=== PATIENT | female | born 1960 | race Caucasian/White ===

== ENCOUNTER 2019-03-05 12:00 | Inpatient (IN) | payer BC ==
[2019-03-05] MEDS ORDERED: SODIUM CHLORIDE 0.9% 1,000 ML IV STA (12:54)
[2019-03-05 13:21] LABS: Anisocytosis Slight; Basophils % (A) 0 %; Eosinophils # (A) 0.1 k/uL (0-0.7); Eosinophils % (A) 1 %; HCT 36.1 % (34.0-46.0); HGB 11.3 gm/dL (11.4-16.0); Hypochromasia Slight; Lymphocytes # (A) 0.8 k/uL (1.0-4.8); Lymphocytes % (A) 13 %; MCH 27.8 pg (25.0-35.0); MCHC 31.3 g/dL (31.0-37.0); MCV 88.8 fL (80.0-100.0); Mean Platelet Volume 7.5; Monocytes # (A) 0.4 k/uL (0-1.0); Monocytes % (A) 6 %; Neutrophils # (A) 4.7 k/uL (1.3-7.7); Neutrophils % (A) 78 %; Platelet Count 360 k/uL (150-450); RBC 4.06 m/uL (3.80-5.40); RDW 16.6 % (11.5-15.5); WBC 6.1 k/uL (3.8-10.6)
[2019-03-05 13:35] LABS: Albumin 4.1 g/dL (3.5-5.0); Magnesium 2.1 mg/dL (1.6-2.3); Potassium 4.6 mmol/L (3.5-5.1); Total Bilirubin 2.5 mg/dL (0.2-1.3); Total Protein 7.7 g/dL (6.3-8.2)
[2019-03-05 13:39] LABS: Partial Thromboplastin Time 22.1 sec (22.0-30.0); Prothrombin Time 10.5 sec (9.0-12.0)
[2019-03-05] MEDS ORDERED: ORPHENADRINE 30 MG/ML 2 ML VIAL IVP STA (13:41)
[2019-03-05] MEDS ORDERED: methylPREDNISolone SOD SUCCI 125 MG/2 ML VIAL IV STA (13:41)
[2019-03-05] MEDS ORDERED: KETOROLAC 30 MG/ML 1 ML VIAL IVP STA (13:41)
--- NOTE | 2019-03-05 14:02 | ED ---
Back Pain HPI - General Chief Complaint: Back Pain/Injury Stated Complaint: sciatica pain, weakness Time Seen by Provider: 03/05/19 12:11 Source: patient, RN notes reviewed, old records reviewed Limitations: no limitations - History of Present Illness Initial Comments: Patient is a 50-year-old female with multiple complaints. She states that she's been having bilateral lower back pain, related to sciatica pain radiating down her leg. She reports severe over the past few weeks. Patient states that she also has decreased appetite, complains of some episodes of rectal pain and some bloody stools. She states that she feels generally weak and fatigued. Patient states that she's had no fevers. She states that she feels extremely nauseated again about food. Patient reports an unintentional weight loss. She denies any chest pain or shortness of breath. Patient states she does not go to the doctor often. She is never had a history of colonoscopy. - Related Data Home Medications Medication Instructions Recorded Confirmed No Known Home Medications 03/05/19 03/05/19 Allergies Allergy/AdvReac Type Severity Reaction Status Date / Time No Known Allergies Allergy Verified 03/05/19 13:17 Review of Systems ROS Statement: Those systems with pertinent positive or pertinent negative responses have been documented in the HPI. ROS Other: All systems not noted in ROS Statement are negative. Past Medical History Past Medical History: No Reported History History of Any Multi-Drug Resistant Organisms: None Reported Past Surgical History: No Surgical Hx Reported Past Psychological History: No Psychological Hx Reported Smoking Status: Never smoker Past Alcohol Use History: Rare Past Drug Use History: None Reported General Exam - General Exam Comments Initial Comments: 50-year-old female. Patient appears generally fatigued and weak. Limitations: no limitations Head exam: Present: atraumatic, normocephalic, normal inspection Eye exam: Present: normal appearance, PERRL, EOMI. Absent: scleral icterus, conjunctival injection, periorbital swelling ENT exam: Present: normal exam, mucous membranes moist Neck exam: Present: normal inspection. Absent: tenderness, meningismus, lymphadenopathy Respiratory exam: Present: normal lung sounds bilaterally. Absent: respiratory distress, wheezes, rales, rhonchi, stridor Cardiovascular Exam: Present: regular rate, normal rhythm, normal heart sounds. Absent: systolic murmur, diastolic murmur, rubs, gallop, clicks GI/Abdominal exam: Present: soft, normal bowel sounds. Absent: distended, tenderness, guarding, rebound, rigid Rectal exam: Present: normal inspection, normal rectal tone, tenderness (Patient has rectal tenderness. Positive fecal occult with bright red blood.) Extremities exam: Present: normal inspection, full ROM, normal capillary refill. Absent: tenderness, pedal edema, joint swelling, calf tenderness Back exam: Present: normal inspection Neurological exam: Present: alert, oriented X3, CN II-XII intact Course Vital Signs 03/05/19 12:06 Temperature 97.4 F L Pulse Rate 67 Respiratory 18 Rate Blood Pressure 176/111 O2 Sat by Pulse 96 Oximetry Medical Decision Making - Medical Decision Making Patient is a 50-year-old female with multiple complaints complaining of fatigue, generalized weight loss. She also complained of lower back pain radiating down her legs. With patient's multiple symptoms we did a workup. Patient was found have a significantly elevated transaminases, elevated calcium. With the concerns are some intermittent rectal pain we did do a rectal exam which was positive for tenderness and bright red blood. No significant hemorrhoid appreciated. Patient underwent CT evident pulse was social concern for a 8 cm mass seemed to be setting from the cervix but correlating with the rectum with rectal inflammation. There is also evidence of adenopathy throughout the entire abdomen and pelvis and multiple metastases over the liver. Patient was informed of these results. Concern for rectal cancer with metastases. I discussed the case with Dr. Clark who agrees to admission. I also discussed the case with Dr. patton who will be on consult. The same patiently admitted for IV fluids and pain management. - Lab Data Result diagrams: 03/05/19 13:11 03/05/19 13:11 Lab Results 03/05/19 03/05/19 03/05/19 Range/Units 13:11 13:11 13:11 WBC 6.1 (3.8-10.6) k/uL RBC 4.06 (3.80-5.40) m/uL Hgb 11.3 L (11.4-16.0) gm/dL Hct 36.1 (34.0-46.0) % MCV 88.8 (80.0-100.0) fL MCH 27.8 (25.0-35.0) pg MCHC 31.3 (31.0-37.0) g/dL RDW 16.6 H (11.5-15.5) % Plt Count 360 (150-450) k/uL Neutrophils % 78 % Lymphocytes % 13 % Monocytes % 6 % Eosinophils % 1 % Basophils % 0 % Neutrophils # 4.7 (1.3-7.7) k/uL Lymphocytes # 0.8 L (1.0-4.8) k/uL Monocytes # 0.4 (0-1.0) k/uL Eosinophils # 0.1 (0-0.7) k/uL Basophils # 0.0 (0-0.2) k/uL Hypochromasia Slight Anisocytosis Slight PT 10.5 (9.0-12.0) sec INR 1.0 (<1.2) APTT 22.1 (22.0-30.0) sec Sodium 137 (137-145) mmol/L Potassium 4.6 (3.5-5.1) mmol/L Chloride 95 L (98-107) mmol/L Carbon Dioxide 28 (22-30) mmol/L Anion Gap 14 mmol/L BUN 25 H (7-17) mg/dL Creatinine 1.02 (0.52-1.04) mg/dL Est GFR (CKD-EPI)AfAm 70 (>60 ml/min/1.73 sqM) Est GFR (CKD-EPI)NonAf 61 (>60 ml/min/1.73 sqM) Glucose 101 H (74-99) mg/dL Calcium 12.0 H (8.4-10.2) mg/dL Magnesium 2.1 (1.6-2.3) mg/dL Total Bilirubin 2.5 H (0.2-1.3) mg/dL AST 430 H (14-36) U/L ALT 144 H (9-52) U/L Alkaline Phosphatase 697 H (38-126) U/L Troponin I (0.000-0.034) ng/mL Total Protein 7.7 (6.3-8.2) g/dL Albumin 4.1 (3.5-5.0) g/dL Amylase 47 (30-110) U/L Lipase 88 (23-300) U/L TSH 2.100 (0.465-4.680) mIU/L Urine Color Urine Appearance (Clear) Urine pH (5.0-8.0) Ur Specific [place] (1.001-1.035) Urine Protein (Negative) Urine Glucose (UA) (Negative) Urine Ketones (Negative) Urine Blood (Negative) Urine Nitrite (Negative) Urine Bilirubin (Negative) Urine Urobilinogen (<2.0) mg/dL Ur Leukocyte Esterase (Negative) Urine RBC (0-5) /hpf Urine WBC (0-5) /hpf Ur Squamous Epith Cells (0-4) /hpf Urine Mucus (None) /hpf Stool Occult Blood (Negative) 03/05/19 03/05/19 03/05/19 Range/Units 13:11 14:30 15:50 WBC (3.8-10.6) k/uL RBC (3.80-5.40) m/uL Hgb (11.4-16.0) gm/dL Hct (34.0-46.0) % MCV (80.0-100.0) fL MCH (25.0-35.0) pg MCHC (31.0-37.0) g/dL RDW (11.5-15.5) % Plt Count (150-450) k/uL Neutrophils % % Lymphocytes % % Monocytes % % Eosinophils % % Basophils % % Neutrophils # (1.3-7.7) k/uL Lymphocytes # (1.0-4.8) k/uL Monocytes # (0-1.0) k/uL Eosinophils # (0-0.7) k/uL Basophils # (0-0.2) k/uL Hypochromasia Anisocytosis PT (9.0-12.0) sec INR (<1.2) APTT (22.0-30.0) sec Sodium (137-145) mmol/L Potassium (3.5-5.1) mmol/L Chloride (98-107) mmol/L Carbon Dioxide (22-30) mmol/L Anion Gap mmol/L BUN (7-17) mg/dL Creatinine (0.52-1.04) mg/dL Est GFR (CKD-EPI)AfAm (>60 ml/min/1.73 sqM) Est GFR (CKD-EPI)NonAf (>60 ml/min/1.73 sqM) Glucose (74-99) mg/dL Calcium (8.4-10.2) mg/dL Magnesium (1.6-2.3) mg/dL Total Bilirubin (0.2-1.3) mg/dL AST (14-36) U/L ALT (9-52) U/L Alkaline Phosphatase (38-126) U/L Troponin I <0.012 (0.000-0.034) ng/mL Total Protein (6.3-8.2) g/dL Albumin (3.5-5.0) g/dL Amylase (30-110) U/L Lipase (23-300) U/L TSH (0.465-4.680) mIU/L Urine Color Yellow Urine Appearance Cloudy H (Clear) Urine pH 5.5 (5.0-8.0) Ur Specific [place] 1.028 (1.001-1.035) Urine Protein Trace H (Negative) Urine Glucose (UA) Negative (Negative) Urine Ketones Negative (Negative) Urine Blood Trace H (Negative) Urine Nitrite Negative (Negative) Urine Bilirubin 1+ H (Negative) Urine Urobilinogen 3.0 (<2.0) mg/dL Ur Leukocyte Esterase Trace H (Negative) Urine RBC 1 (0-5) /hpf Urine WBC 8 H (0-5) /hpf Ur Squamous Epith Cells 3 (0-4) /hpf Urine Mucus Occasional H (None) /hpf Stool Occult Blood Positive H (Negative) 03/05/19 14:39 EKG performed at 1421 shows normal sinus rhythm normal EKG. Blood sugar rate of 83 bpm. Intervals 154 ms. Frustration 94 ms. QT QTc is 362/433 ms. No evidence of ST elevation. - Radiology Data Radiology results: report reviewed Large mass measuring up to 8.7 cm in the low pelvis appears to originate from the cervix although abuts to the rectum and could represent an exophytic rectal mass is her circumferential rectal mucosal thickening with history of bloody stool. Innumerable hepatic metastases with the largest was confluently lesion measuring 8.7 cm. Abnormal adenopathy within the abdomen and pelvis presumed to be metastatic. Multiple volume abdominal ascites. Hydropic size of the gallbla dder. Chest x-rays negative for any acute process. Multilevel degenerative disease disease and facet arthropathy. Foraminal encroachment suspected. Follow-up MRI. Disposition Clinical Impression: Rectal mass, Metastases to the liver, Transaminitis Disposition: ADMITTED IP TO THIS HOSP Condition: Stable Is patient prescribed a controlled substance at d/c from ED?: No Referrals: None,Stated [Primary Care Provider] - 1-2 days Time of Disposition: 16:51
--- NOTE | 2019-03-05 14:16 | XR ---
EXAMINATION TYPE: XR chest 2V DATE OF EXAM: 03/05/2019 COMPARISON: NONE TECHNIQUE: PA and lateral views submitted. HISTORY: Chest pain FINDINGS: The lungs are clear and there is no pneumothorax, pleural effusion, or focal pneumonia. Hypertrophi c and degenerative change of the spine. IMPRESSION: 1. No acute process.
--- NOTE | 2019-03-05 14:17 | XR ---
EXAM TYPE: LUMBAR SPINE X RAY SERIES COMPARISON: NONE HISTORY: Pain TECHNIQUE: 3 views are submitted. FINDINGS: Alignment is anatomic. The pedicles are intact. The transverse processes are intact. There is mult ilevel degenerative disc disease and facet arthropathy. Diffuse osteopenia noted. IMPRESSION: 1. Multilevel degenerative disc disease and facet arthropathy. Multilevel foraminal encroachment susp ected. Follow-up MRI recommended
[2019-03-05] MEDS ORDERED: MORPHINE SULFATE 4 MG/ML SYRINGE IVP STA (15:48)
--- NOTE | 2019-03-05 15:51 | CT ---
EXAMINATION TYPE: CT abdomen pelvis w con DATE OF EXAM: 03/05/2019 HISTORY: Lower back pain, bloody stool and nausea CT DLP: 1430.9mGycm Automated Exposure Control for Dose Reduction was Utilized. CONTRAST: CT scan of the abdomen and pelvis is performed with IV Contrast, patient injected with 100 mL of Isov ue 300. COMPARISON: None. FINDINGS: There are innumerable hepatic masses compatible with multifocal hepatic metastasis. The lar gest most confluent mass seen centrally within the liver measures up to 8.7 x 5.7 cm. There is also p erihepatic fluid and hydropic size of the gallbladder measuring up to 10.7 cm. An abnormal mass in the low pelvis appears cervical and origin and is bilobed measuring at least 8.7 x 5.9 cm. This impresses upon the rectum and less likely originates from the rectum. There are also m ultiple abnormal lymph nodes in the pelvis measuring up to 2.0 x 2.9 cm marked on image 78 in the mes orectal fascia. Free fluid is seen dependently within the pelvis. The spleen, adrenal glands, pancreas, and kidneys are of unremarkable enhancement and morphology. No hydronephrosis is seen of either kidney. There is slight asymmetry in size of the kidneys, right grea ter than left with malrotation of the right kidney. Diastases recti is noted. There is no dilated large or small bowel. Circumferential rectal wall thick ening may be reactive. Fluid is seen surrounding the splenic flexure. Fluid is also seen near the cec um although the appendix appears within normal limits in size and is air-filled. Mild atherosclerosis is seen in the abdominal aorta and its branches. Abnormal adenopathy is seen near the earle hepatis and within the gastric hepatic ligament with lymph node on image 34 measuring up to 2.3 cm in short axis and abnormal peripancreatic lymph nodes measur ing up to 1.1 cm in short axis. No acute osseous pathology is seen. Degenerative changes of the spine are noted. IMPRESSION: 1. Large bilobed mass measuring up to 8.7 cm in the low pelvis appears to originate from the cervix a lthough abuts the rectum and could represent an exophytic rectal mass as there is circumferential rec zahra mucosal thickening patient's history of bloody stool. Direct visualization of the pelvis is recom mended. 2. Innumerable hepatic metastases with the largest most confluent lesion measuring up to 8.7 cm. 3. Abnormal adenopathy within the abdomen and pelvis is presumed metastatic. 4. Small volume abdominal ascites. 5. Hydropic size of the gallbladder.
[2019-03-05 16:04] LABS: Appearance,Urine Cloudy (Clear); Bilirubin,Urine 1+ (Negative); Blood,Urine Trace (Negative); Color,Urine Yellow; Glucose,Urine (UA) Negative (Negative); Ketones,Urine Negative (Negative); Leukocyte Esterase,Urine Trace (Negative); Mucus,Urine Occasional /hpf; Nitrite,Urine Negative (Negative); PH, Urine 5.5 (5.0-8.0); Protein,Urine Trace (Negative); RBC,Urine 1 /hpf (0-5); Specific Gravity,Urine 1.028 (1.001-1.035); Squamous Epithelial Cell,Urine 3 /hpf (0-4); WBC,Urine 8 /hpf (0-5)
[2019-03-05] MEDS ORDERED: MORPHINE SULFATE 4 MG/ML SYRINGE IV PRN (16:51)
[2019-03-05] MEDS ORDERED: NALOXONE 0.4 MG/ML 1 ML VIAL IV PRN (16:51)
[2019-03-05] MEDS ORDERED: LABETALOL 5 MG/ML VIAL MDV IVP STA (18:10)
--- NOTE | 2019-03-05 18:12 | P.HPIM ---
History of Present Illness H&P Date: 03/05/19 Patient is a 58-year-old female with no known PMH, who hasn't seen a physician for many years presented to the ED with multiple complaints. The patient reports that over the past several years, she has had intermittent lower back pain, which she attributed to DJD and attempted to manage conservatively. She states that her pain radiates to both her buttocks, as it has been previously for several years. She notes that 2 weeks ago however her pain somewhat worsened and she also developed worsening lethargy, weight loss, and anorexia. She made an appointment with a PCP but in light of her worsening lethargy, she decided to come to the ED. She also endorsed noticing occasional bright red blood in her stools which she attributes to constipation and straining. She otherwise denied fever, chills, nausea, vomiting, chest pain, or SOB. She also denied LE weakness. The patient underwent an extensive evaluation w/ CT abd/pelvis w/ contrast showing large bilobed mass measuring up to 8.7 cm in the low pelvis. Innumerable hepatic mets w/ largest being 8.7 cm with abnormal adenopathy within the abdomen and pelvis, presumed metastatic. EKG revealed normal sinus rhythm at 86 bpm. CXR was unremarkable. Laboratory evaluation revealed a troponin of less than 0.012, FOBT positive, total bili elevated at 2.5, AST 430, ALT 144, alk phos 697, WBC 6.1, hemoglobin 11.3, platelets 360, BUN 25, and creatinine 1.02. The patient is being admitted to the medicine service for further evaluation of suspected malignancy. Review of Systems Pertinent positives and negatives as discussed in HPI, a complete review of systems was performed and all other systems are negative. Past Medical History Past Medical History: No Reported History History of Any Multi-Drug Resistant Organisms: None Reported Past Surgical History: No Surgical Hx Reported Past Psychological History: No Psychological Hx Reported Smoking Status: Never smoker Past Alcohol Use History: Rare Past Drug Use History: None Reported Medications and Allergies Home Medications Medication Instructions Recorded Confirmed Type No Known Home Medications 03/05/19 03/05/19 History Allergies Allergy/AdvReac Type Severity Reaction Status Date / Time No Known Allergies Allergy Verified 03/05/19 13:17 Physical Exam Vitals: Vital Signs Temp Pulse Resp BP Pulse Ox 03/05/19 12:06 97.4 F L 67 18 176/111 96 Intake and Output 03/05/19 03/05/19 03/05/19 06:59 14:59 22:59 Other: Weight 101.605 kg General: non toxic, no distress, appears at stated age, obese Derm: no unusual rashes/lesions no unusual ecchymoses, warm, dry Head: atraumatic, normocephalic, symmetric Eyes: EOMI, no lid lag, anicteric sclera, pupils equal round reactive to light ENT: Nose and ears atraumatic, no thrush, no pharyngeal erythema Neck: No thyromegaly, no cervical lymphadenopathy, trachea midline, supple Mouth: no lip lesion, mucus membranes moist Cardiovascular: S1S2 reg, no murmur, positive posterior tibial pulse bilateral, no edema, capillary refill less than 2 seconds Lungs: CTA bilateral, no rhonchi, no rales , no accessory muscle use Abdominal: soft, nontender to palpation, no guarding, no appreciable organomegaly, normal bowel sounds Ext: no gross muscle atrophy, muscle strength 5 out of 5 in all 4 extremities grossly, no contractures, lumbar spinal and paraspinal tenderness Neuro: CN II-XI grossly intact, light touch intact all 4 extremities, finger to nose within normal limits, babinski downards saurabh Psych: Alert, oriented, appropriate affect Results CBC & Chem 7: 03/05/19 13:11 03/05/19 13:11 Labs: Abnormal Lab Results - Last 24 Hours (Table) 03/05/19 03/05/19 03/05/19 Range/Units 13:11 13:11 14:30 Hgb 11.3 L (11.4-16.0) gm/dL RDW 16.6 H (11.5-15.5) % Lymphocytes # 0.8 L (1.0-4.8) k/uL Chloride 95 L (98-107) mmol/L BUN 25 H (7-17) mg/dL Glucose 101 H (74-99) mg/dL Calcium 12.0 H (8.4-10.2) mg/dL Total Bilirubin 2.5 H (0.2-1.3) mg/dL AST 430 H (14-36) U/L ALT 144 H (9-52) U/L Alkaline Phosphatase 697 H (38-126) U/L Urine Appearance (Clear) Urine Protein (Negative) Urine Blood (Negative) Urine Bilirubin (Negative) Ur Leukocyte Esterase (Negative) Urine WBC (0-5) /hpf Urine Mucus (None) /hpf Stool Occult Blood Positive H (Negative) 03/05/19 Range/Units 15:50 Hgb (11.4-16.0) gm/dL RDW (11.5-15.5) % Lymphocytes # (1.0-4.8) k/uL Chloride (98-107) mmol/L BUN (7-17) mg/dL Glucose (74-99) mg/dL Calcium (8.4-10.2) mg/dL Total Bilirubin (0.2-1.3) mg/dL AST (14-36) U/L ALT (9-52) U/L Alkaline Phosphatase (38-126) U/L Urine Appearance Cloudy H (Clear) Urine Protein Trace H (Negative) Urine Blood Trace H (Negative) Urine Bilirubin 1+ H (Negative) Ur Leukocyte Esterase Trace H (Negative) Urine WBC 8 H (0-5) /hpf Urine Mucus Occasional H (None) /hpf Stool Occult Blood (Negative) Assessment and Plan Plan: Pelvic mass, concerning for rectal malignancy w/ mets to liver -Surgery and Oncology consulted -Check CEA and CA 19-9 Abnormal LFTs -Likely secondary to tumor burden -Monitor for now Lower back pain w/ radiation to buttocks -Obtain lumbar spine MRI -Received 125 mg Solumedrol in ED -Neurovascular checks -Fall precautions -Neurology consult Elevated BP -Possibly secondary to pain -Monitor for now -Begin antihypertensives as warranted Normocytic anemia -Likely secondary to GI bleeding in setting of malignancy -Monitor for now DVT prophylaxis -IPCDs The patient is admitted with an anticipated greater than 2 midnight stay for evaluation of rectal malignancy. CODE STATUS:Full Code Discussed with: Patient Anticipated discharge date: 3-[address]: Home A total of 45 minutes was spent on the care of this complex patient more than 50% of the time was spent in counseling and care coordination.
[2019-03-05] MEDS: SODIUM CHLORIDE 0.9% 1,000 ML IV SCH (18:25)
[2019-03-05] MEDS ORDERED: cloNIDine HCL 0.2 MG TAB PO STA (19:59)
[2019-03-06] MEDS: HYDROcodone/APAP 5-325MG 1 EACH TAB PO PRN ×3 (00:19→22:34)
[2019-03-06] MEDS: SODIUM CHLORIDE 0.9% 1,000 ML IV SCH ×3 (04:00→22:34)
[2019-03-06 07:42] LABS: HCT 32.2 % (34.0-46.0); HGB 9.9 gm/dL (11.4-16.0); Hypochromasia Marked; MCH 28.3 pg (25.0-35.0); MCHC 30.8 g/dL (31.0-37.0); Mean Platelet Volume 7.6; Platelet Count 337 k/uL (150-450)
[2019-03-06 07:44] LABS: Albumin 3.7 g/dL (3.5-5.0); Calcium 11.4 mg/dL (8.4-10.2); Potassium 4.9 mmol/L (3.5-5.1); Total Bilirubin 2.3 mg/dL (0.2-1.3)
[2019-03-06] MEDS: PANTOPRAZOLE 40 MG/10 ML VIAL IV SCH (08:37)
--- NOTE | 2019-03-06 08:45 | P.GSCN ---
History of Present Illness Consult date: 03/06/19 Reason for Consult: Pelvic mass with hepatic metastases History of present illness: This a 58-year-old female who was admitted to the hospital with complaints of abdominal pain and bloating. Patient's workup found evidence of metastatic pelvic mass with hepatic metastases. The mass appears to be originating from the cervix. Patient states that she's had a four-month history of abdominal and back pain. She states she has been well and has never seen a physician for this. Past Medical History Past Medical History: No Reported History History of Any Multi-Drug Resistant Organisms: None Reported Past Surgical History: No Surgical Hx Reported Past Psychological History: Depression Smoking Status: Never smoker Past Alcohol Use History: Rare Past Drug Use History: None Reported - Past Family History Mother Family Medical History: Hypertension Additional Family Medical History / Comment(s): triple bypass years ago Father Family Medical History: CVA/TIA Medications and Allergies Home Medications Medication Instructions Recorded Confirmed Type Naproxen Sodium [Aleve] 1 tab-cap PO HS 03/05/19 03/05/19 History Allergies Allergy/AdvReac Type Severity Reaction Status Date / Time No Known Allergies Allergy Verified 03/05/19 22:16 Surgical - Exam Vital Signs Temp Pulse Resp BP Pulse Ox 97.4 F L 67 18 176/111 96 03/05/19 12:06 03/05/19 12:06 03/05/19 12:06 03/05/19 12:06 03/05/19 12:06 - General well developed, no distress - Eyes icteric - ENT normal pinna - Neck no masses - Respiratory normal expansion - Cardiovascular Rhythm: regular - Abdomen Mild diffuse tenderness. There is no rebound or guarding Abdomen: soft Results - Labs 03/06/19 07:03 03/06/19 07:03 Abnormal Lab Results - Last 24 Hours (Table) 03/05/19 03/05/19 03/05/19 Range/Units 13:11 13:11 14:30 RBC (3.80-5.40) m/uL Hgb 11.3 L (11.4-16.0) gm/dL Hct (34.0-46.0) % MCHC (31.0-37.0) g/dL RDW 16.6 H (11.5-15.5) % Lymphocytes # 0.8 L (1.0-4.8) k/uL Chloride 95 L (98-107) mmol/L BUN 25 H (7-17) mg/dL Glucose 101 H (74-99) mg/dL Calcium 12.0 H (8.4-10.2) mg/dL Total Bilirubin 2.5 H (0.2-1.3) mg/dL AST 430 H (14-36) U/L ALT 144 H (9-52) U/L Alkaline Phosphatase 697 H (38-126) U/L Urine Appearance (Clear) Urine Protein (Negative) Urine Blood (Negative) Urine Bilirubin (Negative) Ur Leukocyte Esterase (Negative) Urine WBC (0-5) /hpf Urine Mucus (None) /hpf Stool Occult Blood Positive H (Negative) 03/05/19 03/06/19 03/06/19 Range/Units 15:50 07:03 07:03 RBC 3.50 L (3.80-5.40) m/uL Hgb 9.9 L (11.4-16.0) gm/dL Hct 32.2 L (34.0-46.0) % MCHC 30.8 L (31.0-37.0) g/dL RDW 16.0 H (11.5-15.5) % Lymphocytes # (1.0-4.8) k/uL Chloride (98-107) mmol/L BUN 28 H (7-17) mg/dL Glucose (74-99) mg/dL Calcium 11.4 H (8.4-10.2) mg/dL Total Bilirubin 2.3 H (0.2-1.3) mg/dL AST 370 H (14-36) U/L ALT 132 H (9-52) U/L Alkaline Phosphatase 585 H (38-126) U/L Urine Appearance Cloudy H (Clear) Urine Protein Trace H (Negative) Urine Blood Trace H (Negative) Urine Bilirubin 1+ H (Negative) Ur Leukocyte Esterase Trace H (Negative) Urine WBC 8 H (0-5) /hpf Urine Mucus Occasional H (None) /hpf Stool Occult Blood (Negative) Diabetes panel 03/05/19 03/06/19 Range/Units 13:11 07:03 Sodium 137 138 (137-145) mmol/L Potassium 4.6 4.9 (3.5-5.1) mmol/L Chloride 95 L 98 (98-107) mmol/L Carbon Dioxide 28 29 (22-30) mmol/L BUN 25 H 28 H (7-17) mg/dL Creatinine 1.02 0.99 (0.52-1.04) mg/dL Glucose 101 H 98 (74-99) mg/dL Calcium 12.0 H 11.4 H (8.4-10.2) mg/dL AST 430 H 370 H (14-36) U/L ALT 144 H 132 H (9-52) U/L Alkaline Phosphatase 697 H 585 H (38-126) U/L Total Protein 7.7 7.0 (6.3-8.2) g/dL Albumin 4.1 3.7 (3.5-5.0) g/dL Thyroid panel 03/05/19 Range/Units 13:11 TSH 2.100 (0.465-4.680) mIU/L Calcium panel 03/05/19 03/06/19 Range/Units 13:11 07:03 Calcium 12.0 H 11.4 H (8.4-10.2) mg/dL Albumin 4.1 3.7 (3.5-5.0) g/dL Pituitary panel 03/05/19 03/06/19 Range/Units 13:11 07:03 Sodium 137 138 (137-145) mmol/L Potassium 4.6 4.9 (3.5-5.1) mmol/L Chloride 95 L 98 (98-107) mmol/L Carbon Dioxide 28 29 (22-30) mmol/L BUN 25 H 28 H (7-17) mg/dL Creatinine 1.02 0.99 (0.52-1.04) mg/dL Glucose 101 H 98 (74-99) mg/dL Calcium 12.0 H 11.4 H (8.4-10.2) mg/dL TSH 2.100 (0.465-4.680) mIU/L Adrenal panel 03/05/19 03/06/19 Range/Units 13:11 07:03 Sodium 137 138 (137-145) mmol/L Potassium 4.6 4.9 (3.5-5.1) mmol/L Chloride 95 L 98 (98-107) mmol/L Carbon Dioxide 28 29 (22-30) mmol/L BUN 25 H 28 H (7-17) mg/dL Creatinine 1.02 0.99 (0.52-1.04) mg/dL Glucose 101 H 98 (74-99) mg/dL Calcium 12.0 H 11.4 H (8.4-10.2) mg/dL Total Bilirubin 2.5 H 2.3 H (0.2-1.3) mg/dL AST 430 H 370 H (14-36) U/L ALT 144 H 132 H (9-52) U/L Alkaline Phosphatase 697 H 585 H (38-126) U/L Total Protein 7.7 7.0 (6.3-8.2) g/dL Albumin 4.1 3.7 (3.5-5.0) g/dL - Imaging CT scan - abdomen: report reviewed (Large 9 cm pelvic mass appears to originate from cervix., Multiple hepatic metastases, hydropic gallbladder) Assessment and Plan Assessment: Pelvic mass, 9 cm appears to originate from cervix. Could represent an exophytic rectal mass. The patient will need colonoscopy when stable. She should have a [facility] consultation.
--- NOTE | 2019-03-06 11:37 | P.PN ---
Subjective Progress Note Date: 03/06/19 Patient is a 58-year-old female with no known PMH, who hasn't seen a physician for many years presented to the ED with multiple complaints. The patient reports that over the past several years, she has had intermittent lower back pain, which she attributed to DJD and attempted to manage conservatively. She states that her pain radiates to both her buttocks, as it has been previously for several years. She notes that 2 weeks ago however her pain somewhat worsened and she also developed worsening lethargy, weight loss, and anorexia. She made an appointment with a PCP but in light of her worsening lethargy, she decided to come to the ED. The patient underwent an extensive evaluation w/ CT abd/pelvis w/ contrast showing large bilobed mass measuring up to 8.7 cm in the low pelvis. Innumerable hepatic mets w/ largest being 8.7 cm with abnormal adenopathy within the abdomen and pelvis, presumed metastatic. The patient was admitted for further management of suspected malignancy. General surgery was consulted and recommended an CHEMICAL STRENGTH TESTER consult in light of possible cervical origin of the mass. Patient was seen and examined at the bedside. She notes minimal to almost no lower back pain and otherwise denied any additional complaints. She denied abdominal pain, nausea, vomiting, diarrhea, fever, or chills. She further denied any lower extremity weakness, numbness, tingling, or urinary incontinence or retention. Objective - Vital Signs Vital signs: Vital Signs Temp 97.6 F 03/06/19 04:46 Pulse 81 03/06/19 04:46 Resp 16 03/06/19 04:46 BP 166/94 03/06/19 04:46 Pulse Ox 97 03/06/19 04:46 Intake & Output 03/05/19 03/06/19 03/06/19 18:59 06:59 18:59 Intake Total 1280 Balance 1280 Weight 101.605 kg 101.605 kg Intake: Intake, IV Titration 200 Amount Sodium Chloride 0.9% 1, 200 000 ml @ 100 mls/hr IV . Q10H [facility] Rx#:[id number] Oral 1080 Other: Voiding Method Toilet # Voids 3 - Exam General: Non-toxic, in no acute distress, appears stated age HEENT: NC/AT, anicteric sclerae, moist conjunctiva, no lid-lag, PERRLA Cardiovascular: S1/S2 wnl, no murmurs, rubs, or gallops Lungs: Clear to auscultation, normal respiratory effort, no accessory muscle use Abdominal: Soft, non-tender, non-distended, no guarding, rebound, or rigidity Skin: Warm, dry Extremities: No edema or contractures Psychiatric: Alert and oriented to person, place and time, appropriate affect Neuro: CN II-XII grossly intact, Strength 5/5 in all 4 extremities, Speech intact, Sensation to light touch grossly intact throughout - Labs CBC & Chem 7: 03/06/19 07:03 03/06/19 07:03 Labs: Abnormal Lab Results - Last 24 Hours (Table) 03/05/19 03/05/19 03/05/19 Range/Units 13:11 13:11 14:30 RBC (3.80-5.40) m/uL Hgb 11.3 L (11.4-16.0) gm/dL Hct (34.0-46.0) % MCHC (31.0-37.0) g/dL RDW 16.6 H (11.5-15.5) % Lymphocytes # 0.8 L (1.0-4.8) k/uL Chloride 95 L (98-107) mmol/L BUN 25 H (7-17) mg/dL Glucose 101 H (74-99) mg/dL Calcium 12.0 H (8.4-10.2) mg/dL Total Bilirubin 2.5 H (0.2-1.3) mg/dL AST 430 H (14-36) U/L ALT 144 H (9-52) U/L Alkaline Phosphatase 697 H (38-126) U/L Urine Appearance (Clear) Urine Protein (Negative) Urine Blood (Negative) Urine Bilirubin (Negative) Ur Leukocyte Esterase (Negative) Urine WBC (0-5) /hpf Urine Mucus (None) /hpf Stool Occult Blood Positive H (Negative) 03/05/19 03/06/19 03/06/19 Range/Units 15:50 07:03 07:03 RBC 3.50 L (3.80-5.40) m/uL Hgb 9.9 L (11.4-16.0) gm/dL Hct 32.2 L (34.0-46.0) % MCHC 30.8 L (31.0-37.0) g/dL RDW 16.0 H (11.5-15.5) % Lymphocytes # (1.0-4.8) k/uL Chloride (98-107) mmol/L BUN 28 H (7-17) mg/dL Glucose (74-99) mg/dL Calcium 11.4 H (8.4-10.2) mg/dL Total Bilirubin 2.3 H (0.2-1.3) mg/dL AST 370 H (14-36) U/L ALT 132 H (9-52) U/L Alkaline Phosphatase 585 H (38-126) U/L Urine Appearance Cloudy H (Clear) Urine Protein Trace H (Negative) Urine Blood Trace H (Negative) Urine Bilirubin 1+ H (Negative) Ur Leukocyte Esterase Trace H (Negative) Urine WBC 8 H (0-5) /hpf Urine Mucus Occasional H (None) /hpf Stool Occult Blood (Negative) Assessment and Plan Plan: Pelvic mass, concerning for cervical versus rectal malignancy w/ mets to liver -General surgery recommendations appreciated. CHEMICAL STRENGTH TESTER consulted -Check CEA and CA 19-9 Abnormal LFTs -Likely secondary to tumor burden -Monitor for now Lower back pain w/ radiation to buttocks -MRI lumbar spine is pending -Received 125 mg Solumedrol in ED -Neurovascular checks -Fall precautions -Neurology consult Elevated BP -Possibly secondary to pain -Monitor for now -Begin antihypertensives as warranted Normocytic anemia -Likely secondary to GI bleeding in setting of malignancy -Monitor for now DVT prophylaxis -IPCDs Discussed with: Patient, Sister Anticipated discharge date: 2-[address]: Home A total of 35 minutes was spent on the care of this complex patient more than 50% of the time was spent in counseling and care coordination.
[2019-03-06] MEDS ORDERED: AMPICILLIN-SULBACTAM 3 GM in SODIUM CHLORIDE 0.9% 100 ML IVPB SCH (12:15)
[2019-03-06] MEDS ORDERED: RX INFO: IV CONTRAST WAS GIVEN 1 EACH MISC MISCELLANE PRN (12:25)
--- NOTE | 2019-03-06 12:25 | P.CONS ---
History of Present Illness - Reason for Consult Consult date: 03/06/19 Pelvic mass, liver mass - History of Present Illness The patient is a 58-year-old white female, and overall good health. She has a long-standing history of low back pain with radiation into the buttock area bilaterally, over many years. However the patient has noted a change in her health status, since about late 01/20. She stated that since then her appetite had diminished, as eating would make her nauseous, especially certain kinds of food. She had been losing weight gradually since 08/22 deliberately, but noted accelerated weight loss over the past month. She also noted constipation, and requirement of increased straining for defecation, over the past 2-3 weeks, which she attributed to not eating as well. She also had intermittent episodes of passing small amounts of blood in the stool, which he also attributed to straining. She has continued to work, but noted significant increase in fatigue over the past 1-2 weeks Over the weeks prior to admission, the patient noted a significant increase in her back pain, and also change in character. In addition to radiation down the legs, she also noted increased pain in the central lower back, and radiation in a bandlike fashion across the lower back. She therefore came into the emergency room, and had workup done with CT scans of the abdomen and pelvis. This revealed a large bilobed mass in the central pelvis. This seemed to be arising from the cervix area, causing significant compression on the rectum. Mass alternating from the isthmus/cervix with external compression of the rectum was felt to be more likely, rather than a rectal mass growing exophytically. In addition the patient was noted to have multiple liver lesions, with the dominant one appearing to be due to confluent masses, measuring a total of 8.7 cm in maximal dimension, in the central aspect of the liver Other findings included enlarged portal and gastrohepatic nodes with the largest measuring 2.3 cm, as well as an enlarged pelvic nodes with the largest measuring 2.9 cm. There also appeared to be free fluid in the pelvis. The patient was therefore admitted further management and consult placed. She denied any prior history of malignancy. She has never had a colonoscopy. Her last Pap smear was many years ago. She has not had any vaginal bleeding or spotting Review of Systems Constitutional: Reports chronic pain, Reports fatigue, Reports poor appetite, Reports weakness, Reports weight loss Eyes: denies blurred vision, denies pain Ears: deny: decreased hearing, ear discharge, earache, tinnitus Ears, nose, mouth and throat: Denies headache, Denies sore throat Cardiovascular: Denies chest pain, Denies shortness of breath Respiratory: Denies cough Gastrointestinal: Reports change in bowel habits, Reports constipation, Reports hematochezia Genitourinary: Denies dysuria, Denies hematuria Menstruation: Reports postmenopausal Musculoskeletal: Reports as per HPI, Reports low back pain Integumentary: Denies pruritus, Denies rash Neurological: Denies numbness, Denies weakness Psychiatric: Denies anxiety, Denies depression Endocrine: Reports fatigue, Reports weight change Hematologic/Lymphatic: Reports as per HPI Past Medical History Past Medical History: No Reported History History of Any Multi-Drug Resistant Organisms: None Reported Past Surgical History: No Surgical Hx Reported Past Psychological History: Depression Smoking Status: Never smoker Past Alcohol Use History: Rare Past Drug Use History: None Reported - Past Family History Mother Family Medical History: Hypertension Additional Family Medical History / Comment(s): triple bypass years ago Father Family Medical History: CVA/TIA Medications and Allergies Home Medications Medication Instructions Recorded Confirmed Type Naproxen Sodium [Aleve] 1 tab-cap PO HS 03/05/19 03/05/19 History Allergies Allergy/AdvReac Type Severity Reaction Status Date / Time No Known Allergies Allergy Verified 03/05/19 22:16 Physical Exam Vitals: Vital Signs Temp Pulse Pulse Resp BP BP Pulse Ox 03/06/19 12:00 98.2 F 75 16 165/86 97 03/06/19 08:30 16 03/06/19 04:46 97.6 F 81 16 166/94 97 03/05/19 21:48 97.6 F 89 18 160/96 96 03/05/19 20:15 83 18 145/92 96 03/05/19 19:18 98 F 85 18 160/106 96 03/05/19 17:51 98.1 F 86 18 179/107 95 Intake and Output 03/05/19 03/06/19 03/06/19 22:59 06:59 14:59 Intake Total 290 990 Balance 290 990 Intake: Intake, IV Titration 200 Amount Sodium Chloride 0.9% 1, 200 000 ml @ 100 mls/hr IV . Q10H [facility] Rx#:[id number] Oral 290 790 Other: Voiding Method Toilet Toilet # Voids 1 3 Weight 101.605 kg - Constitutional General appearance: no acute distress - EENT Eyes: EOMI, PERRLA ENT: hearing grossly normal, normal oropharynx - Neck Neck: no lymphadenopathy Thyroid: bilateral: normal size - Respiratory Respiratory: bilateral: CTA - Cardiovascular Rhythm: regularly irregular (Patient is having a pause after every 2-3 beats.) Heart sounds: normal: S1, S2 - Gastrointestinal General gastrointestinal: hepatomegaly (3-4 fingerbreadths below costal margin) - Integumentary Integumentary: normal - Neurologic Neurologic: CNII-XII intact - Musculoskeletal Musculoskeletal: generalized weakness, strength equal bilaterally - Psychiatric Psychiatric: A&O x's 3, appropriate affect Results CBC & Chem 7: 03/06/19 07:03 03/06/19 07:03 Labs: Abnormal Lab Results - Last 24 Hours (Table) 03/05/19 03/05/19 03/05/19 Range/Units 13:11 13:11 14:30 RBC (3.80-5.40) m/uL Hgb 11.3 L (11.4-16.0) gm/dL Hct (34.0-46.0) % MCHC (31.0-37.0) g/dL RDW 16.6 H (11.5-15.5) % Lymphocytes # 0.8 L (1.0-4.8) k/uL Chloride 95 L (98-107) mmol/L BUN 25 H (7-17) mg/dL Glucose 101 H (74-99) mg/dL Calcium 12.0 H (8.4-10.2) mg/dL Total Bilirubin 2.5 H (0.2-1.3) mg/dL AST 430 H (14-36) U/L ALT 144 H (9-52) U/L Alkaline Phosphatase 697 H (38-126) U/L Urine Appearance (Clear) Urine Protein (Negative) Urine Blood (Negative) Urine Bilirubin (Negative) Ur Leukocyte Esterase (Negative) Urine WBC (0-5) /hpf Urine Mucus (None) /hpf Stool Occult Blood Positive H (Negative) 03/05/19 03/06/19 03/06/19 Range/Units 15:50 07:03 07:03 RBC 3.50 L (3.80-5.40) m/uL Hgb 9.9 L (11.4-16.0) gm/dL Hct 32.2 L (34.0-46.0) % MCHC 30.8 L (31.0-37.0) g/dL RDW 16.0 H (11.5-15.5) % Lymphocytes # (1.0-4.8) k/uL Chloride (98-107) mmol/L BUN 28 H (7-17) mg/dL Glucose (74-99) mg/dL Calcium 11.4 H (8.4-10.2) mg/dL Total Bilirubin 2.3 H (0.2-1.3) mg/dL AST 370 H (14-36) U/L ALT 132 H (9-52) U/L Alkaline Phosphatase 585 H (38-126) U/L Urine Appearance Cloudy H (Clear) Urine Protein Trace H (Negative) Urine Blood Trace H (Negative) Urine Bilirubin 1+ H (Negative) Ur Leukocyte Esterase Trace H (Negative) Urine WBC 8 H (0-5) /hpf Urine Mucus Occasional H (None) /hpf Stool Occult Blood (Negative) Chest x-ray: report reviewed CT scan - abdomen: report reviewed CT scan - pelvis: report reviewed Assessment and Plan (1) Pelvic mass in female Narrative/Plan: The patient is presenting with multiple signs and symptoms as detailed in the HPI. She is noted to have a large central pelvic mass, along with what appears to be metastatic disease in the liver. The clinical picture, including imaging studies, and implications were discussed in detail with her and her family. She was advised that this time the primary differential diagnosis is a malignancy arising in the pelvis, with metastasis to the liver. In regards to the primary site, origin from the uterine isthmus or cervix, versus the rectum appears most likely. Based on the computed tomography scan appearance, the former is favored. The patient and her family were advised that the next step would be obtaining a tissue diagnosis. Possible approaches to that could include endoscopic examination of the rectum, as well as pelvic exam by gynecology. Another approach, which I would actually somewhat favour, would be to proceed with a liver biopsy. Post biopsy would be able to confirm malignancy, and staining pattern would generally be able to distinguish between the above-mentioned primary sites. Based on that then direct examination of the primary site can be performed if needed. At this time the patient does not appear to be having any definite bowel obstruction symptoms, or uncontrolled bleeding Prognosis and management options were discussed in general at this time. She was advised that, assuming that metastatic malignancy from one of the above- mentioned sites is confirmed, the mainstay of treatment would be systemic therapy. As metastatic disease from the above sites is not usually considered curable, the objective of treatment would be prolongation of life and palliation of symptoms. Local treatment such as aggressive surgery or radiation would be reserved for palliation of symptoms if needed Current Visit: Yes Status: Acute Code(s): R19.00 - INTRA-ABD AND PELVIC SWELLING, MASS AND LUMP, UNSP SITE SNOMED Code(s): 39588186 (2) Metastases to the liver Narrative/Plan: As above. This is likely responsible for her symptoms of nausea and decreased a ppetite . As noted above, I would recommend proceeding with liver biopsy as initial step. Consult will be placed to IR. Monitor liver enzymes for any evidence of rapidly progressing liver decompensation Current Visit: Yes Status: Acute Code(s): C78.7 - SECONDARY MALIG NEOPLASM OF LIVER AND INTRAHEPATIC BILE DUCT SNOMED Code(s): 02722081 (3) Anemia Narrative/Plan: Differentials include anemia of blood loss, as well as hypoproliferative anemia due to malignancy related inflammation. Iron studies will be ordered. Continue to monitor hemoglobin. Current Visit: Yes Status: Acute Code(s): D64.9 - ANEMIA, UNSPECIFIED SNOMED Code(s): 464048569
--- NOTE | 2019-03-06 14:08 | MR ---
MR lumbar spine wo/w con Lower back pain, malignancy, w/ pain radiating Gadavist Multiplanar, multiecho imaging of the lumbar spine was obtained without contrast on a 3 Kristy magnet. REFERENCE:None. FINDINGS: Paraspinal soft tissues are normal. Vertebral body height is maintained. There is a degenerative grade 1 spondylolisthesis of L4 and L5. Alignment is otherwise maintained. Cord signal is maintained. The conus ends normally at the level of the mid body of L1 At T12-L1, the intervertebral foramina appear well maintained. There is no significant compressive di scopathy the facets are unremarkable. At L1-2, no definite abnormality is seen. At L2-3, there is mild disc space loss and disc desiccation. Intervertebral foramina are well maintai nnamdi. There is a mild, diffuse disc displacement. There is mild hypertrophic change in the facets. At L3-4, is mild disc space loss and disc desiccation. There is a diffuse disc displacement. There is mild, bilateral intervertebral foraminal narrowing. There is hypertrophic changes within the facets. There is mild trefoiling of the thecal sac. At L4-5, intervertebral foramina appear reasonably well-maintained. There is a broad-based disc displ acement. This hypertrophic changes in the facets. There is moderate central canal compromise. At L5-S1, the intervertebral foramina are reasonably well-maintained. There is no significant marilu sive discopathy. There is moderate facet arthropathy. IMPRESSION:
--- NOTE | 2019-03-06 14:33 | CT ---
EXAMINATION TYPE: CT chest w con DATE OF EXAM: 03/06/2019 COMPARISON: None. HISTORY: abnormal abd/pel ct, mets CT DLP: 782 mGycm Automated exposure control for dose reduction was used. CONTRAST: CT scan of the chest is performed with IV Contrast, patient injected with 80 mL of Isovue 300. FINDINGS: The lungs are clear. There is no significant axillary, internal mammary, mediastinal or hil ar adenopathy. There is no pleural or pericardial fluid. The heart is not enlarged. There is mild jenaro cification of the coronary arteries. There are innumerable masses within the all segments of the liver. The spleen is unremarkable. Both adrenal glands are normal. The gallbladder is distended. There is hypertrophic spondylosis within the spine IMPRESSION: 1. NO INTRAPARENCHYMAL LUNG METASTASES. 2. INNUMERABLE LIVER METASTASES.
[2019-03-07] MEDS ORDERED: cloNIDine HCL 0.1 MG TAB PO STA (05:57)
[2019-03-07 07:22] LABS: HCT 32.9 % (34.0-46.0); Hypochromasia Marked; MCHC 30.5 g/dL (31.0-37.0); MCV 88.6 fL (80.0-100.0); Mean Platelet Volume 7.3; Platelet Count 334 k/uL (150-450); RBC 3.71 m/uL (3.80-5.40); RDW 15.3 % (11.5-15.5); Reticulocyte % 3.3 % (0.5-2.0); WBC 6.4 k/uL (3.8-10.6)
[2019-03-07] MEDS: HYDROcodone/APAP 5-325MG 1 EACH TAB PO PRN ×3 (08:57→23:13)
[2019-03-07] MEDS: PANTOPRAZOLE 40 MG/10 ML VIAL IV SCH (08:58)
[2019-03-07] MEDS: SODIUM CHLORIDE 0.9% 1,000 ML IV SCH (08:58)
--- NOTE | 2019-03-07 09:53 | P.PN ---
Progress Note - Text Progress Note Date: 03/07/19 The patient states she feels better. She received fluid hydration yesterday. On exam her vital signs appear stable. Abdomen soft, distended. Pelvic mass with hepatic metastases. Patient will undergo CT-guided liver biopsy. She'll will be placed on full liquid diet.
--- NOTE | 2019-03-07 11:11 | P.PN ---
Subjective Progress Note Date: 03/07/19 Patient is a 58-year-old female with no known PMH, who hasn't seen a physician for many years presented to the ED with multiple complaints. The patient reports that over the past several years, she has had intermittent lower back pain, which she attributed to DJD and attempted to manage conservatively. She states that her pain radiates to both her buttocks, as it has been previously for several years. She notes that 2 weeks ago however her pain somewhat worsened and she also developed worsening lethargy, weight loss, and anorexia. She made an appointment with a PCP but in light of her worsening lethargy, she decided to come to the ED. The patient underwent an extensive evaluation w/ CT abd/pelvis w/ contrast showing large bilobed mass measuring up to 8.7 cm in the low pelvis. Innumerable hepatic mets w/ largest being 8.7 cm with abnormal adenopathy within the abdomen and pelvis, presumed metastatic. The patient was admitted for further management of suspected malignancy. General surgery was consulted and recommended an MASSAGE COORDINATOR consult in light of possible cervical origin of the mass. Dr. Barber from oncology evaluate the patient and recommended that she would likely benefit from a biopsy of the metastatic site from the liver. MASSAGE COORDINATOR consult was thereby canceled and the patient is to be scheduled for an IR guided biopsy likely for 03/08/2019. Patient was seen and examined at the bedside. The patient notes that she is feeling well and denies any active complaints. She notes no further lower back pain. She denied chest pain, shortness of breath, nausea, vomiting, fever or chills. She continues to pass urine and bowel movements. Objective - Vital Signs Vital signs: Vital Signs Temp 97.8 F 03/07/19 05:38 Pulse 91 03/07/19 05:38 Resp 16 03/07/19 08:30 BP 155/77 03/07/19 09:28 Pulse Ox 96 03/07/19 05:38 Intake & Output 03/06/19 03/07/19 03/07/19 18:59 06:59 18:59 Intake Total 240 1390 Balance 240 1390 Weight 101.605 kg Intake: Intake, IV Titration 800 Amount Sodium Chloride 0.9% 1, 800 000 ml @ 100 mls/hr IV . [facility] Rx#:[id number] Oral 240 590 Other: Voiding Method Toilet Toilet Toilet # Voids 3 1 - Exam General: Non-toxic, in no acute distress, appears stated age HEENT: NC/AT, anicteric sclerae, moist conjunctiva, no lid-lag, PERRLA Cardiovascular: S1/S2 wnl, no murmurs, rubs, or gallops Lungs: Clear to auscultation, normal respiratory effort, no accessory muscle use Abdominal: Soft, non-tender, non-distended, no guarding, rebound, or rigidity Skin: Warm, dry Extremities: No edema or contractures Psychiatric: Alert and oriented to person, place and time, appropriate affect Neuro: CN II-XII grossly intact, Strength 5/5 in all 4 extremities, Speech intact, Sensation to light touch grossly intact throughout - Labs CBC & Chem 7: 03/07/19 06:38 03/06/19 07:03 Labs: Abnormal Lab Results - Last 24 Hours (Table) 03/06/19 03/07/19 Range/Units 07:03 06:38 RBC 3.71 L (3.80-5.40) m/uL Hgb 10.0 L (11.4-16.0) gm/dL Hct 32.9 L (34.0-46.0) % MCHC 30.5 L (31.0-37.0) g/dL Retic Count 3.3 H (0.5-2.0) % Carcinoembryonic Ag 8.4 H (0.0-4.9) ng/mL Assessment and Plan Plan: Pelvic mass, rectal vs cervical in origin -Oncology and general surgery recommendations appreciated -IR consulted for possible liver biopsy Abnormal LFTs, improved -Likely secondary to tumor burden -Monitor for now Lower back pain w/ radiation to buttocks, improved -MRI spine reviewed Elevated BP, likely undiagnosed hypertension -Initiate HCTZ and Norvasc Normocytic anemia -Likely secondary to GI bleeding in setting of malignancy -Monitor for now DVT prophylaxis -IPCDs Discussed with: Patient, Sister Anticipated discharge date: 2-[address]: Home A total of 35 minutes was spent on the care of this complex patient more than 50% of the time was spent in counseling and care coordination.
[2019-03-07] MEDS: HYDROCHLOROTHIAZIDE 50 MG TAB PO SCH (12:24)
[2019-03-07] MEDS: amLODIPine 10 MG TAB PO SCH (12:24)
--- NOTE | 2019-03-07 13:24 | P.CRDCN ---
History of Present Illness Consult date: 03/07/19 Reason for Consult (text): Irregular heartbeat, pauses History of present illness: This is a 58-year-old female with no significant past medical history. 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 Patient presented to the [facility] due to low back pain which have been gradually worsening over the last 2 weeks, loss of appetite and weight loss and generalized malaise. The patient underwent a CAT scan of the abdomen and pelvis with contrast that revealed large bilobed mass measuring up to 8.7 cm in the low pelvis, and hepatic metastases with largest being 8.7 cm with abnormal adenopathy within the abdomen and pelvis presumed metastatic. She subsequently underwent CAT scan of the chest that showed no intraperitoneal lung metastasis. Innumerable liver metastasis. MRI of the lumbar spine reveals degenerative changes. Patient is being followed by oncology and was seen today by [facility]. Concern for primary source is either cervical cancer or rectal cancer with metastatic disease to the liver with a scheduled liver biopsy on Friday. Patient denies any new complaints. She has had no chest pain or shortness of breath, no lower extremity edema. EKG reveals sinus mechanism with occasional PVCs. Patient is not currently on campus monitor. Laboratory studies: WBC 6.4, hemoglobin 10, platelet count 3 and 34. Retake count 3.3. Electrolytes within normal limits, BUN 20 and creatinine 0.99. Liver enzymes are elevated with total bilirubin 2.3, AST 370, ALT 132, a plain phosphatase 585. CEA 8.4. TSH 2.1. Stool for occult blood positive. Urinalysis revealed trace protein trace blood. Review Of Systems: Constitutional: No fever, no chills, no night sweats. Reports weight change. Reports weakness, fatigue. Lungs: No shortness of breath, cough, no sputum production. No wheezing. Cardiovascular: No chest pain, no lower extremity edema. No palpitations. No paroxysmal nocturnal dyspnea. No orthopnea. No lightheadedness or dizziness. No syncopal episodes. Abdominal: No abdominal pain. No nausea, vomiting. No diarrhea. No constipation. No bloody or tarry stools. Reports loss of appetite. Genitourinary: No dysuria, increased frequency, urgency. No urinary retention. Musculoskeletal: No myalgias. No muscle weakness, no gait dysfunction, no frequent falls. Reports back pain. No neck pain. Integumentary: No wounds, no lesions. No rash or pruritus. No unusual bruising. No change in hair or nails. Neurologic: No aphasia. No facial droop. No change in mentation. No head injury. No headache. No paralysis. No paresthesia. Psychiatric: No depression. No anxiety. No mood swings. Endocrine: No abnormal blood sugars. No weight change. No excessive sweating or thirst. No cold intolerance. No weight change. Gen: This is a 58-year-old female. She is resting bed and appears to be comfortable. She is complaining of right-sided low back discomfort. HEENT: Head is atraumatic, normocephalic. Pupils equal, round. Sclerae is anicteric. NECK: Supple. No JVD. No lymphadenopathy. No thyromegaly. LUNGS: Clear to auscultation. No wheezes or rhonchi. No intercostal retractions. HEART: Regular rate and rhythm. No murmur. ABDOMEN: Soft. Bowel sounds are present. No masses. No tenderness. EXTREMITIES: No pedal edema. No calf tenderness. NEUROLOGICAL: Patient is awake, alert and oriented x3. Cranial nerves 2 through 12 are grossly intact. Assessment: PVCs on EKG Hypertension, new diagnosis Pelvic mass, metastatic disease to the liver Plan: Obtain 2-D echocardiogram with Doppler study to assess cardiac structure and function. Continue Norvasc 10 mg daily, hydrochlorothiazide 50 g daily. Continue current management by primary and consultants regarding metastatic disease. Further recommendations to follow based upon clinical course. Thank you kindly for this consultation. Nurse practitioner note has been reviewed, I agree with documented findings and plan of care. Patient was seen and examined.. Past Medical History Past Medical History: No Reported History History of Any Multi-Drug Resistant Organisms: None Reported Past Surgical History: No Surgical Hx Reported Past Psychological History: Depression Smoking Status: Never smoker Past Alcohol Use History: Rare Past Drug Use History: None Reported - Past Family History Mother Family Medical History: Hypertension Additional Family Medical History / Comment(s): triple bypass years ago Father Family Medical History: CVA/TIA Medications and Allergies Home Medications Medication Instructions Recorded Confirmed Type Naproxen Sodium [Aleve] 1 tab-cap PO HS 03/05/19 03/05/19 History Allergies Allergy/AdvReac Type Severity Reaction Status Date / Time No Known Allergies Allergy Verified 03/05/19 22:16 Physical Exam Vitals: Vital Signs Temp Pulse Resp BP Pulse Ox 03/07/19 09:28 155/77 03/07/19 08:30 16 03/07/19 06:01 180/106 03/07/19 05:38 97.8 F 91 16 170/104 96 03/06/19 21:00 97.5 F L 81 16 166/83 98 03/06/19 15:07 16 Intake and Output 03/06/19 03/07/19 03/07/19 22:59 06:59 14:59 Intake Total 590 800 240 Balance 590 800 240 Intake: Intake, IV Titration 800 Amount Sodium Chloride 0.9% 1, 800 000 ml @ 100 mls/hr IV . Q10H [facility] Rx#:[id number] Oral 590 240 Other: Voiding Method Toilet Toilet Toilet # Voids 1 1 Results 03/07/19 06:38 03/06/19 07:03 CBC 03/07/19 Range/Units 06:38 WBC 6.4 (3.8-10.6) k/uL RBC 3.71 L (3.80-5.40) m/uL Hgb 10.0 L (11.4-16.0) gm/dL Hct 32.9 L (34.0-46.0) % Plt Count 334 (150-450) k/uL Current Medications Generic Name Dose Route Start Last Admin Trade Name Freq PRN Reason Stop Dose Admin Hydrocodone Bitart/Acetaminophen 1 each 03/05/19 16:51 03/07/19 08:57 [place] 5-325 PO 1 each Q4HR PRN Administration Moderate Pain Amlodipine Besylate 10 mg 03/07/19 11:15 03/07/19 12:24 Norvasc PO 10 mg DAILY R[facility]ARDO Administration Hydrochlorothiazide 50 mg 03/07/19 11:15 03/07/19 12:24 Hydrodiuril PO 50 mg DAILY RICARDO Administration Miscellaneous Information 1 each 03/06/19 12:25 Rx Info: Iv Contrast Was Given MISCELLANE 03/08/19 12:25 DAILY PRN Per Protocol Naloxone HCl 0.2 mg 03/05/19 16:51 Narcan IV Q2M PRN Opioid Reversal Ondansetron HCl 4 mg 03/05/19 16:51 Zofran IVP Q8HR PRN Nausea And Vomiting Pantoprazole Sodium 40 mg 03/06/19 09:00 03/07/19 08:58 Protonix IV 40 mg DAILY RICARDO Administration Intake and Output 03/06/19 03/07/19 03/07/19 22:59 06:59 14:59 Intake Total 590 800 240 Balance 590 800 240 Intake: Intake, IV Titration 800 Amount Sodium Chloride 0.9% 1, 800 000 ml @ 100 mls/hr IV . Q10H [facility] Rx#:[id number] Oral 590 240 Other: Voiding Method Toilet Toilet Toilet # Voids 1 1 03/07/19 06:38 03/06/19 07:03
[2019-03-07] MEDS: MORPHINE SULFATE 4 MG/ML SYRINGE IVP PRN (16:33)
[2019-03-08] MEDS: amLODIPine 10 MG TAB PO SCH (05:06)
[2019-03-08] MEDS: PANTOPRAZOLE 40 MG/10 ML VIAL IV SCH (07:23)
[2019-03-08] MEDS: HYDROcodone/APAP 5-325MG 1 EACH TAB PO PRN ×2 (07:24→22:04)
[2019-03-08] MEDS: HYDROCHLOROTHIAZIDE 50 MG TAB PO SCH (07:25)
[2019-03-08 07:36] LABS: HCT 32.7 % (34.0-46.0); HGB 10.2 gm/dL (11.4-16.0); Hypochromasia Moderate; MCHC 31.2 g/dL (31.0-37.0); MCV 89.9 fL (80.0-100.0); Platelet Count 363 k/uL (150-450); RBC 3.63 m/uL (3.80-5.40); RDW 15.8 % (11.5-15.5); WBC 6.1 k/uL (3.8-10.6)
[2019-03-08 07:46] LABS: Albumin 3.5 g/dL (3.5-5.0); Calcium 10.8 mg/dL (8.4-10.2); Potassium 4.2 mmol/L (3.5-5.1); Total Bilirubin 2.7 mg/dL (0.2-1.3); Total Protein 6.6 g/dL (6.3-8.2)
[2019-03-08] MEDS ORDERED: hydrALAZINE HCL 20 MG/ML 1 ML VIAL IVP STA (09:05)
[2019-03-08 10:58] LABS: Iron Saturation 4.82 (12.00-45.00)
--- NOTE | 2019-03-08 11:26 | US ---
EXAMINATION TYPE: US abdomen limited DATE OF EXAM: 03/08/2019 COMPARISON: NONE CLINICAL HISTORY: see IR consult for ordering information. Mets seen on CT, liver bx Heterogeneous liver with ill defined lesions seen. Procedure being moved to CT per Dr Garcia. IMPRESSION: Liver is diffusely heterogeneous with ill-defined hepatic lesions suggestive of malignan cy.
[2019-03-08] MEDS ORDERED: HYDROmorphone 0.5 MG/0.5 ML SYRINGE IVP STA (11:32)
--- NOTE | 2019-03-08 13:57 | CT ---
EXAMINATION TYPE: CT biopsy liver DATE OF EXAM: 03/08/2019 COMPARISON: 03/05/2019 HISTORY: Liver mass CT DLP: [id number] The procedure was explained to the patient. The risks, complications, benefits, and alternatives wer e discussed and any questions were answered. Informed consent was obtained. Patient was placed supi ne on the CT table and prepped and draped in the usual sterile fashion. All elements of maximal barrier and sterile technique utilized. Utilizing CT guidance, an 18 gauge core biopsy needle access into the right lobe of the liver was ac hieved and two18 gauge core samples were obtained. The patient was stable throughout the procedure a nd remained stable upon discharge. IMPRESSION: 1. Successful 18 gauge core biopsy of the liver.
--- NOTE | 2019-03-08 14:32 | P.PN ---
Subjective Progress Note Date: 03/08/19 Principal diagnosis: New pelvic and hepatic lesions Status Post Liver biopsy and echo She is tired and weak but overall improved since admission. Objective - Vital Signs Vital signs: Vital Signs Temp 97.6 F 03/08/19 05:00 Pulse 97 03/08/19 11:56 Resp 16 03/08/19 11:56 BP 121/76 03/08/19 11:56 Pulse Ox 96 03/08/19 11:56 Intake & Output 03/07/19 03/08/19 03/08/19 18:59 06:59 18:59 Intake Total 240 600 300 Balance 240 600 300 Intake: Intake, IV Titration 300 Amount Sodium Chloride 0.9% 1, 300 000 ml @ 100 mls/hr IV . Q10H [facility] Rx#:[id number] Oral 240 300 300 Other: Voiding Method Toilet Toilet Toilet # Voids 1 - Exam General: Alert and Oriented x3, No Acute Distress Head: Normocytic, Atraumatic Neck: Supple Mouth: No Lesions, No Thrush Eyes: Non-sclerotic No Palpable cervical, supraclavicular, axillary adenopathy Heart: Regular Rate, Regular Rhythm Lungs: Clear to Ausculations, No Wheeze, No Rhonchi, Diminishe bilateral lower lobes, No increased respiratory effort noted Abdomen: Soft, Non-Distended, Non-Tended, BSx4 Extremities: No Edema, Equal Strength Neurological: No Focal Defects: No sensory or motor deficits noted Psych: Calm and cooperative - Labs CBC & Chem 7: 03/08/19 06:50 03/08/19 06:50 Labs: Abnormal Lab Results - Last 24 Hours (Table) 03/06/19 03/08/19 03/08/19 Range/Units 07:03 06:50 06:50 RBC 3.63 L (3.80-5.40) m/uL Hgb 10.2 L (11.4-16.0) gm/dL Hct 32.7 L (34.0-46.0) % RDW 15.8 H (11.5-15.5) % Sodium 136 L (137-145) mmol/L Chloride 97 L (98-107) mmol/L BUN 20 H (7-17) mg/dL Calcium 10.8 H (8.4-10.2) mg/dL Iron 17 L (50-170) ug/dL Iron Saturation 4.82 L (12.00-45.00) Total Bilirubin 2.7 H (0.2-1.3) mg/dL AST 848 H (14-36) U/L ALT 246 H (9-52) U/L Alkaline Phosphatase 565 H (38-126) U/L Assessment and Plan Plan: Chest x-ray: report reviewed CT scan - abdomen: report reviewed CT scan - pelvis: report reviewed Assessment and Plan Pelvic mass in female - Noted large central pelvic mass, along with what appears to be metastatic disease in the liver. - Awaiting path from liver biopsy and determine if further examination of the rectum, as well as pelvic exam by gynecology. A Hepatic lesions concern for malignancy metastatic to liver - status Post Biopsy - Monitor liver enzymes for any evidence of rapidly progressing liver decompensation Anemia: - Component of blood loss anemia - GI and inflammation from probable malignancy - Reviewed iron studies Await Pathology for further recs
--- NOTE | 2019-03-08 16:04 | P.PN ---
Subjective Progress Note Date: 03/08/19 Patient is a 58-year-old female with no known PMH, who hasn't seen a physician for many years presented to the ED with multiple complaints. The patient reports that over the past several years, she has had intermittent lower back pain, which she attributed to DJD and attempted to manage conservatively. She states that her pain radiates to both her buttocks, as it has been previously for several years. She notes that 2 weeks ago however her pain somewhat worsened and she also developed worsening lethargy, weight loss, and anorexia. She made an appointment with a PCP but in light of her worsening lethargy, she decided to come to the ED. The patient underwent an extensive evaluation w/ CT abd/pelvis w/ contrast showing large bilobed mass measuring up to 8.7 cm in the low pelvis. Innumerable hepatic mets w/ largest being 8.7 cm with abnormal adenopathy within the abdomen and pelvis, presumed metastatic. The patient was admitted for further management of suspected malignancy. General surgery was consulted and recommended an PHYSICAL SCIENCE TEACHER consult in light of possible cervical origin of the mass. Dr. Barber from oncology evaluate the patient and recommended that she would likely benefit from a biopsy of the metastatic site from the liver. PHYSICAL SCIENCE TEACHER consult was thereby canceled and the patient underwent the IR guided liver biopsy on 03/08/2019. Patient was seen and examined at the bedside prior to her biopsy at 0800. The patient c/o ocassional R flank sharp pain, which resolves spontaneously. She denied abdominal pain, nausea, vomiting, chest pain, or SOB. Objective - Vital Signs Vital signs: Vital Signs Temp 97.6 F 03/08/19 05:00 Pulse 97 03/08/19 11:56 Resp 16 03/08/19 11:56 BP 121/76 03/08/19 11:56 Pulse Ox 96 03/08/19 11:56 Intake & Output 03/07/19 03/08/19 03/08/19 18:59 06:59 18:59 Intake Total 154 477 9529 Balance 942 068 5147 Intake: Intake, IV Titration 300 Amount Sodium Chloride 0.9% 1, 300 000 ml @ 100 mls/hr IV . Q10H [facility] Rx#:[id number] Oral 856 466 5872 Other: Voiding Method Toilet Toilet Toilet # Voids 1 3 - Exam General: Non-toxic, in no acute distress, appears stated age HEENT: NC/AT, anicteric sclerae, moist conjunctiva, no lid-lag, PERRLA Cardiovascular: S1/S2 wnl, no murmurs, rubs, or gallops Lungs: Clear to auscultation, normal respiratory effort, no accessory muscle use Abdominal: Soft, non-tender, non-distended, no guarding, rebound, or rigidity Skin: Warm, dry Extremities: No edema or contractures Psychiatric: Alert and oriented to person, place and time, appropriate affect Neuro: CN II-XII grossly intact, Strength 5/5 in all 4 extremities, Speech intact, Sensation to light touch grossly intact throughout - Labs CBC & Chem 7: 03/08/19 06:50 03/08/19 06:50 Labs: Abnormal Lab Results - Last 24 Hours (Table) 03/06/19 03/08/19 03/08/19 Range/Units 07:03 06:50 06:50 RBC 3.63 L (3.80-5.40) m/uL Hgb 10.2 L (11.4-16.0) gm/dL Hct 32.7 L (34.0-46.0) % RDW 15.8 H (11.5-15.5) % Sodium 136 L (137-145) mmol/L Chloride 97 L (98-107) mmol/L BUN 20 H (7-17) mg/dL Calcium 10.8 H (8.4-10.2) mg/dL Iron 17 L (50-170) ug/dL Iron Saturation 4.82 L (12.00-45.00) Total Bilirubin 2.7 H (0.2-1.3) mg/dL AST 848 H (14-36) U/L ALT 246 H (9-52) U/L Alkaline Phosphatase 565 H (38-126) U/L Assessment and Plan Plan: Pelvic mass, rectal vs cervical in origin, status post IR guided liver biopsy on 03/08/2019 -Oncology and general surgery recommendations appreciated Abnormal LFTs, worsening -Likely secondary to tumor burden -Monitor for now Lower back pain w/ radiation to buttocks, improved -MRI spine reviewed Elevated BP, likely undiagnosed hypertension -Continue with HCTZ and Norvasc Normocytic anemia -Likely secondary to GI bleeding in setting of malignancy -Monitor for now DVT prophylaxis -IPCDs Discussed with: Patient, Sister Anticipated discharge date: 1-[address]: Home A total of 35 minutes was spent on the care of this complex patient more than 50% of the time was spent in counseling and care coordination.
--- NOTE | 2019-03-08 16:27 | P.PN ---
Subjective Progress Note Date: 03/08/19 CHIEF COMPLAINT: Pelvic mass HISTORY OF PRESENT ILLNESS: Patient seen and examined this afternoon at the bedside with Dr. Caballero. Patient underwent liver biopsy today. She currently denies abdominal pain. Denies nausea or vomiting. W BC 6.1. Hemoglobin 10.2. Bilirubin 2.7. AST 848. ALT 246. PHYSICAL EXAM: VITAL SIGNS: Reviewed. GENERAL: Well-developed in no acute distress. HEENT: No sclera icterus. Extraocular movements grossly intact. Moist buccal mucosa. Head is atraumatic, normocephalic. ABDOMEN: Soft. Nondistended. Nontender. Positive bowel sounds. NEUROLOGIC: Alert and oriented. Cranial nerves II through XII grossly intact. ASSESSMENT: 1. Pelvic mass with hepatic lesions, concerning for malignancy 2. Transaminitis PLAN: Diet as tolerated. Await results of liver biopsy. Patient will likely require Mediport insertion. Case discussed with Kacey Ulrich oncology LIBRARY HISTORIAN. Patient will tentatively be scheduled for Mediport insertion on Friday. Nurse practitioner note has been reviewed by physician. Signing provider agrees with the documented findings, assessment, and plan of care. Objective - Vital Signs Vital signs: Vital Signs Temp 97.6 F 03/08/19 05:00 Pulse 97 03/08/19 11:56 Resp 16 03/08/19 11:56 BP 121/76 03/08/19 11:56 Pulse Ox 96 03/08/19 11:56 Intake & Output 03/07/19 03/08/19 03/08/19 18:59 06:59 18:59 Intake Total 035 069 9808 Balance 007 602 5408 Intake: Intake, IV Titration 300 Amount Sodium Chloride 0.9% 1, 300 000 ml @ 100 mls/hr IV . Q10H [facility] Rx#:[id number] Oral 776 383 9201 Other: Voiding Method Toilet Toilet Toilet # Voids 1 3 - Labs CBC & Chem 7: 03/08/19 06:50 03/08/19 06:50 Labs: Abnormal Lab Results - Last 24 Hours (Table) 03/06/19 03/08/19 03/08/19 Range/Units 07:03 06:50 06:50 RBC 3.63 L (3.80-5.40) m/uL Hgb 10.2 L (11.4-16.0) gm/dL Hct 32.7 L (34.0-46.0) % RDW 15.8 H (11.5-15.5) % Sodium 136 L (137-145) mmol/L Chloride 97 L (98-107) mmol/L BUN 20 H (7-17) mg/dL Calcium 10.8 H (8.4-10.2) mg/dL Iron 17 L (50-170) ug/dL Iron Saturation 4.82 L (12.00-45.00) Total Bilirubin 2.7 H (0.2-1.3) mg/dL AST 848 H (14-36) U/L ALT 246 H (9-52) U/L Alkaline Phosphatase 565 H (38-126) U/L
[2019-03-08] MEDS: MORPHINE SULFATE 4 MG/ML SYRINGE IVP PRN (18:00)
[2019-03-08] MEDS: ONDANSETRON 4 MG/2 ML VIAL IVP PRN (19:44)
[2019-03-08] MEDS: hydrALAZINE HCL 25 MG TAB PO SCH (22:05)
[2019-03-09] MEDS: HYDROcodone/APAP 5-325MG 1 EACH TAB PO PRN ×3 (05:55→20:44)
[2019-03-09 08:29] LABS: Anisocytosis Slight; HCT 31.2 % (34.0-46.0); Hypochromasia Moderate; MCH 28.5 pg (25.0-35.0); MCHC 32.1 g/dL (31.0-37.0); MCV 88.9 fL (80.0-100.0); Mean Platelet Volume 6.9; Platelet Count 366 k/uL (150-450); RBC 3.51 m/uL (3.80-5.40); RDW 16.1 % (11.5-15.5); WBC 6.9 k/uL (3.8-10.6)
[2019-03-09] MEDS: hydrALAZINE HCL 25 MG TAB PO SCH ×2 (09:35→20:44)
[2019-03-09] MEDS: PANTOPRAZOLE 40 MG TABLET PO SCH (09:35)
[2019-03-09] MEDS: amLODIPine 10 MG TAB PO SCH (09:35)
[2019-03-09] MEDS: HYDROCHLOROTHIAZIDE 50 MG TAB PO SCH (09:35)
[2019-03-09] MEDS ORDERED: LIDOCAINE 1% 20 ML VIAL (10MG/ML) FOR IV START INTRADERMA PRN (10:28)
[2019-03-09] MEDS ORDERED: MORPHINE SULFATE 2 MG/ML SYRINGE IV PRN (10:28)
[2019-03-09] MEDS ORDERED: DEXAMETHASONE SOD PHOSPHATE 10 MG/ML 1 ML VIAL IV ONE (10:28)
--- NOTE | 2019-03-09 13:52 | P.PN ---
Subjective Progress Note Date: 03/09/19 CHIEF COMPLAINT: Pelvic mass HISTORY OF PRESENT ILLNESS: Patient seen and examined at the bedside. Patient is s/p liver biopsy today. She currently denies abdominal pain. Denies nausea or vomiting. WBC 6.9. Hemoglobin 10.0. PHYSICAL EXAM: VITAL SIGNS: Reviewed. GENERAL: Well-developed in no acute distress. HEENT: No sclera icterus. Extraocular movements grossly intact. Moist buccal mucosa. Head is atraumatic, normocephalic. ABDOMEN: Soft. Nondistended. Nontender. Positive bowel sounds. NEUROLOGIC: Alert and oriented. Cranial nerves II through XII grossly intact. ASSESSMENT: 1. Pelvic mass with hepatic lesions, concerning for malignancy 2. Transaminitis PLAN: Diet as tolerated Await results of liver biopsy Patient scheduled for Mediport insertion tomorrow with Dr. Caballero. NPO after midnight. Nurse practitioner note has been reviewed by physician. Signing provider agrees with the documented findings, assessment, and plan of care. Objective - Vital Signs Vital signs: Vital Signs Temp 98.5 F 03/09/19 12:11 Pulse 97 03/09/19 12:11 Resp 18 03/09/19 12:11 BP 127/68 03/09/19 12:11 Pulse Ox 95 03/09/19 12:11 Intake & Output 03/08/19 03/09/19 03/09/19 18:59 06:59 18:59 Intake Total 1100 200 400 Balance 1100 200 400 Weight 101.605 kg Intake: Oral 1100 200 400 Other: Voiding Method Toilet Toilet Toilet # Voids 3 1 - Labs CBC & Chem 7: 03/09/19 07:50 03/08/19 06:50 Labs: Abnormal Lab Results - Last 24 Hours (Table) 03/09/19 Range/Units 07:50 RBC 3.51 L (3.80-5.40) m/uL Hgb 10.0 L (11.4-16.0) gm/dL Hct 31.2 L (34.0-46.0) % RDW 16.1 H (11.5-15.5) %
--- NOTE | 2019-03-09 14:16 | P.PN ---
Subjective Progress Note Date: 03/09/19 Principal diagnosis: New pelvic and hepatic lesions Status Post Liver biopsy and echo Awaiting Path, planning on Mediport on Friday Objective - Vital Signs Vital signs: Vital Signs Temp 98.5 F 03/09/19 12:11 Pulse 97 03/09/19 12:11 Resp 18 03/09/19 12:11 BP 127/68 03/09/19 12:11 Pulse Ox 95 03/09/19 12:11 Intake & Output 03/08/19 03/09/19 03/09/19 18:59 06:59 18:59 Intake Total 1100 200 400 Balance 1100 200 400 Weight 101.605 kg Intake: Oral 1100 200 400 Other: Voiding Method Toilet Toilet Toilet # Voids 3 1 - Exam General: Alert and Oriented x3, No Acute Distress Head: Normocytic, Atraumatic Neck: Supple Mouth: No Lesions, No Thrush Eyes: Non-sclerotic No Palpable cervical, supraclavicular, axillary adenopathy Heart: Regular Rate, Regular Rhythm Lungs: Clear to Ausculations, No Wheeze, No Rhonchi, Diminishe bilateral lower lobes, No increased respiratory effort noted Abdomen: Soft, Non-Distended, Non-Tended, BSx4 Extremities: No Edema, Equal Strength Neurological: No Focal Defects: No sensory or motor deficits noted Psych: Calm and cooperative - Labs CBC & Chem 7: 03/09/19 07:50 03/10/19 08:36 Labs: Abnormal Lab Results - Last 24 Hours (Table) 03/09/19 Range/Units 07:50 RBC 3.51 L (3.80-5.40) m/uL Hgb 10.0 L (11.4-16.0) gm/dL Hct 31.2 L (34.0-46.0) % RDW 16.1 H (11.5-15.5) % Assessment and Plan Plan: Chest x-ray: report reviewed CT scan - abdomen: report reviewed CT scan - pelvis: report reviewed Assessment and Plan Pelvic mass in female - Noted large central pelvic mass, along with what appears to be metastatic disease in the liver. - Awaiting path from liver biopsy and determine if further examination of the rectum, as well as pelvic exam by gynecology. A Hepatic lesions concern for malignancy metastatic to liver - status Post Biopsy - Monitor liver enzymes for any evidence of rapidly progressing liver decompensation Anemia: - Component of blood loss anemia - GI and inflammation from probable malignancy - Reviewed iron studies Await Pathology for further recs Mediport Friday. Follow-up in office 1-[address] Barber
[2019-03-09] MEDS: LACTATED RINGERS 1,000 ML IV SCH (14:35)
--- NOTE | 2019-03-09 16:48 | P.PN ---
Subjective Progress Note Date: 03/09/19 Principal diagnosis: Right flank pain Patient was seen and examined. No acute events overnight. Patient reports right flank pain somewhat controlled with current morphine. Patient denies any chest pain, shortness of breath or palpitations. No nausea or vomiting. No fever or chills. Objective - Vital Signs Vital signs: Vital Signs Temp 98.5 F 03/09/19 12:11 Pulse 97 03/09/19 12:11 Resp 18 03/09/19 16:00 BP 127/68 03/09/19 12:11 Pulse Ox 95 03/09/19 12:11 Intake & Output 03/08/19 03/09/19 03/09/19 18:59 06:59 18:59 Intake Total 1100 200 970 Balance 1100 200 970 Weight 101.605 kg Intake: Intake, IV Titration 120 Amount Lactated Ringers 1,000 ml 120 @ 20 mls/hr IV .Q24H [facility] Rx#:[id number] Oral 1100 200 850 Other: Voiding Method Toilet Toilet Toilet # Voids 3 1 2 - Exam General: [non toxic], [no distress], [appears at stated age] Derm: [warm], [dry] Head: [atraumatic], [normocephalic], [symmetric] Eyes: [EOMI], [no lid lag], [anicteric sclera] Mouth: [no lip lesion], [mucus membranes moist] Cardiovascular: [S1S2 reg], [no murmur], [positive posterior tibial pulse bilateral], Lungs: [CTA bilateral], [no rhonchi, no rales] , [no accessory muscle use] Abdominal: [soft], [distended, nontender to palpation], [no guarding], [no appreciable organomegaly] Ext: [no gross muscle atrophy], [no edema], [no contractures], [no CVA tenderness] Neuro: [no focal neuro deficits] Psych: [Alert], [oriented], [appropriate affect] - Labs CBC & Chem 7: 03/09/19 07:50 03/08/19 06:50 Labs: Abnormal Lab Results - Last 24 Hours (Table) 03/09/19 Range/Units 07:50 RBC 3.51 L (3.80-5.40) m/uL Hgb 10.0 L (11.4-16.0) gm/dL Hct 31.2 L (34.0-46.0) % RDW 16.1 H (11.5-15.5) % Assessment and Plan Assessment: Pelvic mass, rectal versus cervical in origin, status post IR guided liver biopsy on 03/08/2019 Transaminitis Elevated BP Normocytic anemia Plans: Plans for MediPort tomorrow. Discussed with JIMENEZ Ulrich, patient should be able to be discharged after procedure. Follow-up pathology results. Follow oncology recommendations. Likely due to tumor burden. Plans: CMP tomorrow morning. BP 127/68. Plans: Continue amlodipine, hydralazine, hydrochlorothiazide. Monitor vitals, adjust medications as necessary. Hemoglobin 10.0, normocytic, stable. Iron studies show iron deficiency. Plans: CBC tomorrow morning.
[2019-03-09] MEDS: MORPHINE SULFATE 4 MG/ML SYRINGE IVP PRN (17:03)
[2019-03-09] MEDS: ONDANSETRON 4 MG/2 ML VIAL IVP PRN (17:04)
[2019-03-10] MEDS: MORPHINE SULFATE 4 MG/ML SYRINGE IVP PRN (03:28)
--- NOTE | 2019-03-10 09:17 | ECHOF ---
Referral Reason:PVC MEASUREMENTS -------- HEIGHT: 175.3 cm WEIGHT: 101.6 kg BP: IVSd: 2.0 cm (0.6 - 1.1) LVIDd: 3.7 cm (3.9 - 5.3) LVPWd: 1.3 cm (0.6 - 1.1) IVSs: 1.6 cm LVIDs: 2.4 cm LVPWs: 1.7 cm LAESV Index (A-L): 37.67 ml/m IVSd: 3.4 cm (0.6 - 1.1) Ao Diam: 3.4 cm (2.0 - 3.7) AV Cusp: 1.9 cm (1.5 - 2.6) LA Diam: 2.6 cm (2.7 - 3.8) MV EXCURSION: 15.271 mm (> 18.000) MV EF SLOPE: 63 mm/s (70 - 150) EPSS: 0.4 cm MV E Dagoberto: 0.92 m/s MV DecT: 279 ms MV A Dagoberto: 1.21 m/s MV E/A Ratio: 0.76 AV maxP.71 mmHg AV meanP.95 mmHg RAP: 5.00 mmHg RVSP: 37.35 mmHg FINDINGS -------- Resting tachycardia (HR>100bpm). This was a technically good study. The cavity size is decreased. There is severe concentric left ventricular hypertrophy. Overall le ft ventricular systolic function is normal with, an EF between 60 - 65 %. LVOT Obstruction with a m ax gradient of 51 mmHg The right ventricle is normal in size. LA is moderately dilated 34-39 ml/m2 The right atrial size is normal. The aortic valve is trileaflet and appears structurally normal. Peak/mean gradient across the Aorti c Valve is 22.71mmHg / 14.95mmHg. The mitral valve leaflets are mildly thickened. There is trace mitral regurgitation. Mild tricuspid regurgitation present. There is mild pulmonary hypertension. The right ventricular systolic pressure, as measured by Doppler, is 37.35mmHg. There is no pulmonic regurgitation present. The aortic root size is normal. Normal inferior vena cava with normal inspiratory collapse consistent with estimated right atrial pre ssure of 5 mmHg. There is no pericardial effusion. CONCLUSIONS -------- 1. Resting tachycardia (HR>100bpm). 2. This was a technically good study. 3. The cavity size is decreased. 4. There is severe concentric left ventricular hypertrophy. 5. Overall left ventricular systolic function is normal with, an EF between 60 - 65 %. 6. LVOT Obstruction with a max gradient of 51 mmHg 7. The right ventricle is normal in size. 8. LA is moderately dilated 34-39 ml/m2 9. The right atrial size is normal. 10. The aortic valve is trileaflet and appears structurally normal. 11. Peak/mean gradient across the Aortic Valve is 22.71mmHg / 14.95mmHg. 12. The mitral valve leaflets are mildly thickened. 13. There is trace mitral regurgitation. 14. Mild tricuspid regurgitation present. 15. There is mild pulmonary hypertension. 16. The right ventricular systolic pressure, as measured by Doppler, is 37.35mmHg. 17. There is no pulmonic regurgitation present. 18. The aortic root size is normal. 19. Normal inferior vena cava with normal inspiratory collapse consistent with estimated right atrial pressure of 5 mmHg. 20. There is no pericardial effusion. APPLIED BEHAVIOR SCIENCE SPECIALIST: Deb Eason RDCS
[2019-03-10 09:31] LABS: Albumin 3.6 g/dL (3.5-5.0); Calcium 11.1 mg/dL (8.4-10.2); Potassium 4.6 mmol/L (3.5-5.1); Total Bilirubin 2.7 mg/dL (0.2-1.3); Total Protein 6.9 g/dL (6.3-8.2)
[2019-03-10] MEDS: HYDROCHLOROTHIAZIDE 50 MG TAB PO SCH (10:39)
[2019-03-10] MEDS: PANTOPRAZOLE 40 MG TABLET PO SCH (10:39)
[2019-03-10] MEDS: amLODIPine 10 MG TAB PO SCH (10:39)
[2019-03-10] MEDS: hydrALAZINE HCL 25 MG TAB PO SCH ×2 (10:39→20:20)
--- NOTE | 2019-03-10 12:00 | P.DS ---
Providers Date of admission: 03/05/19 16:52 Expected date of discharge: 03/10/19 Attending physician: Luda Nugent MD Consults: 03/05/19 16:51 Consult Physician Stat Consulting Provider: John Caballero Consult Reason/Comments: rectal mass, mets Do you want consulting provider notified?: Yes Consult Physician Stat Consulting Provider: James Barber Consult Reason/Comments: Rectal mass, mets Do you want consulting provider notified?: Yes 03/05/19 18:13 Consult Physician Stat Consulting Provider: Kasi Blanco Consult Reason/Comments: Lower back pain, rad to buttocks Do you want consulting provider notified?: Yes 03/06/19 12:56 Consult Physician Routine Consulting Provider: Quoc Tarango Consult Reason/Comments: Irregular heartbeat, with pauses. Do you want consulting provider notified?: Yes Primary care physician: Stated None Hospital Course: Patient is a 58-year-old female with no known PMH, who hasn't seen a physician for many years presented to the ED with multiple complaints. The patient reports that over the past several years, she has had intermittent lower back pain, which she attributed to DJD and attempted to manage conservatively. She states that her pain radiates to both her buttocks, as it has been previously for several years. She notes that 2 weeks ago however her pain somewhat worsened and she also developed worsening lethargy, weight loss, and anorexia. She made an appointment with a PCP but in light of her worsening lethargy, she decided to come to the ED. The patient underwent an extensive evaluation w/ CT abd/pelvis w/ contrast showing large bilobed mass measuring up to 8.7 cm in the low pelvis. Innumerable hepatic mets w/ largest being 8.7 cm with abnormal adenopathy within the abdomen and pelvis, presumed metastatic. The patient was admitted for further management of suspected malignancy. General surgery was consulted and recommended an HSE SPECIALIST consult in light of possible cervical origin of the mass. Dr. Barber from oncology evaluate the patient and recommended that she would likely benefit from a biopsy of the metastatic site from the liver. HSE SPECIALIST consult was thereby canceled and the patient underwent the IR guided liver biopsy on 03/08/2019. General surgery was consulted and patient was scheduled for MediPort insertion on 03/10/2019. Patient seen and examined. No acute events overnight. Patient and family extremely frustrated regarding OR time and not having pathology results or discussing with oncology. She denies any chest pain, shortness of breath or palpitations. No nausea or vomiting. No fever or chills. States that she is extremely thirsty. General: [non toxic], [no distress], [appears at stated age] Derm: [warm], [dry] Head: [atraumatic], [normocephalic], [symmetric] Cardiovascular: [S1S2 reg], [no murmur], [positive DP pulse bilateral] Lungs: [CTA bilateral], [no rhonchi, no rales] , [no accessory muscle use] Abdominal: [soft], [distended, nontender to palpation], [no guarding], [no appreciable organomegaly] Ext: [no gross muscle atrophy], [no edema], [no contractures], [no CVA tenderness] Psych: [Alert], [oriented], [appropriate affect] Pelvic mass, rectal versus cervical in origin, status post IR guided liver biopsy on 03/08/2019 Diastolic CHF, chronic Transaminitis Elevated BP Normocytic anemia Plans: Plans for MediPort today. Discussed with JIMENEZ Ulrich, patient should be able to be discharged after procedure, to follow Dr. Barber in the outpatient setting. Follow-up pathology results. Echocardiogram shows severe concentric LVH. Plans: Need to control BP better. Follow cardiology in the outpatient setting. Likely due to tumor burden. Plans: CMP 3 days from discharge. BP 120/69. Plans: Continue amlodipine, hydralazine, hydrochlorothiazide. Monitor vitals, adjust medications as necessary. Hemoglobin 10.0, normocytic, stable. Iron studies show iron deficiency. Plans: CBC 3 days from discharge. Patient scheduled for Mediport insertion today. Discussed with JIMENEZ Willard, should be able to be discharged later this evening. Will need adequate follow-up with oncology in the outpatient setting. Pertinent Studies: Chest x-ray, lumbar spine x-ray, CT abdomen and pelvis, chest CT, MRI L spine, abdominal ultrasound, liver biopsy CT, echocardiogram Procedures: Liver mass biopsy Patient Condition at Discharge: Stable Plan - Discharge Summary Discharge Rx Participant: Yes New Discharge Prescriptions: New hydrALAZINE HCL [Apresoline] 25 mg PO BID #60 tab Hydrochlorothiazide [Hydrodiuril] 50 mg PO DAILY #30 tab HYDROcodone/APAP 10-325MG [Butler 10-325] 1 tab PO Q4HR PRN 3 Days #18 tab PRN Reason: Severe Pain amLODIPine [Norvasc] 10 mg PO DAILY #30 tab Discontinued Naproxen Sodium [Aleve] 1 tab-cap PO HS Discharge Medication List HYDROcodone/APAP 10-325MG [Butler 10-325] 1 tab PO Q4HR PRN 3 Days #18 tab 03/10/19 [Rx] Hydrochlorothiazide [Hydrodiuril] 50 mg PO DAILY #30 tab 03/10/19 [Rx] amLODIPine [Norvasc] 10 mg PO DAILY #30 tab 03/10/19 [Rx] hydrALAZINE HCL [Apresoline] 25 mg PO BID #60 tab 03/10/19 [Rx] Follow up Appointment(s)/Referral(s): None,Stated [Primary Care Provider] - 1-2 days John Caballero MD [STAFF PHYSICIAN] - 1 Week James Barber MD [STAFF PHYSICIAN] - 1 Week Slava Maher MD [STAFF PHYSICIAN] - 1 Week Ambulatory/Diagnostic Orders: Comprehensive Metabolic Panel [LAB.AMB] Time Frame: 3 Days, Location: None Selected Activity/Diet/Wound Care/Special Instructions: Diet: Heart healthy Follow-up PCP within 1-2 days of discharge. Follow-up with oncology within 1 week of discharge. Follow-up the pathology results with oncology. Follow-up with cardiology within 1 week of discharge. Follow-up with general surgery within 1 week of discharge. Please take all medications as advised. Discharge Disposition: HOME SELF-CARE
[2019-03-10] MEDS ORDERED: LACTATED RINGERS 1,000 ML IV ONE (12:18)
[2019-03-10] MEDS ORDERED: ONDANSETRON 4 MG/2 ML VIAL IVP ONE (12:26)
[2019-03-10] MEDS ORDERED: DEXAMETHASONE SOD PHOS (MDV) 100 MG/10 ML VIAL IVP ONE (12:27)
[2019-03-10] MEDS ORDERED: MIDAZOLAM 2 MG/2 ML VIAL ONE (13:36)
[2019-03-10] MEDS ORDERED: PROPOFOL 10 MG/ML 20 ML VIAL IV ONE (13:36)
[2019-03-10] MEDS ORDERED: KETAMINE 10 MG/ML 20 ML VIAL ONE (13:36)
[2019-03-10] MEDS ORDERED: fentaNYL (PF) 50 MCG/ML 2 ML AMP ONE (13:36)
[2019-03-10] MEDS ORDERED: SODIUM CHLORIDE 0.9% 50 ML with ceFAZolin 2,000 MG IV ONE ×2 (13:41)
[2019-03-10] MEDS ORDERED: LIDOCAINE 0.5%-EPI 1:200,000 50 ML VIAL SQ ONE (13:55)
[2019-03-10] MEDS ORDERED: HEPARIN SODIUM,PORCINE 100 UNIT/ML 5 ML VIAL IV ONE (13:55)
[2019-03-10] MEDS ORDERED: IOPAMIDOL-300 50ML BTL IV ONE (13:55)
--- NOTE | 2019-03-10 14:48 | XR ---
EXAMINATION TYPE: XR chest 1V portable DATE OF EXAM: 03/10/2019 COMPARISON: 03/05/2019 HISTORY: Right-sided Mediport insertion TECHNIQUE: Single frontal view of the chest is obtained. FINDINGS: Slight right hemidiaphragm elevation is seen as seen on the prior. No new focal consolidat ion, pleural effusion or pneumothorax. Mediport has been inserted terminating in the proximal superio r vena cava. IMPRESSION: New right-sided Mediport terminating in the proximal superior vena cava.
--- NOTE | 2019-03-10 15:30 | P.OP ---
Date of Procedure: 03/10/19 Preoperative Diagnosis: Metastatic adenocarcinoma Postoperative Diagnosis: Metastatic adenocarcinoma Procedure(s) Performed: Right subclavian Port-A-Cath insertion Anesthesia: MAC Surgeon: John Caballero Estimated Blood Loss (ml): 5 Pathology: none sent Condition: stable Disposition: PACU Description of Procedure: MPROCEDURE: The patient was placed on the operating table in the supine position. She received MAC anesthetic. The [right] chest was prepped and draped in the usual sterile fashion. The skin underneath the right clavicle was anesthetized with 1% Xylocaine and using Seldinger technique, the right subclavian vein was cannulized. The wire was placed through the needle and positioned under fluoroscopy. Next, the needle was removed and the port site was anesthetized with 1% Xylocaine. Skin was incised with #15 blade and port pocket was made using blunt and sharp dissection. Following this the catheter was attached to the sport and the port was flushed. The port was positioned into the pocket site and was secured with 3-0 Vicryl suture. The catheter was then brought out through the wire site and then the dilator sheath was placed over the wire and the dilator and the wire were removed. The catheter was placed through the sheath and the sheath was removed. The port was flushed with hep-lock solution. Skin was closed with interrupted 3-0 Vicryl sutures. Steri-Strips were applied. The patient tolerated the procedure well. The patient was sent to recovery room for chest x-ray after the procedure.
--- NOTE | 2019-03-10 17:33 | P.PN ---
Subjective Progress Note Date: 03/10/19 Principal diagnosis: New pelvic and hepatic lesions Poorly differentiated Neuroendocrine will discuss with patient and family tomorrow with Dr. Barber. Objective - Vital Signs Vital signs: Vital Signs Temp 97.2 F L 03/10/19 14:16 Pulse 95 03/10/19 14:45 Resp 18 03/10/19 14:45 BP 141/69 03/10/19 14:45 Pulse Ox 96 03/10/19 14:45 Intake & Output 03/09/19 03/10/19 03/10/19 18:59 06:59 18:59 Intake Total 1420 250 950 Output Total 2 Balance 1420 250 948 Weight 101.605 kg Intake: IV 350 Intake, IV Titration 120 Amount Lactated Ringers 1,000 ml 120 @ 20 mls/hr IV .Q24H RICARDO Rx#:[id number] Oral 1300 250 600 Output: Estimated Blood Loss 2 Other: Voiding Method Toilet Toilet Toilet # Voids 2 1 - Exam General: Alert and Oriented x3, No Acute Distress Head: Normocytic, Atraumatic Neck: Supple Mouth: No Lesions, No Thrush Eyes: Non-sclerotic No Palpable cervical, supraclavicular, axillary adenopathy Heart: Regular Rate, Regular Rhythm Lungs: Clear to Ausculations, No Wheeze, No Rhonchi, Diminishe bilateral lower lobes, No increased respiratory effort noted Abdomen: Soft, Non-Distended, Non-Tended, BSx4 Extremities: No Edema, Equal Strength Neurological: No Focal Defects: No sensory or motor deficits noted Psych: Calm and cooperative - Labs CBC & Chem 7: 03/09/19 07:50 03/10/19 08:36 Labs: Abnormal Lab Results - Last 24 Hours (Table) 03/08/19 03/10/19 Range/Units 06:50 08:36 Sodium 135 L (137-145) mmol/L Chloride 94 L (98-107) mmol/L Carbon Dioxide 31 H (22-30) mmol/L BUN 25 H (7-17) mg/dL Calcium 11.1 H (8.4-10.2) mg/dL Total Bilirubin 2.7 H (0.2-1.3) mg/dL AST 1084 H (14-36) U/L ALT 347 H (9-52) U/L Alkaline Phosphatase 623 H (38-126) U/L CA 125 Antigen 57.5 H (0.0-30.1) U/mL Assessment and Plan Plan: Chest x-ray: report reviewed CT scan - abdomen: report reviewed CT scan - pelvis: report reviewed Assessment and Plan Pelvic mass in female - Noted large central pelvic mass, along with what appears to be metastatic disease in the liver. - Neuroendocrine Carcinoma poorly differentiated - Will discuss in am with patient path resulted later in afternoon Hepatic lesions concern for malignancy metastatic to liver - status Post Biopsy - Monitor liver enzymes for any evidence of rapidly progressing liver decompensation Anemia: - Component of blood loss anemia - GI and inflammation from probable malignancy - Reviewed iron studies Debility and inability to walk: - Discussed with primary team will have PT/OT evaluate, for safety at discharge, MRI Spine and Brain as outpatient and plan for homecare with PT/OT Await Pathology for further recs Mediport Friday. Will need MRI of Brain and Thoracic and Lumbar Spine Discussed with primary team Follow-up in office 1-[address] Barber
[2019-03-10] MEDS: HYDROcodone/APAP 5-325MG 1 EACH TAB PO PRN ×2 (18:07→20:56)
[2019-03-10] MEDS: LACTATED RINGERS 1,000 ML IV SCH (20:21)
[2019-03-11] MEDS: HYDROcodone/APAP 5-325MG 1 EACH TAB PO PRN ×3 (01:37→19:21)
--- NOTE | 2019-03-11 06:39 | FL ---
EXAMINATION TYPE: FL guided central line placemt DATE OF EXAM: 03/10/2019 CLINICAL HISTORY: Port-A-Cath insertion. TECHNIQUE: Fluoroscopy. COMPARISON: None. FINDINGS: Fluoroscopic guidance was provided during Port-A-Cath insertion procedure performed by Dr. Caballero. A total of 3 seconds of fluoroscopic time was utilized during the procedure and single sp ot fluoroscopic intraoperative image is acquired. Single image acquired shows tip placement at level of SVC. IMPRESSION: As Above.
[2019-03-11] MEDS ORDERED: RX INFO: IV CONTRAST WAS GIVEN 1 EACH MISC MISCELLANE PRN (08:59)
--- NOTE | 2019-03-11 10:11 | CT ---
EXAMINATION TYPE: CT brain w con DATE OF EXAM: 03/11/2019 COMPARISON: None HISTORY: rule out brain mets CT DLP: 1109 mGycm Automated exposure control for dose reduction was used. CONTRAST: CT scan of the head is performed with IV Contrast, patient injected with 100 mL of Isovue 300. FINDINGS: There is a heterogeneous enhancing mass along the right parasellar region. Measures 2 x 2 centimeters . MRI recommended. Ventricular system midline. No obvious acute intracranial hemorrhage or mass effect. Low-attenuation the white matter nonspecific but most typical remote microvascular ischemia. Calvarium is intact. Hyp odensity within the left basal ganglia suggestive of remote lacunar infarct. Additional area of low a ttenuation in the left basal ganglia and 16 suggestive of an area of indeterminate ischemia. IMPRESSION: 1. There is a 2 x 2 centimeter enhancing mass in the right parasellar region with osseous involvement . MRI recommended to assess for malignancy. 2. There is a ill-defined less than 1 cm hypodense area within the left basal ganglia. May represent an area of age-indeterminate ischemia. Correlate clinically.
[2019-03-11] MEDS: hydrALAZINE HCL 25 MG TAB PO SCH ×2 (10:13→22:03)
[2019-03-11] MEDS: amLODIPine 10 MG TAB PO SCH (10:15)
[2019-03-11] MEDS: HYDROCHLOROTHIAZIDE 50 MG TAB PO SCH (10:16)
[2019-03-11] MEDS: ONDANSETRON 4 MG/2 ML VIAL IVP PRN (10:17)
--- NOTE | 2019-03-11 11:56 | P.PN ---
Subjective Progress Note Date: 03/11/19 Principal diagnosis: New pelvic and hepatic lesions [place] sisters at bedside. Patient pathology revealed poorly differntiated neuroendocrine cancer, CT brain was ordered this am and revealed two lesions in brain. I have consulted radaition oncology, and dexamethasone was intiated. Objective - Vital Signs Vital signs: Vital Signs Temp 97.6 F 03/11/19 05:00 Pulse 95 03/11/19 05:00 Resp 18 03/11/19 05:00 BP 159/75 03/11/19 05:00 Pulse Ox 93 L 03/11/19 05:00 Intake & Output 03/10/19 03/11/19 03/11/19 18:59 06:59 18:59 Intake Total 950 1200 Output Total 2 Balance 948 1200 Intake: IV 350 Oral 600 1200 Output: Estimated Blood Loss 2 Other: Voiding Method Toilet Toilet # Voids 2 - Exam General: Alert and Oriented x3, No Acute Distress Head: Normocytic, Atraumatic Neck: Supple Mouth: No Lesions, No Thrush Eyes: Non-sclerotic No Palpable cervical, supraclavicular, axillary adenopathy Heart: Regular Rate, Regular Rhythm Lungs: Clear to Ausculations, No Wheeze, No Rhonchi, Diminishe bilateral lower lobes, No increased respiratory effort noted Abdomen: Soft, Non-Distended, Non-Tended, BSx4 Extremities: No Edema, Equal Strength Neurological: No Focal Defects: No sensory or motor deficits noted Psych: Calm and cooperative - Labs CBC & Chem 7: 03/09/19 07:50 03/10/19 08:36 Assessment and Plan Plan: Chest x-ray: report reviewed CT scan - abdomen: report reviewed CT scan - pelvis: report reviewed Assessment and Plan Pelvic mass in female - Noted large central pelvic mass, along with what appears to be metastatic disease in the liver. 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: - Radiation oncology evaluation - Immediate start of a carboplatin DESKTOP PUBLISHING ASSOCIATE 16 chemotherapy regimen and we'll likely add a biphosphonate or bone strengthener if metastatic disease to the bone is confirmed on nuclear bone scan - Decadron and PPI at this time - MRI of the brain when able Hepatic lesions concern for malignancy metastatic to liver - status Post Biopsy - Monitor liver enzymes for any evidence of rapidly progressing liver decompensation Anemia: - Component of blood loss anemia - GI and inflammation from probable malignancy - Reviewed iron studies Debility and inability to walk: - Discussed with primary team will have PT/OT evaluate, for safety at discharge, MRI Spine and Brain as outpatient and plan for homecare with PT/OT Plan : - Long discussion with patient and sisters today. We reviewed pathology and overall prognosis of her metastatic cancer diagnosis radiation oncology will evaluate Cher. She will likely require whole brain radiation due to the fast growth of the type of cancer. As well as immediate chemotherapy when November. Since we have been unable to utilize MRI she may benefit from initiation of chem otherapy and in her weakened state and inability to care for herself at home at this point I will discuss with Dr. Barber the possibility of admission and inpatient rehab for the ability to receive radiation therapy during rehabilitation if this is considered after a first cycle of carboplatin DESKTOP PUBLISHING ASSOCIATE 16 en this will give us approximately 2 or 3 weeks to increase her stamina and strength. Patient and family also expressed the difficulty with transportation. Case management is following and will also have social work follow Patient and sisters understand her overall disease is considered not curative. Our goals of treatment will be palliative only for improved quality of life and possible increased quantity of life. Greater than 30 minutes spent [id number] with the patient and family emotional support was given and greater than 50% of this time was counseling and coordinating care. All of their questions were answered to the best of my ability and understanding her stated. On the CAT scan there was also question of metastatic disease to the bone so a bone scan has also been ordered. I have discussed this in full with case management primary care team radiation oncology, Dr Winn and todays nurse Physician Attestation: I have performed the full physical examination and reviewed the full history of this patient, as well as pertinent findings. I have created the compled impression and recommendations. I agree with the above dictation by JOMAR Diggs. This dictation has been written as a scribe.
[2019-03-11] MEDS: LACTATED RINGERS 1,000 ML IV SCH (12:06)
[2019-03-11] MEDS: DEXAMETHASONE SOD PHOSPHATE 4 MG/ML 1 ML VIAL IV SCH ×3 (12:41→23:56)
[2019-03-11] MEDS: PANTOPRAZOLE 40 MG TABLET PO SCH ×2 (12:42→12:43)
--- NOTE | 2019-03-11 13:09 | P.PN ---
Subjective Progress Note Date: 03/11/19 Principal diagnosis: Metastatic cancer Patient was seen and examined. No acute events overnight. Patient reports generalized itchiness is not relieved with motion. Patient also complains of constipation, last bowel movement 2 days ago. She denies any chest pain, shortness of breath or palpitations. No changes in urination. Tolerating diet well. CT brain shows metastatic lesions to the brain. Objective - Vital Signs Vital signs: Vital Signs Temp 97.6 F 03/11/19 05:00 Pulse 95 03/11/19 05:00 Resp 18 03/11/19 05:00 BP 159/75 03/11/19 05:00 Pulse Ox 93 L 03/11/19 05:00 Intake & Output 03/10/19 03/11/19 03/11/19 18:59 06:59 18:59 Intake Total 950 1200 Output Total 2 Balance 948 1200 Intake: IV 350 Oral 600 1200 Output: Estimated Blood Loss 2 Other: Voiding Method Toilet Toilet # Voids 2 - Exam General: [non toxic], [no distress], [appears at stated age] Derm: [warm], [dry] Head: [atraumatic], [normocephalic], [symmetric] Cardiovascular: [S1S2 reg], [no murmur], [positive DP pulse bilateral] Lungs: [CTA bilateral], [no rhonchi, no rales] , [no accessory muscle use] Abdominal: [soft], [distended, nontender to palpation], [no guarding], [no appreciable organomegaly] Ext: [no gross muscle atrophy], [no edema], [no contractures], [no CVA tenderness] Psych: [Alert], [oriented], [appropriate affect] - Labs CBC & Chem 7: 03/09/19 07:50 03/10/19 08:36 Assessment and Plan Assessment: Pelvic mass, rectal versus cervical in origin, status post IR guided liver b iopsy on 03/08/2019 Diastolic CHF, chronic Transaminitis Elevated BP Normocytic anemia Plans: Plans for radiation oncology to evaluate patient due to metastatic disease to the brain. Follow bone scan. Will follow oncology recommendations regarding chemotherapy and radiation. Echocardiogram shows severe concentric LVH. Plans: Need to control BP better. Follow cardiology in the outpatient setting. Likely due to tumor burden. Plans: CMP 3 days from discharge. BP 159/75. Plans: Continue amlodipine, hydralazine, hydrochlorothiazide. Monitor vitals, adjust medications as necessary. Hemoglobin 10.0, normocytic, stable. Iron studies show iron deficiency. Plans: CBC 3 days from discharge. Found to have metastatic lesions to the brain. Radiation oncology consulted. Bone scan pending. Patient reports will have difficulty with transportation for chemotherapy and radiation. Last dialysis social worker evaluate. Likely DC in 1-2 days.
--- NOTE | 2019-03-11 15:16 | P.PN ---
Subjective Progress Note Date: 03/11/19 CHIEF COMPLAINT: Pelvic mass HISTORY OF PRESENT ILLNESS: Patient seen and examined at the bedside. Patient is status post right subclavian Port-A-Cath insertion. She reports minimal pain to port site. Pathology positive for poorly differentiated neuroendocrine carcinoma. CT of the brain was completed this morning revealing 2 lesions. PHYSICAL EXAM: VITAL SIGNS: Reviewed. GENERAL: Well-developed in no acute distress. HEENT: No sclera icterus. Extraocular movements grossly intact. Moist buccal mucosa. Head is atraumatic, normocephalic. CHEST: Port insertion site clean dry intact without drainage or erythema. ABDOMEN: Soft. Nondistended. Nontender. Positive bowel sounds. NEUROLOGIC: Alert and oriented. Cranial nerves II through XII grossly intact. ASSESSMENT: 1. Pelvic mass with hepatic lesions, pathology positive for poorly differentiated neuroendocrine carcinoma 2. Transaminitis 3. S/P port insertion PLAN: Diet as tolerated Further treatment of carcinoma per oncology and radiation department We will sign off. Please re-consult if needed. Nurse practitioner note has been reviewed by physician. Signing provider agrees with the documented findings, assessment, and plan of care. Objective - Vital Signs Vital signs: Vital Signs Temp 97.6 F 03/11/19 05:00 Pulse 95 03/11/19 05:00 Resp 18 03/11/19 09:10 BP 159/75 03/11/19 05:00 Pulse Ox 93 L 03/11/19 05:00 Intake & Output 03/10/19 03/11/19 03/11/19 18:59 06:59 18:59 Intake Total 950 1200 480 Output Total 2 Balance 948 1200 480 Intake: IV 350 Oral 600 1200 480 Output: Estimated Blood Loss 2 Other: Voiding Method Toilet Toilet Toilet # Voids 2 6 - Labs CBC & Chem 7: 03/09/19 07:50 03/10/19 08:36
--- NOTE | 2019-03-11 15:36 | NM ---
EXAMINATION TYPE: NM bone scan whole body DATE OF EXAM: 03/11/2019 COMPARISON: Chest CT from 5 days ago. HISTORY: Newly diagnosed malignancy. Delayed whole-body scanning was performed following the injection of 25 mCi Tc 99m MDP. Images acqui red 4.5 hours post injection. Whole body spot images as well as additional projections of the abdomen and pelvis are obtained FINDINGS: There is single layer of radiotracer uptake involving anterolateral left lower rib likely correspondi ng to old fracture on CT comparison. No scintigraphic evidence of multiple axial lesions to suggest m etastatic disease to the bone. Incidental note is made of mild diffuse uptake through the enlarged li emily correlating with recently improved biopsy malignancy. IMPRESSION: As above.
[2019-03-11] MEDS: MORPHINE SULFATE 4 MG/ML SYRINGE IVP PRN (22:05)
[2019-03-12] MEDS: DEXAMETHASONE SOD PHOSPHATE 4 MG/ML 1 ML VIAL IV SCH ×2 (07:24→15:32)
[2019-03-12] MEDS: HYDROcodone/APAP 5-325MG 1 EACH TAB PO PRN ×3 (08:41→21:19)
[2019-03-12] MEDS: hydrALAZINE HCL 25 MG TAB PO SCH ×2 (08:41→21:17)
[2019-03-12] MEDS: PANTOPRAZOLE 40 MG TABLET PO SCH ×2 (08:41→18:09)
[2019-03-12] MEDS: HYDROCHLOROTHIAZIDE 50 MG TAB PO SCH (08:42)
[2019-03-12 10:00] LABS: Anisocytosis Slight; Basophils % (A) 0 %; Eosinophils % (A) 0 %; HGB 10.3 gm/dL (11.4-16.0); Hypochromasia Marked; Lymphocytes # (A) 0.6 k/uL (1.0-4.8); Lymphocytes % (A) 6 %; MCH 27.7 pg (25.0-35.0); MCHC 30.3 g/dL (31.0-37.0); MCV 91.3 fL (80.0-100.0); Mean Platelet Volume 7.4; Monocytes # (A) 0.4 k/uL (0-1.0); Monocytes % (A) 4 %; Neutrophils # (A) 8.4 k/uL (1.3-7.7); Neutrophils % (A) 88 %; Platelet Count 465 k/uL (150-450); RBC 3.73 m/uL (3.80-5.40); RDW 16.7 % (11.5-15.5); WBC 9.5 k/uL (3.8-10.6)
[2019-03-12 10:06] LABS: Albumin 3.7 g/dL (3.5-5.0); Calcium 11.7 mg/dL (8.4-10.2); Potassium 4.4 mmol/L (3.5-5.1); Total Bilirubin 2.7 mg/dL (0.2-1.3); Total Protein 7.1 g/dL (6.3-8.2)
--- NOTE | 2019-03-12 11:46 | P.HPIM ---
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 The patient's oncologic history began just over the last month. She reports that she had been feeling increasingly weak and having low appetite. Over the past 2 weeks, the patient developed pain in her lower back. She would have to shifter positions, as she could not sit for prolonged period of time. Ultimately, the patient presented to the ER on March 05, 2019. She also had n oticed difficulty with rectal bleeding leading up to this visit. In the emergency room, the patient had a CT scan of the abdomen performed is performed on March 05. This revealed innumerable hepatic metastasis, with the largest measuring up to 8.7 cm. There is also a large pelvic mass appreciated in the midline, measuring 8.6 cm, likely cervical in origin but with mass effect posteriorly on the rectum. There was some abnormal pelvic adenopathy measuring up to 3 cm. She did undergo a CT scan of the chest on March 06 which revealed no evidence of metastatic disease in the lung. Contrast enhanced MRI of the lumbar spine was unremarkable. On March [address]-guided biopsy of the liver which revealed poorly differentiated neuroendocrine carcinoma. A CT scan of the brain on March 11 revealed a 2 cm right parasellar mass with osseous involvement, there is also a 1 cm hypodense area in the basal ganglia which may represented remote ischemia. Bone scan performed earlier today revealed no evidence of bony metastatic disease. At this time, the patient denies difficulties with headaches, visual changes, and pain or pressure behind the eyes. She reports that her lower back pain has improved, but she still has pain in the lumbar spine which radiates down the the bilateral lower extremities. This seems to radiate more down the right than the left. The patient reports she still feels generally weak, but she is able to ambulate to the bathroom. She notes only mild nausea at this time, and has had continued aversion to eating. Review of Systems Constitutional: Denies chills, Denies fever Eyes: denies blurred vision, denies bulging eye, denies decreased vision, denies diplopia Ears: deny: decreased hearing Ears, nose, mouth and throat: Denies headache Cardiovascular: Denies chest pain, Denies edema Respiratory: Denies cough, Denies dyspnea Gastrointestinal: Reports change in bowel habits, Reports hematochezia, Denies abdominal pain Genitourinary: Denies abnormal vaginal bleeding, Denies flank pain Menstruation: Reports postmenopausal Musculoskeletal: Denies frequent falls Integumentary: Denies rash, Denies sores Neurological: Reports numbness, Denies confusion, Denies convulsions, Denies double vision, Denies gait dysfunction, Denies headaches, Denies lack of coordination, Denies loss of vision, Denies memory loss, Denies motor distur bance, Denies paralysis, Denies paresthesias Psychiatric: Denies confusion, Denies disorientation Past Medical History Past Medical History: No Reported History History of Any Multi-Drug Resistant Organisms: None Reported Past Surgical History: No Surgical Hx Reported Past Psychological History: Depression Smoking Status: Never smoker Past Alcohol Use History: Rare Past Drug Use History: None Reported - Past Family History Mother Family Medical History: Hypertension Additional Family Medical History / Comment(s): triple bypass years ago Father Family Medical History: CVA/TIA Medications and Allergies Home Medications Medication Instructions Recorded Confirmed Type HYDROcodone/APAP 10-325MG [Hubbard 1 tab PO Q4HR PRN 3 Days #18 tab 03/10/19 Rx 10-325] Hydrochlorothiazide [Hydrodiuril] 50 mg PO DAILY #30 tab 03/10/19 Rx amLODIPine [Norvasc] 10 mg PO DAILY #30 tab 03/10/19 Rx hydrALAZINE HCL [Apresoline] 25 mg PO BID #60 tab 03/10/19 Rx Allergies Allergy/AdvReac Type Severity Reaction Status Date / Time No Known Allergies Allergy Verified 03/05/19 22:16 Physical Exam Vitals: Vital Signs Temp Pulse Resp BP Pulse Ox 03/12/19 08:44 18 03/12/19 05:00 97.6 F 57 L 18 125/75 93 L 03/11/19 19:32 98.2 F 104 H 18 143/72 95 03/11/19 16:00 18 Intake and Output 03/11/19 03/12/19 03/12/19 22:59 06:59 14:59 Intake Total 250 500 Balance 250 500 Intake: Oral 250 500 Other: Voiding Method Toilet Toilet Toilet # Voids 2 1 - Constitutional General appearance: no acute distress, obese - EENT Eyes: no abnormal pupil, EOMI, PERRLA (Gross examination visual urena intact) ENT: no hard of hearing, no NA/AT - Neck Neck: no lymphadenopathy - Respiratory Respiratory: bilateral: CTA - Cardiovascular Rhythm: regular Heart sounds: normal: S1, S2 - Gastrointestinal General gastrointestinal: no distended, soft - Integumentary Integumentary: no calor, no cyanotic - Neurologic Neurologic: CNII-XII intact - Musculoskeletal Musculoskeletal: gait normal, strength equal bilaterally - Psychiatric Psychiatric: A&O x's 3, appropriate affect Results CBC & Chem 7: 03/12/19 09:30 03/12/19 09:30 Labs: Abnormal Lab Results - Last 24 Hours (Table) 03/12/19 03/12/19 03/12/19 Range/Units 09:30 09:30 09:30 RBC 3.73 L (3.80-5.40) m/uL Hgb 10.3 L (11.4-16.0) gm/dL MCHC 30.3 L (31.0-37.0) g/dL RDW 16.7 H (11.5-15.5) % Plt Count 465 H (150-450) k/uL Neutrophils # 8.4 H (1.3-7.7) k/uL Lymphocytes # 0.6 L (1.0-4.8) k/uL Sodium 136 L (137-145) mmol/L Chloride 94 L (98-107) mmol/L Carbon Dioxide 32 H (22-30) mmol/L BUN 32 H (7-17) mg/dL Glucose 120 H (74-99) mg/dL Calcium 11.7 H (8.4-10.2) mg/dL Total Bilirubin 2.7 H (0.2-1.3) mg/dL AST 598 H (14-36) U/L ALT 229 H (9-52) U/L Alkaline Phosphatase 715 H (38-126) U/L Ammonia 38 H (<30) umol/L CT scan - abdomen: report reviewed, image reviewed CT scan - chest: report reviewed, image reviewed CT Scan - head: report reviewed, image reviewed CT scan - pelvis: report reviewed, image reviewed Thrombosis Risk Factor Assmnt - Choose All That Apply Each Factor Represents 1 point: Age 41-60 years Other Risk Factors: Yes Each Risk Factor Represents 2 Points: Malignancy Other congenital or acquired thrombophilia - If yes, enter type in comment: No Thrombosis Risk Factor Assessment Total Risk Factor Score: 3 Thrombosis Risk Factor Assessment Level: Moderate Risk Assessment and Plan Plan: The patient is a 50-year-old female with a history of 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 1. Parasellar mass: CT of the brain was reviewed with radiology. There is one lesion noted, that does not appear within the brain parenchyma proper. This appears in the sellar region, and may have some associated bony destruction. MRI recommended for further workup, and to rule out other smaller metastatic deposits. 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 Prior to initiating that would likely be a course of whole brain radiotherapy for poorly differentiated neuroendocrine cell carcinoma, I would prefer this finding be further evaluated with MRI. 2. Low back pain: MRI of the lumbar spine also reviewed with radiology, and no significant findings for bony disease or disease within the spinal canal. Furthermore, bone scan shows no clear evidence of bony metastatic lesions. My suspicion is that her pain is possibly originating from the expansile mass in the cervix/low rectum area. 3. Metastatic poorly diff neuroendocrine carcinoma: Patient has already discussed with medical oncology that initial chemotherapy is standard of care. She understands that this represents an incurable disease, but that is treatable. My inclination is that the patient be started on chemotherapy first, as she appears to not have significant GRAIN OPERATOR disease which is asymptomatic at this time. This would also likely help to improve her lower back pain if indeed this is originating from the primary cancer. If the patient is found on MRI to have further involvement of the GRAIN OPERATOR, whole brain radiation following the completion of systemic therapy or integrated between cycles would be reasonable. Time with Patient: Greater than 30
[2019-03-12] MEDS ORDERED: LACTULOSE 20 GM/30 ML CUP PO ONE (12:05)
--- NOTE | 2019-03-12 12:27 | MR ---
EXAMINATION TYPE: MR brain wo/w con DATE OF EXAM: 03/12/2019 COMPARISON: CT brain with contrast from yesterday. HISTORY: Newly diagnosed cancer. TECHNIQUE: Multiplanar, multisequence images of the brain and brainstem is performed without and with IV contras t, utilizing 10 mL intravenous Gadavist . FINDINGS: Diffusion weighted images demonstrate no evidence of a recent infarct or other diffusion ab normality. There is no suspicious extra-axial fluid collection. The ventricular system and cisterna l spaces are normal in size and appearance. The brain volume is age appropriate. Scattered foci of T 2 hyperintensity seen throughout the superficial, deep, periventricular white matter are present. Susan roximately 30-40 small scattered lesions are seen. Areas of old lacunar infarction versus prominent V irchow Jaime spaces left posterior basal ganglia and lateral thalamus on axial image [address] Midline structures demonstrate normal morphology. The craniocervical junction appears within normal limits. Correlating with CT adjacent to right distal internal carotid artery siphon there is heterog eneous enhancing 1.8 x 1.6 cm slightly T2 hyperintense and T1 hypointense lesion corresponding to CT hyperdense lesion on postcontrast images images demonstrate no additional enhancing intraparenchymal masses. CT shows bowing of the sinus wall without definitive bony destruction. There is normal adjace nt vascular flow void identified. The dural venous sinuses appear patent. The visualized sinuses are clear and the globes are intact. IMPRESSION: As above. Suspicious area right parasellar region redemonstrated. I do not suspect this r elates to newly diagnosed hepatic metastatic malignancy. Lesion is extra-axial in location suggesting could reflect a meningioma. Vascular etiology not excluded though felt less likely given good visual ization of adjacent flow void on MRI.
--- NOTE | 2019-03-12 13:27 | P.PN ---
Subjective Progress Note Date: 03/12/19 Principal diagnosis: New pelvic and hepatic lesions MRI of the brain completed and difficult to confirm the suspicious lesion in brain is a malignant lesion. At this time will discuss with radiation oncology, likely will begin first round of chemotherapy corinna and evaluate patient for rehab at discharge. Objective - Vital Signs Vital signs: Vital Signs Temp 97.6 F 03/12/19 05:00 Pulse 57 L 03/12/19 05:00 Resp 18 03/12/19 08:44 BP 125/75 03/12/19 05:00 Pulse Ox 93 L 03/12/19 05:00 Intake & Output 03/11/19 03/12/19 03/12/19 18:59 06:59 18:59 Intake Total 480 250 500 Balance 480 250 500 Intake: Oral 480 250 500 Other: Voiding Method Toilet Toilet Toilet # Voids 6 1 - Exam General: Alert and Oriented x3, No Acute Distress Head: Normocytic, Atraumatic Neck: Supple Mouth: No Lesions, No Thrush Eyes: Non-sclerotic No Palpable cervical, supraclavicular, axillary adenopathy Heart: Regular Rate, Regular Rhythm Lungs: Clear to Ausculations, No Wheeze, No Rhonchi, Diminishe bilateral lower lobes, No increased respiratory effort noted Abdomen: Soft, Non-Distended, Non-Tended, BSx4 Extremities: No Edema, Equal Strength Neurological: No Focal Defects: No sensory or motor deficits noted Psych: Calm and cooperative - Labs CBC & Chem 7: 03/12/19 09:30 03/12/19 09:30 Labs: Abnormal Lab Results - Last 24 Hours (Table) 03/12/19 03/12/19 03/12/19 Range/Units 09:30 09:30 09:30 RBC 3.73 L (3.80-5.40) m/uL Hgb 10.3 L (11.4-16.0) gm/dL MCHC 30.3 L (31.0-37.0) g/dL RDW 16.7 H (11.5-15.5) % Plt Count 465 H (150-450) k/uL Neutrophils # 8.4 H (1.3-7.7) k/uL Lymphocytes # 0.6 L (1.0-4.8) k/uL Sodium 136 L (137-145) mmol/L Chloride 94 L (98-107) mmol/L Carbon Dioxide 32 H (22-30) mmol/L BUN 32 H (7-17) mg/dL Glucose 120 H (74-99) mg/dL Calcium 11.7 H (8.4-10.2) mg/dL Total Bilirubin 2.7 H (0.2-1.3) mg/dL AST 598 H (14-36) U/L ALT 229 H (9-52) U/L Alkaline Phosphatase 715 H (38-126) U/L Ammonia 38 H (<30) umol/L Assessment and Plan Plan: Chest x-ray: report reviewed CT scan - abdomen: report reviewed CT scan - pelvis: report reviewed Assessment and Plan Pelvic mass in female - Noted large central pelvic mass, along with what appears to be metastatic disease in the liver. - Neuroendocrine Carcinoma poorly differentiated New Diagnosis neural endocrine carcinoma poorly differentiated metastatic to the liver (?bone brain): - Radiation oncology evaluation - Immediate start of a carboplatin PREFABRICATOR 16 chemotherapy regimen and we'll likely add a biphosphonate or bone strengthener if metastatic disease to the bone is confirmed on nuclear bone scan - Decadron and PPI at this time - MRI of the brain was able to be completed today and still unclear if metastatic disease - Bone Scan did not reveal evidence of metastatic disease. Hepatic lesions concern for malignancy metastatic to liver - status Post Biopsy - Monitor liver enzymes for any evidence of rapidly progressing liver decompensation Anemia: - Component of blood loss anemia - GI and inflammation from probable malignancy - Reviewed iron studies Debility and inability to walk: - Discussed with primary team will have PT/OT evaluate, for safety at discharge, MRI Spine and Brain as outpatient and plan for homecare with PT/OT - Long discussion with patient and sisters today. We reviewed pathology and overall prognosis of her metastatic cancer diagnosis radiation oncology will evaluate Cher. She will likely require whole brain radiation due to the fast growth of the type of cancer. As well as immediate chemotherapy when November. Since we have been unable to utilize MRI she may benefit from initiation of chemotherapy and in her weakened state and inability to care for herself at home at this point I will discuss with Dr. Barber the possibility of admission and inpatient rehab for the ability to receive radiation therapy during rehabilitation if this is considered after a first cycle of carboplatin PREFABRICATOR 16 then this will give us approximately 2 or 3 weeks to increase her stamina and strength. Patient and family also expressed the difficulty with transportation. Case management is following and will also have social work follow Patient and sisters understand her overall disease is considered not curative. Our goals of treatment will be palliative only for improved quality of life and possible increased quantity of life. Greater than 30 minutes spent [id number] with the patient and family emotional support was given and greater than 50% of this time was counseling and coordinating care. All of their questions were answered to the best of my ability and understanding her stated. On the CAT scan there was also question of metastatic disease to the bone so a bone scan has also been ordered. I have discussed this in full with case management primary care team radiation oncology, Dr Winn and todays nurse PLan; - MRI of the brain completed and question of malignant lesion versus meningioma. - Patient is still weak and stamina decreased, concern for safety at home - Appreciate PT/OT recs regarding Discharge with PT/OT cversus rehab - If rehabilitation is needed may considered giving cycle one of chemotherapy inpatient with the underlying aggressiveness of cancer. - discussed in detail with primary team and radiaition onc. Symptoms felt to be secondary to metastatic cancer, and aggresive cancer. Rec inpatient Carboplatin PREFABRICATOR 16 and then considder re-evaluate IPR 1-2 weeks
--- NOTE | 2019-03-12 14:37 | P.PN ---
Subjective Progress Note Date: 03/12/19 Principal diagnosis: Metastatic cancer Patient was seen and examined. No acute events overnight. Patient complains of chronic lower back pain, 7 out of 10 in severity. She also complains of pain radiating down bilateral lower extremities with numbness to the plantar aspect of her foot. She denies any bladder or bowel incontinence. No saddle anesthesia. Patient denies any chest pain, shortness of breath or palpitations. Objective - Vital Signs Vital signs: Vital Signs Temp 97.6 F 03/12/19 05:00 Pulse 57 L 03/12/19 05:00 Resp 18 03/12/19 08:44 BP 125/75 03/12/19 05:00 Pulse Ox 93 L 03/12/19 05:00 Intake & Output 03/11/19 03/12/19 03/12/19 18:59 06:59 18:59 Intake Total 480 250 500 Balance 480 250 500 Intake: Oral 480 250 500 Other: Voiding Method Toilet Toilet Toilet # Voids 6 1 - Exam General: [non toxic], [no distress], [appears at stated age] Derm: [warm], [dry] Head: [atraumatic], [normocephalic], [symmetric] Cardiovascular: [S1S2 reg], [no murmur], [positive DP pulse bilateral] Lungs: [CTA bilateral], [no rhonchi, no rales] , [no accessory muscle use] Abdominal: [soft], [distended, nontender to palpation], [no guarding], [no appreciable organomegaly] Ext: [no gross muscle atrophy], [no edema], [no contractures], [no CVA tenderness] Psych: [Alert], [oriented], [appropriate affect] - Labs CBC & Chem 7: 03/12/19 09:30 03/12/19 09:30 Labs: Abnormal Lab Results - Last 24 Hours (Table) 03/12/19 03/12/19 03/12/19 Range/Units 09:30 09:30 09:30 RBC 3.73 L (3.80-5.40) m/uL Hgb 10.3 L (11.4-16.0) gm/dL MCHC 30.3 L (31.0-37.0) g/dL RDW 16.7 H (11.5-15.5) % Plt Count 465 H (150-450) k/uL Neutrophils # 8.4 H (1.3-7.7) k/uL Lymphocytes # 0.6 L (1.0-4.8) k/uL Sodium 136 L (137-145) mmol/L Chloride 94 L (98-107) mmol/L Carbon Dioxide 32 H (22-30) mmol/L BUN 32 H (7-17) mg/dL Glucose 120 H (74-99) mg/dL Calcium 11.7 H (8.4-10.2) mg/dL Total Bilirubin 2.7 H (0.2-1.3) mg/dL AST 598 H (14-36) U/L ALT 229 H (9-52) U/L Alkaline Phosphatase 715 H (38-126) U/L Ammonia 38 H (<30) umol/L Assessment and Plan Assessment: Pelvic mass, rectal versus cervical in origin, status post IR guided liver biopsy on 03/08/2019 Metabolic encephalopathy Diastolic CHF, chronic Transaminitis Elevated BP Normocytic anemia As seen on CT abdomen and pelvis. Discussed with JIMENEZ Ulrich, MRI brain is not concerning for metastatic disease along with bone scan. Elevated CA 125. Plans: Plans for 3 days of inpatient chemotherapy. Plans for PMR to evaluate for inpatient rehab. Discontinue dexamethasone as there are no metastatic lesions to the brain. Add stool softener. Follow oncology recommendations. Ammonia level 38. Plans: Repeat ammonia in the morning. Lactulose 20 g now. Elevated CA 125 Echocardiogram shows severe concentric LVH. Plans: Need to control BP better. Follow cardiology in the outpatient setting. Likely due to tumor burden. Plans: CMP 3 days from discharge. BP 125/75. Plans: Continue amlodipine, hydralazine, hydrochlorothiazide. Monitor vitals, adjust medications as necessary. Hemoglobin 10.3, normocytic, stable. Iron studies show iron deficiency. Plans: CBC 3 days from discharge. Discussed with JIMENEZ Ulrich. Plan is for patient to receive 3 days of inpatient chemotherapy due to the aggressive nature of this cancer and be evaluated by PMR for possible inpatient rehab.
--- NOTE | 2019-03-12 15:18 | P.CONS ---
History of Present Illness - Chief Complaint Medical debility - History of Present Illness I had the opportunity see patient for inpatient rehab consultation with regard to medical debility. She was admitted to [facility] March 05 with low back or bilateral buttock pain. Workup consistent with pelvic mass for which is seen by Drs. Caballero and Elisabeth. Seen by PT reports supervision to minimal assistance for bed mobility and minimal to moderate assistance for gait 300 feet, hand-held and multiple loss of balance. OT prescribed. Chest CT demonstrates multiple liver metastases. Lumbar MRI demonstrates DDD L2-4 with L3 herniation. L3 with central and bilateral encroachment. Liver biopsy done. Chest x-ray consistent with mediastinal mass. Head CT and brain MRI demonstrates right parasellar mass. Bone scan consistent with old rib fractures only. Previous functional history as elicited patient: 58-year-old right-handed white female single lives in one floor home with mom. Patient works full-time and was previously independent with cooking, laundry, driving, standing shower and gait without device. Denies tobacco or alcohol. Family history mother with cardiac disease, hypertension and stroke or mini stroke. Review of Systems Review of systems: ENT: Denies sneezes or discharge. Eyes: Denies discharge or photophobia. Cardiac: Denies chest pain or palpitation. Pulmonary: Denies cough or shortness of breath. Breast: Denies discharge or lumps. Gastrointestinal: Abdominal fullness or mild nausea. Genitourinary: Denies discharge or frequency. Musculoskeletal: Discomfort and low back and bilateral buttocks. Neurologic: Generalized weakness. Endocrine: Denies shakes or sweats. Oncology: Denies cancers. Dermatologic: Denies rash, itching, pruritus. ALLERGY/immunology: Denies sneezes, rashes. Past Medical History Past Medical History: No Reported History History of Any Multi-Drug Resistant Organisms: None Reported Past Surgical History: No Surgical Hx Reported Past Psychological History: Depression Smoking Status: Never smoker Past Alcohol Use History: Rare Past Drug Use History: None Reported - Past Family History Mother Family Medical History: Hypertension Additional Family Medical History / Comment(s): triple bypass years ago Father Family Medical History: CVA/TIA Medications and Allergies Home Medications Medication Instructions Recorded Confirmed Type HYDROcodone/APAP 10-325MG [[place] 1 tab PO Q4HR PRN 3 Days #18 tab 03/10/19 Rx 10-325] Hydrochlorothiazide [Hydrodiuril] 50 mg PO DAILY #30 tab 03/10/19 Rx amLODIPine [Norvasc] 10 mg PO DAILY #30 tab 03/10/19 Rx hydrALAZINE HCL [Apresoline] 25 mg PO BID #60 tab 03/10/19 Rx Allergies Allergy/AdvReac Type Severity Reaction Status Date / Time No Known Allergies Allergy Verified 03/05/19 22:16 Physical Exam Vitals: Vital Signs Temp Pulse Resp BP Pulse Ox 03/12/19 08:44 18 03/12/19 05:00 97.6 F 57 L 18 125/75 93 L 03/11/19 19:32 98.2 F 104 H 18 143/72 95 03/11/19 16:00 18 Intake and Output 03/12/19 03/12/19 03/12/19 06:59 14:59 22:59 Intake Total 500 Balance 500 Intake: Oral 500 Other: Voiding Method Toilet Toilet # Voids 1 Skin: Good color, texture, turgor. General: Overweight build and comfortable and fatigued appearance. Head: Normocephalic, atraumatic. Eyes: Symmetric. Pupils equal round. Ears: Symmetric. Hearing within normal limits. Mouth: Clear. Neck: Supple. Carotid without bruit. Cardiac: Regular rate and rhythm. Lungs: Clear anteriorly and posteriorly. Abdomen: Soft active nontender. Extremities: Normal tone. Neurological: Mental status: Alert, cooperative, pleasant. Fatigued affect. Cranial nerves: Symmetric facial tone and trapezius. Motor: Normal strength and isolation all 4 limbs. Endurance limited though. Sensation: Intact throughout. DTRs: Symmetric and equal throughout. Mobility: I interrupted a very late lunch and patient declined another walking session. Results CBC & Chem 7: 03/12/19 09:30 03/12/19 09:30 Labs: Abnormal Lab Results - Last 24 Hours (Table) 03/12/19 03/12/19 03/12/19 Range/Units 09:30 09:30 09:30 RBC 3.73 L (3.80-5.40) m/uL Hgb 10.3 L (11.4-16.0) gm/dL MCHC 30.3 L (31.0-37.0) g/dL RDW 16.7 H (11.5-15.5) % Plt Count 465 H (150-450) k/uL Neutrophils # 8.4 H (1.3-7.7) k/uL Lymphocytes # 0.6 L (1.0-4.8) k/uL Sodium 136 L (137-145) mmol/L Chloride 94 L (98-107) mmol/L Carbon Dioxide 32 H (22-30) mmol/L BUN 32 H (7-17) mg/dL Glucose 120 H (74-99) mg/dL Calcium 11.7 H (8.4-10.2) mg/dL Total Bilirubin 2.7 H (0.2-1.3) mg/dL AST 598 H (14-36) U/L ALT 229 H (9-52) U/L Alkaline Phosphatase 715 H (38-126) U/L Ammonia 38 H (<30) umol/L Assessment and Plan (1) Metastases to the liver Current Visit: Yes Status: Acute Code(s): C78.7 - SECONDARY MALIG NEOPLASM OF LIVER AND INTRAHEPATIC BILE DUCT SNOMED Code(s): 79570897 (2) Pelvic mass in female Current Visit: Yes Status: Acute Code(s): R19.00 - INTRA-ABD AND PELVIC SWELLING, MASS AND LUMP, UNSP SITE SNOMED Code(s): 36241416 Plan: Impression: 1. Medical debility. 2. Pelvic mass with liver metastases. Comments and plan: At this time PT ongoing and OT prescribed. Have discussed possible inpatient rehab. Will however require an OT evaluation to consider. Safety concerns noted including multiple loss of balance with standing. She also noted patient did not follow with physicians closely.
[2019-03-12] MEDS: SENNOSIDES-DOCUSATE SODIUM 1 EACH TAB PO SCH (15:20)
[2019-03-12] MEDS: amLODIPine 10 MG TAB PO SCH (15:20)
[2019-03-12] MEDS: LACTATED RINGERS 1,000 ML IV SCH (15:21)
[2019-03-12 16:20] LABS: Prothrombin Time 10.9 sec (9.0-12.0)
[2019-03-12 16:25] LABS: Partial Thromboplastin Time 21.9 sec (22.0-30.0)
--- NOTE | 2019-03-12 16:40 | P.PN ---
Subjective Progress Note Date: 03/12/19 Principal diagnosis: metastatic poorly dif neuroendocrine carcinoma Pt feeling a bit better today. She recently had norco and reports her pain is in reasonable control. Working on discharge plan - possible IPR, possible chemotherapy prior. Objective - Vital Signs Vital signs: Vital Signs Temp 97.6 F 03/12/19 05:00 Pulse 57 L 03/12/19 05:00 Resp 18 03/12/19 08:44 BP 125/75 03/12/19 05:00 Pulse Ox 93 L 03/12/19 05:00 Intake & Output 03/11/19 03/12/19 03/12/19 18:59 06:59 18:59 Intake Total 480 250 500 Balance 480 250 500 Intake: Oral 480 250 500 Other: Voiding Method Toilet Toilet Toilet # Voids 6 1 2 - Constitutional General appearance: Present: no acute distress - EENT Eyes: Present: EOMI, PERRLA ENT: Present: hearing grossly normal - Respiratory Respiratory: bilateral: CTA - Gastrointestinal General gastrointestinal: Present: soft. Absent: distended - Integumentary Integumentary: Absent: calor, cellulitis - Neurologic Neurologic: Present: CNII-XII intact - Musculoskeletal Musculoskeletal: Present: strength equal bilaterally - Psychiatric Psychiatric: Present: A&O x's 3, appropriate affect, intact judgment & insight - Labs CBC & Chem 7: 03/12/19 09:30 03/12/19 09:30 Labs: Abnormal Lab Results - Last 24 Hours (Table) 03/12/19 03/12/19 03/12/19 Range/Units 09:30 09:30 09:30 RBC 3.73 L (3.80-5.40) m/uL Hgb 10.3 L (11.4-16.0) gm/dL MCHC 30.3 L (31.0-37.0) g/dL RDW 16.7 H (11.5-15.5) % Plt Count 465 H (150-450) k/uL Neutrophils # 8.4 H (1.3-7.7) k/uL Lymphocytes # 0.6 L (1.0-4.8) k/uL APTT (22.0-30.0) sec Sodium 136 L (137-145) mmol/L Chloride 94 L (98-107) mmol/L Carbon Dioxide 32 H (22-30) mmol/L BUN 32 H (7-17) mg/dL Glucose 120 H (74-99) mg/dL Calcium 11.7 H (8.4-10.2) mg/dL Total Bilirubin 2.7 H (0.2-1.3) mg/dL AST 598 H (14-36) U/L ALT 229 H (9-52) U/L Alkaline Phosphatase 715 H (38-126) U/L Ammonia 38 H (<30) umol/L 03/12/19 Range/Units 15:36 RBC (3.80-5.40) m/uL Hgb (11.4-16.0) gm/dL MCHC (31.0-37.0) g/dL RDW (11.5-15.5) % Plt Count (150-450) k/uL Neutrophils # (1.3-7.7) k/uL Lymphocytes # (1.0-4.8) k/uL APTT 21.9 L (22.0-30.0) sec Sodium (137-145) mmol/L Chloride (98-107) mmol/L Carbon Dioxide (22-30) mmol/L BUN (7-17) mg/dL Glucose (74-99) mg/dL Calcium (8.4-10.2) mg/dL Total Bilirubin (0.2-1.3) mg/dL AST (14-36) U/L ALT (9-52) U/L Alkaline Phosphatase (38-126) U/L Ammonia (<30) umol/L Assessment and Plan Plan: 1. Brain lesion: MRI shows sellar mass more likely consistent with meningioma - no other areas of intracranial disease. Discussed with patient that would hold off on any radiotherapy at this time. Discussed if she were to develop signs/symptoms of progression of sellar mass to notify us (visual field deficit, vision changes, headache ect). 2. Lower back pain: Bone-scan negative, lower back pain likely 2/2 the bulky primary pelvic disease (cervix vs rectum). Palliative radiotherapy an option for down the line, especially if rectal bleeding continues to be an issue. However, this disease is likely chemo-sensitive and will see how she responds to initial chemotherapy. 3. Metastatic poorly dif neuroendocrine ca: Will start chemotherapy in the near future; significant burden of liver disease. Time with Patient: Less than 30
[2019-03-13 07:58] LABS: Anisocytosis Slight; Basophils % (A) 0 %; Eosinophils # (A) 0.1 k/uL (0-0.7); Eosinophils % (A) 1 %; HCT 32.4 % (34.0-46.0); HGB 9.9 gm/dL (11.4-16.0); Hypochromasia Moderate; Lymphocytes # (A) 1.2 k/uL (1.0-4.8); Lymphocytes % (A) 13 %; MCH 27.3 pg (25.0-35.0); MCHC 30.5 g/dL (31.0-37.0); MCV 89.5 fL (80.0-100.0); Mean Platelet Volume 7.1; Monocytes # (A) 0.7 k/uL (0-1.0); Monocytes % (A) 7 %; Neutrophils # (A) 7.5 k/uL (1.3-7.7); Neutrophils % (A) 78 %; Platelet Count 396 k/uL (150-450); RBC 3.61 m/uL (3.80-5.40); RDW 16.4 % (11.5-15.5); WBC 9.6 k/uL (3.8-10.6)
[2019-03-13 08:10] LABS: Albumin 3.6 g/dL (3.5-5.0); Calcium 11.6 mg/dL (8.4-10.2); Total Bilirubin 3.1 mg/dL (0.2-1.3); Total Protein 7.1 g/dL (6.3-8.2)
[2019-03-13 08:15] LABS: Potassium 4.5 mmol/L (3.5-5.1)
--- NOTE | 2019-03-13 10:04 | P.PN ---
Subjective Progress Note Date: 03/13/19 Principal diagnosis: metastatic cancer, debility Patient was seen and examined. No acute events overnight.patient reports a very tiny bowel movement, continues to feel constipated. Patient reports some pelvic pressure but denies any abdominal pain. She denies any chest pain, shortness breath or palpitations. No nausea or vomiting. No fever or chills. Objective - Vital Signs Vital signs: Vital Signs Temp 97.7 F 03/13/19 04:24 Pulse 95 03/13/19 04:24 Resp 18 03/13/19 04:24 BP 116/79 03/13/19 04:24 Pulse Ox 95 03/13/19 04:24 Intake & Output 03/12/19 03/13/19 03/13/19 18:59 06:59 18:59 Intake Total 500 360 Balance 500 360 Weight 103.1 kg Intake: Oral 500 360 Other: Voiding Method Toilet Toilet # Voids 2 - Exam General: [non toxic], [no distress], [appears at stated age] Derm: [warm], [dry] Head: [atraumatic], [normocephalic], [symmetric] Cardiovascular: [S1S2 reg], [no murmur], [positive DP pulse bilateral] Lungs: [CTA bilateral], [no rhonchi, no rales] , [no accessory muscle use] Abdominal: [soft], [slightly distended, mild tenderness in bilateral lower quadrants without rebound], [no guarding], [no appreciable organomegaly] Ext: [no gross muscle atrophy], [no edema], [no contractures], [no CVA tenderness] Psych: [Alert], [oriented], [appropriate affect] - Labs CBC & Chem 7: 03/13/19 07:36 03/13/19 07:36 Labs: Abnormal Lab Results - Last 24 Hours (Table) 03/12/19 03/12/19 03/12/19 Range/Units 09:30 09:30 09:30 RBC 3.73 L (3.80-5.40) m/uL Hgb 10.3 L (11.4-16.0) gm/dL Hct (34.0-46.0) % MCHC 30.3 L (31.0-37.0) g/dL RDW 16.7 H (11.5-15.5) % Plt Count 465 H (150-450) k/uL Neutrophils # 8.4 H (1.3-7.7) k/uL Lymphocytes # 0.6 L (1.0-4.8) k/uL APTT (22.0-30.0) sec Sodium 136 L (137-145) mmol/L Chloride 94 L (98-107) mmol/L Carbon Dioxide 32 H (22-30) mmol/L BUN 32 H (7-17) mg/dL Glucose 120 H (74-99) mg/dL Calcium 11.7 H (8.4-10.2) mg/dL Total Bilirubin 2.7 H (0.2-1.3) mg/dL AST 598 H (14-36) U/L ALT 229 H (9-52) U/L Alkaline Phosphatase 715 H (38-126) U/L Ammonia 38 H (<30) umol/L Lactate Dehydrogenase (313-618) U/L 03/12/19 03/12/19 03/13/19 Range/Units 15:36 15:36 07:36 RBC 3.61 L (3.80-5.40) m/uL Hgb 9.9 L (11.4-16.0) gm/dL Hct 32.4 L (34.0-46.0) % MCHC 30.5 L (31.0-37.0) g/dL RDW 16.4 H (11.5-15.5) % Plt Count (150-450) k/uL Neutrophils # (1.3-7.7) k/uL Lymphocytes # (1.0-4.8) k/uL APTT 21.9 L (22.0-30.0) sec Sodium (137-145) mmol/L Chloride (98-107) mmol/L Carbon Dioxide (22-30) mmol/L BUN (7-17) mg/dL Glucose (74-99) mg/dL Calcium (8.4-10.2) mg/dL Total Bilirubin (0.2-1.3) mg/dL AST (14-36) U/L ALT (9-52) U/L Alkaline Phosphatase (38-126) U/L Ammonia (<30) umol/L Lactate Dehydrogenase 55854 H (313-618) U/L 03/13/19 Range/Units 07:36 RBC (3.80-5.40) m/uL Hgb (11.4-16.0) gm/dL Hct (34.0-46.0) % MCHC (31.0-37.0) g/dL RDW (11.5-15.5) % Plt Count (150-450) k/uL Neutrophils # (1.3-7.7) k/uL Lymphocytes # (1.0-4.8) k/uL APTT (22.0-30.0) sec Sodium 136 L (137-145) mmol/L Chloride 94 L (98-107) mmol/L Carbon Dioxide 32 H (22-30) mmol/L BUN 39 H (7-17) mg/dL Glucose (74-99) mg/dL Calcium 11.6 H (8.4-10.2) mg/dL Total Bilirubin 3.1 H (0.2-1.3) mg/dL AST 609 H (14-36) U/L ALT 213 H (9-52) U/L Alkaline Phosphatase 701 H (38-126) U/L Ammonia (<30) umol/L Lactate Dehydrogenase (313-618) U/L Assessment and Plan Assessment: Pelvic mass, rectal versus cervical in origin, status post IR guided liver biopsy on 03/08/2019 Metabolic encephalopathy Debility Diastolic CHF, chronic Transaminitis Elevated BP Normocytic anemia As seen on CT abdomen and pelvis. Discussed with [employer] Serg, MRI brain is not concerning for metastatic disease along with bone scan. Elevated CA 125. Plans: Plans for 3 days of inpatient chemotherapy. Radiation oncology recommends against radiation treatments at this time, will follow in the outpatient setting. Restart dexamethasone for chemotherapy. Plans for Carboplatin, Etoposide starting at 12PM. Add telemetry. Add stool softener. Follow oncology recommendations. Ammonia level 38-within normal limits. Also on steroids. Patient states she is confused due to all of the workup that is happening around her. CT brain showed possible mass, MRI brain shows no acute findings and possible meningioma. Plans: Will continue to monitor for changes in mentation. Physical therapy recommends possible AYLIN. PMR recommends OT evaluation. Plans: Social service is aware, possible DC to inpatient rehab. Follow-up PMR recommendations. Follow OT consultation. Echocardiogram shows severe concentric LVH. Plans: Need to control BP better. Follow cardiology in the outpatient setting. Likely due to tumor burden. Plans: CMP 3 days from discharge. BP 116/79. Plans: Continue amlodipine. Decrease dose of HCTZ and DC Hydralazine for now. Monitor vitals, adjust medications as necessary. Hemoglobin 9.9, normocytic, stable. Iron studies show iron deficiency. Plans: CBC 3 days from discharge. Discussed with JIMENEZ Ulrich. Plan is for patient to receive 3 days of inpatient chemotherapy due to the aggressive nature of this cancer and be evaluated by PMR for possible inpatient rehab.
[2019-03-13] MEDS: POLYETHYLENE GLYCOL 3350 17 GM POWD.PACK PO SCH (10:08)
[2019-03-13] MEDS: HYDROcodone/APAP 5-325MG 1 EACH TAB PO PRN ×2 (10:09→19:25)
[2019-03-13] MEDS: PANTOPRAZOLE 40 MG TABLET PO SCH ×2 (10:09→17:38)
[2019-03-13] MEDS: SENNOSIDES-DOCUSATE SODIUM 1 EACH TAB PO SCH (10:09)
[2019-03-13] MEDS: amLODIPine 10 MG TAB PO SCH (10:10)
[2019-03-13] MEDS ORDERED: CARBOplatin 450 MG in SODIUM CHLORIDE 0.9% 250 ML IV ONE (12:00)
[2019-03-13] MEDS: DEXAMETHASONE SOD PHOSPHATE 10 MG/ML 1 ML VIAL IV SCH (12:17)
[2019-03-13] MEDS: FAMOTIDINE 20 MG/2 ML VIAL IV SCH (12:17)
[2019-03-13] MEDS: LACTATED RINGERS 1,000 ML IV SCH (12:18)
[2019-03-13] MEDS: ONDANSETRON 16 MG in SODIUM CHLORIDE 0.9% 50 ML IVPB SCH (12:18)
[2019-03-13] MEDS: HYDROCHLOROTHIAZIDE 12.5 MG CAP PO SCH (12:18)
[2019-03-13] MEDS: ETOPOSIDE 200 MG in SODIUM CHLORIDE 0.9% 500 ML 500 ML IV SCH (13:13)
[2019-03-13] MEDS: SODIUM CHLORIDE 0.9% 1,000 ML IV SCH ×2 (13:14→22:27)
[2019-03-13] MEDS: hydrALAZINE HCL 25 MG TAB PO SCH (13:16)
[2019-03-13] MEDS: HYDROCHLOROTHIAZIDE 50 MG TAB PO SCH (13:16)
--- NOTE | 2019-03-13 15:56 | P.PN ---
Subjective Progress Note Date: 03/13/19 Principal diagnosis: New pelvic and hepatic lesions Chemotherapy initiated inpatient, tolerated first well nausea, no vomiting, passing gas but no BM in 3 days Objective - Vital Signs Vital signs: Vital Signs Temp 97.6 F 03/13/19 13:00 Pulse 77 03/13/19 13:00 Resp 16 03/13/19 15:45 BP 125/68 03/13/19 13:00 Pulse Ox 98 03/13/19 13:00 Intake & Output 03/12/19 03/13/19 03/13/19 18:59 06:59 18:59 Intake Total 037 246 7742 Balance 300 834 2937 Weight 103.1 kg Intake: Intake, IV Titration 1437 Amount CARBOplatin 450 mg In 295 Sodium Chloride 0.9% 250 ml @ 295 mls/hr IV ONCE ONE Rx#:[id number] Etoposide 200 mg In 510 Sodium Chloride 0.9% 500 ml 500 ml @ 510 mls/hr IV Q24H [facility] Rx#:[id number] Ondansetron 16 mg In 232 Sodium Chloride 0.9% 50 ml @ 232 mls/hr IVPB Q24H [facility] Rx#:[id number] Sodium Chloride 0.9% 1, 400 000 ml @ 100 mls/hr IV . Q10H [facility] Rx#:[id number] Oral 500 360 570 Other: Voiding Method Toilet Toilet Toilet # Voids 2 3 - Exam General: Alert and Oriented x3, No Acute Distress Head: Normocytic, Atraumatic Neck: Supple Mouth: No Lesions, No Thrush Eyes: Non-sclerotic No Palpable cervical, supraclavicular, axillary adenopathy Heart: Regular Rate, Regular Rhythm Lungs: Clear to Ausculations, No Wheeze, No Rhonchi, Diminishe bilateral lower lobes, No increased respiratory effort noted Abdomen: Soft, Non-Distended, Non-Tended, BSx4 Extremities: No Edema, Equal Strength Neurological: No Focal Defects: No sensory or motor deficits noted Psych: Calm and cooperative - Labs CBC & Chem 7: 03/13/19 07:36 03/13/19 07:36 Labs: Abnormal Lab Results - Last 24 Hours (Table) 03/12/19 03/12/19 03/13/19 Range/Units 15:36 15:36 07:36 RBC 3.61 L (3.80-5.40) m/uL Hgb 9.9 L (11.4-16.0) gm/dL Hct 32.4 L (34.0-46.0) % MCHC 30.5 L (31.0-37.0) g/dL RDW 16.4 H (11.5-15.5) % APTT 21.9 L (22.0-30.0) sec Sodium (137-145) mmol/L Chloride (98-107) mmol/L Carbon Dioxide (22-30) mmol/L BUN (7-17) mg/dL Calcium (8.4-10.2) mg/dL Total Bilirubin (0.2-1.3) mg/dL AST (14-36) U/L ALT (9-52) U/L Alkaline Phosphatase (38-126) U/L Lactate Dehydrogenase 34634 H (313-618) U/L 03/13/19 Range/Units 07:36 RBC (3.80-5.40) m/uL Hgb (11.4-16.0) gm/dL Hct (34.0-46.0) % MCHC (31.0-37.0) g/dL RDW (11.5-15.5) % APTT (22.0-30.0) sec Sodium 136 L (137-145) mmol/L Chloride 94 L (98-107) mmol/L Carbon Dioxide 32 H (22-30) mmol/L BUN 39 H (7-17) mg/dL Calcium 11.6 H (8.4-10.2) mg/dL Total Bilirubin 3.1 H (0.2-1.3) mg/dL AST 609 H (14-36) U/L ALT 213 H (9-52) U/L Alkaline Phosphatase 701 H (38-126) U/L Lactate Dehydrogenase (313-618) U/L Assessment and Plan Plan: Chest x-ray: report reviewed CT scan - abdomen: report reviewed CT scan - pelvis: report reviewed Assessment and Plan Pelvic mass in female - Noted large central pelvic mass, along with what appears to be metastatic disease in the liver. 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 Hepatic lesions concern for malignancy metastatic to liver - status Post Biopsy - Monitor liver enzymes for any evidence of rapidly progressing liver decompensation Anemia: - Component of blood loss anemia - GI and inflammation from probable malignancy - Reviewed iron studies Debility and inability to walk: - Discussed with primary team will have PT/OT evaluate, for safety at discharge, MRI Spine and Brain as outpatient and plan for homecare with PT/OT - Long discussion with patient and sisters today. We reviewed pathology and overall prognosis of her metastatic cancer diagnosis radiation oncology will evaluate Cher. She will likely require whole brain radiation due to the fast growth of the type of cancer. As well as immediate chemotherapy when November. Since we have been unable to utilize MRI she may benefit from initiation of chemotherapy and in her weakened state and inability to care for herself at home at this point I will discuss with Dr. Barber the possibility of admission and inpatient rehab for the ability to receive radiation therapy during rehabilitation if this is considered after a first cycle of carboplatin [employer] 16 then this will give us approximately 2 or 3 weeks to increase her stamina and strength. Patient and family also expressed the difficulty with transportation. Case management is following and will also have social work follow Patient and sisters understand her overall disease is considered not curative. Our goals of treatment will be palliative only for improved quality of life and possible increased quantity of life. Greater than 30 minutes spent [id number] with the patient and family emotional support was given and greater than 50% of this time was counseling and coordinating care. All of their questions were answered to the best of my ability and understanding her stated. On the CAT scan there was also question of metastatic disease to the bone so a bone scan has also been ordered. I have discussed this in full with case management primary care team radiation oncology, Dr Winn and todays nurse Increased LFTS: - Secondary to diffuse liver mets. PLan; - Carboplatin and [employer] 16 initiated - Daily CBC CMP - Increase Bowel Regimen - Ativan PRN Nausea - Add PPI
[2019-03-13] MEDS ORDERED: LORazepam 2 MG/ML INJ IV PRN (19:48)
[2019-03-13] MEDS: BISACODYL 5 MG TABLET.DR PO SCH (21:13)
[2019-03-14] MEDS: HYDROcodone/APAP 5-325MG 1 EACH TAB PO PRN ×3 (01:22→12:18)
[2019-03-14 07:54] LABS: Albumin 3.4 g/dL (3.5-5.0); Calcium 10.9 mg/dL (8.4-10.2); Total Bilirubin 3.4 mg/dL (0.2-1.3); Total Protein 6.6 g/dL (6.3-8.2)
[2019-03-14 07:56] LABS: Potassium 4.1 mmol/L (3.5-5.1)
[2019-03-14 08:18] LABS: Anisocytosis Slight; Basophils % (A) 0 %; Eosinophils % (A) 0 %; HGB 9.8 gm/dL (11.4-16.0); Hypochromasia Slight; Lymphocytes # (A) 0.6 k/uL (1.0-4.8); Lymphocytes % (A) 7 %; MCH 27.6 pg (25.0-35.0); MCHC 31.7 g/dL (31.0-37.0); MCV 87.1 fL (80.0-100.0); Mean Platelet Volume 7.7; Monocytes # (A) 0.7 k/uL (0-1.0); Monocytes % (A) 8 %; Neutrophils % (A) 83 %; Platelet Count 394 k/uL (150-450); RBC 3.56 m/uL (3.80-5.40); RDW 16.5 % (11.5-15.5); WBC 8.4 k/uL (3.8-10.6)
[2019-03-14] MEDS: BISACODYL 5 MG TABLET.DR PO SCH ×2 (08:28→20:27)
[2019-03-14] MEDS: POLYETHYLENE GLYCOL 3350 17 GM POWD.PACK PO SCH (08:28)
[2019-03-14] MEDS: PANTOPRAZOLE 40 MG TABLET PO SCH ×2 (08:29→17:28)
[2019-03-14] MEDS: SENNOSIDES-DOCUSATE SODIUM 1 EACH TAB PO SCH (08:29)
[2019-03-14] MEDS: amLODIPine 10 MG TAB PO SCH (08:29)
[2019-03-14] MEDS: SODIUM CHLORIDE 0.9% 1,000 ML IV SCH ×2 (08:29→17:27)
[2019-03-14] MEDS: HYDROCHLOROTHIAZIDE 12.5 MG CAP PO SCH (08:30)
[2019-03-14 09:42] LABS: Polychromasia Present
[2019-03-14] MEDS: ONDANSETRON 16 MG in SODIUM CHLORIDE 0.9% 50 ML IVPB SCH (12:11)
[2019-03-14] MEDS: LACTATED RINGERS 1,000 ML IV SCH (12:12)
[2019-03-14] MEDS: FAMOTIDINE 20 MG/2 ML VIAL IV SCH (12:12)
[2019-03-14] MEDS: DEXAMETHASONE SOD PHOSPHATE 10 MG/ML 1 ML VIAL IV SCH (12:12)
[2019-03-14] MEDS: ETOPOSIDE 200 MG in SODIUM CHLORIDE 0.9% 500 ML 500 ML IV SCH (12:39)
--- NOTE | 2019-03-14 13:44 | P.PN ---
Subjective Progress Note Date: 03/14/19 Principal diagnosis: Abdominal pain Patient was seen and examined. No acute events overnight. Patient complains of fatigue and sleepiness today. Also complains of pelvic pressure. She denies any chest pain, shortness of breath or palpitations. No nausea or vomiting. No fever or chills. Objective - Vital Signs Vital signs: Vital Signs Temp 97.7 F 03/14/19 05:00 Pulse 98 03/14/19 05:00 Resp 16 03/14/19 08:38 BP 129/83 03/14/19 05:00 Pulse Ox 93 L 03/14/19 05:00 Intake & Output 03/13/19 03/14/19 03/14/19 18:59 06:59 18:59 Intake Total 2006 1037 237 Balance 2006 1037 237 Weight 121.5 kg 109.5 kg Intake: Intake, IV Titration 1437 800 Amount CARBOplatin 450 mg In 295 Sodium Chloride 0.9% 250 ml @ 295 mls/hr IV ONCE ONE Rx#:[id number] Etoposide 200 mg In 510 Sodium Chloride 0.9% 500 ml 500 ml @ 510 mls/hr IV Q[facility] Rx#:[id number] Ondansetron 16 mg In 232 Sodium Chloride 0.9% 50 ml @ 232 mls/hr IVPB Q[facility] Rx#:[id number] Sodium Chloride 0.9% 1, 400 800 000 ml @ 100 mls/hr IV . Q10H [facility] Rx#:[id number] Oral 570 237 237 Other: Voiding Method Toilet Toilet Toilet # Voids 3 1 1 - Exam General: [non toxic], [no distress], [appears at stated age] Derm: [warm], [dry] Head: [atraumatic], [normocephalic], [symmetric] Cardiovascular: [S1S2 reg], [no murmur], [positive DP pulse bilateral] Lungs: [CTA bilateral], [no rhonchi, no rales] , [no accessory muscle use] Abdominal: [soft], [slightly distended, mild tenderness in bilateral lower quadrants without rebound], [no guarding], [no appreciable organomegaly] Ext: [no gross muscle atrophy], [no edema], [no contractures], [no CVA tenderness] Psych: [Alert], [oriented], [appropriate affect] - Labs CBC & Chem 7: 03/14/19 07:12 03/14/19 07:12 Labs: Abnormal Lab Results - Last 24 Hours (Table) 03/14/19 03/14/19 Range/Units 07:12 07:12 RBC 3.56 L (3.80-5.40) m/uL Hgb 9.8 L (11.4-16.0) gm/dL Hct 31.0 L (34.0-46.0) % RDW 16.5 H (11.5-15.5) % Lymphocytes # 0.6 L (1.0-4.8) k/uL Carbon Dioxide 33 H (22-30) mmol/L BUN 37 H (7-17) mg/dL Glucose 101 H (74-99) mg/dL Calcium 10.9 H (8.4-10.2) mg/dL Total Bilirubin 3.4 H (0.2-1.3) mg/dL AST 590 H (14-36) U/L ALT 213 H (9-52) U/L Alkaline Phosphatase 700 H (38-126) U/L Albumin 3.4 L (3.5-5.0) g/dL Assessment and Plan Assessment: Pelvic mass, rectal versus cervical in origin, status post IR guided liver biopsy on 03/08/2019 Frequent PVCs Prerenal azotemia Metabolic encephalopathy Debility Diastolic CHF, chronic Transaminitis Elevated BP Normocytic anemia As seen on CT abdomen and pelvis. Discussed with JIMENEZ Ulrich, MRI brain is not concerning for metastatic disease along with bone scan. Elevated CA 125. Plans: Plans for 3 days of inpatient chemotherapy. Radiation oncology recommends against radiation treatments at this time, will follow in the outpatient setting. Restart dexamethasone for chemotherapy. Continue Carboplatin, Etoposide. Add telemetry. Add stool softener. Follow oncology recommendations. As seen on telemetry. Plans: Discontinue amlodipine and start Coreg 3.125 mg by mouth daily. Check magnesium. Follow cardiology consultation. BUN 37, creatinine within normal limits. Likely secondary to dehydration. Plans: Continue normal saline at 100 mL per hour. Check BMP tomorrow. Ammonia level 38-within normal limits. Also on steroids. Patient states she is confused due to all of the workup that is happening around her. CT brain showed possible mass, MRI brain shows no acute findings and possible meningioma. Plans: Will continue to monitor for changes in mentation. Physical therapy and OT recommends possible AYLIN. PMR recommends OT evaluation. Plans: Social service is aware, possible DC to inpatient rehab. Follow-up PMR recommendations. Echocardiogram shows severe concentric LVH. Plans: Need to control BP better. Follow cardiology in the outpatient setting. Likely due to tumor burden. Plans: CMP 3 days from discharge. BP 129/83. Plans: DC amlodipine and start Coreg 3.125 g by mouth twice a day. Decrease dose of HCTZ and DC Hydralazine for now. Monitor vitals, adjust medications as necessary. Hemoglobin 9.8, normocytic, stable. Iron studies show iron deficiency. Plans: CBC 3 days from discharge. Discussed with JIMENEZ Ulrich. Plan is for patient to receive 3 days of inpatient chemotherapy due to the aggressive nature of this cancer and be evaluated by PMR for possible inpatient rehab.
[2019-03-14] MEDS: CARVEDILOL 3.125 MG TAB PO SCH (17:28)
[2019-03-14] MEDS: MORPHINE SULFATE 4 MG/ML SYRINGE IVP PRN (22:12)
[2019-03-15] MEDS: SODIUM CHLORIDE 0.9% 1,000 ML IV SCH ×3 (05:42→21:42)
[2019-03-15] MEDS: PANTOPRAZOLE 40 MG TABLET PO SCH ×2 (08:01→17:17)
[2019-03-15] MEDS: CARVEDILOL 3.125 MG TAB PO SCH ×2 (08:01→17:16)
[2019-03-15] MEDS: BISACODYL 5 MG TABLET.DR PO SCH ×2 (08:01→19:46)
[2019-03-15] MEDS: HYDROCHLOROTHIAZIDE 12.5 MG CAP PO SCH (08:01)
[2019-03-15] MEDS: POLYETHYLENE GLYCOL 3350 17 GM POWD.PACK PO SCH (08:01)
[2019-03-15] MEDS: ONDANSETRON 4 MG/2 ML VIAL IVP PRN (08:02)
[2019-03-15] MEDS: SENNOSIDES-DOCUSATE SODIUM 1 EACH TAB PO SCH (08:12)
[2019-03-15] MEDS: HYDROcodone/APAP 5-325MG 1 EACH TAB PO PRN ×3 (08:12→19:46)
[2019-03-15 08:13] LABS: Anisocytosis Slight; Basophils % (A) 0 %; Eosinophils % (A) 0 %; HCT 31.2 % (34.0-46.0); HGB 9.5 gm/dL (11.4-16.0); Hypochromasia Marked; Lymphocytes # (A) 0.6 k/uL (1.0-4.8); Lymphocytes % (A) 6 %; MCH 27.7 pg (25.0-35.0); MCHC 30.3 g/dL (31.0-37.0); MCV 91.3 fL (80.0-100.0); Mean Platelet Volume 7.4; Monocytes # (A) 0.3 k/uL (0-1.0); Monocytes % (A) 3 %; Neutrophils # (A) 8.3 k/uL (1.3-7.7); Neutrophils % (A) 90 %; Platelet Count 426 k/uL (150-450); RBC 3.42 m/uL (3.80-5.40); RDW 16.8 % (11.5-15.5); WBC 9.3 k/uL (3.8-10.6)
[2019-03-15 08:37] LABS: Albumin 3.4 g/dL (3.5-5.0); Calcium 10.9 mg/dL (8.4-10.2); Potassium 4.5 mmol/L (3.5-5.1); Total Bilirubin 4.5 mg/dL (0.2-1.3); Total Protein 6.6 g/dL (6.3-8.2)
[2019-03-15] MEDS: FAMOTIDINE 20 MG/2 ML VIAL IV SCH (12:27)
[2019-03-15] MEDS: ONDANSETRON 16 MG in SODIUM CHLORIDE 0.9% 50 ML IVPB SCH (12:27)
[2019-03-15] MEDS: DEXAMETHASONE SOD PHOSPHATE 10 MG/ML 1 ML VIAL IV SCH (12:27)
[2019-03-15] MEDS: ETOPOSIDE 200 MG in SODIUM CHLORIDE 0.9% 500 ML 500 ML IV SCH (12:58)
--- NOTE | 2019-03-15 14:22 | P.PN ---
Subjective Progress Note Date: 03/15/19 Principal diagnosis: Metastatic cancer Patient is a 58-year-old female with no known PMH, who hasn't seen a physician for many years presented to the ED with multiple complaints. The patient reports that over the past several years, she has had intermittent lower back pain, which she attributed to DJD and attempted to manage conservatively. She states that her pain radiates to both her buttocks, as it has been previously for several years. She notes that 2 weeks ago however her pain somewhat worsened and she also developed worsening lethargy, weight loss, and anorexia. She made an appointment with a PCP but in light of her worsening lethargy, she decided to come to the ED. The patient underwent an extensive evaluation w/ CT abd/pelvis w/ contrast showing large bilobed mass measuring up to 8.7 cm in the low pelvis. Innumerable hepatic mets w/ largest being 8.7 cm with abnormal adenopathy within the abdomen and pelvis, presumed metastatic. The patient was admitted for further management of suspected malignancy. General surgery was consulted and recommended an TOOL INSPECTOR consult in light of possible cervical origin of the mass. Dr. Barber from oncology evaluate the patient and recommended that she would likely benefit from a biopsy of the metastatic site from the liver. TOOL INSPECTOR consult was thereby canceled and the patient underwent the IR guided liver biopsy on 03/08/2019. General surgery was consulted and patient was scheduled for MediPort insertion on 03/10/2019. 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 CT of the brain was performed which showed possible metastatic disease to the brain. Radiation oncology was consulted and recommended MRI of the brain, images were reviewed and thought to be likely a meningioma and not hepatic metastatic malignancy. MRI of the spine was performed along with bone scan which showed no metastatic disease to the bone. Patient was scheduled to undergo 3 rounds of chemotherapy due to the aggressive nature of her cancer and was started on 03/13/2019 with carboplatin and etoposide. Patient was also noted to have fluctuation in her mentation. Ammonia level was ordered which was slightly elevated at 38, she was given lactulose one time and was within normal limits on repeat. Physical therapy and occupational therapy evaluated the patient and recommended acute inpatient rehab. PMR evaluated the patient and recommended possible inpatient rehab. Patient was seen and examined. No acute events overnight. Patient reports fatigue. She was able to 3 bowel movements, but small thin string like. She reports improvement in her pelvic pressure. Patient denies any chest pain or shortness breath or palpitations. No nausea or vomiting. No fever or chills. Tolerating diet well. Objective - Vital Signs Vital signs: Vital Signs Temp 98.0 F 03/14/19 21:00 Pulse 78 03/14/19 21:00 Resp 18 03/14/19 21:00 BP 127/73 03/14/19 21:00 Pulse Ox 92 L 03/14/19 21:00 Intake & Output 03/14/19 03/15/19 03/15/19 18:59 06:59 18:59 Intake Total 191 1200 Balance 191 1200 Weight 109.5 kg 109.5 kg Intake: Intake, IV Titration 1432 1200 Amount Etoposide 200 mg In 500 Sodium Chloride 0.9% 500 ml 500 ml @ 510 mls/hr IV Q24H [facility] Rx#:[id number] Ondansetron 16 mg In 232 Sodium Chloride 0.9% 50 ml @ 232 mls/hr IVPB Q24H [facility] Rx#:[id number] Sodium Chloride 0.9% 1, 700 1200 000 ml @ 100 mls/hr IV . Q10H [facility] Rx#:[id number] Oral 487 Other: Voiding Method Toilet Toilet # Voids 3 1 # Bowel Movements 1 - Exam General: [non toxic], [no distress], [appears at stated age] Derm: [warm], [dry] Head: [atraumatic], [normocephalic], [symmetric] Cardiovascular: [S1S2 reg], [no murmur], [positive DP pulse bilateral] Lungs: [CTA bilateral], [no rhonchi, no rales] , [no accessory muscle use] Abdominal: [soft], [slightly distended, mild tenderness in bilateral lower quadrants without rebound], [no guarding], [no appreciable organomegaly] Ext: [no gross muscle atrophy], [no edema], [no contractures], [no CVA tenderness] Psych: [Alert], [oriented], [appropriate affect] - Labs CBC & Chem 7: 03/15/19 07:42 03/15/19 07:42 Labs: Abnormal Lab Results - Last 24 Hours (Table) 03/14/19 03/14/19 Range/Units 07:12 07:12 RBC 3.56 L (3.80-5.40) m/uL Hgb 9.8 L (11.4-16.0) gm/dL Hct 31.0 L (34.0-46.0) % RDW 16.5 H (11.5-15.5) % Lymphocytes # 0.6 L (1.0-4.8) k/uL Carbon Dioxide 33 H (22-30) mmol/L BUN 37 H (7-17) mg/dL Glucose 101 H (74-99) mg/dL Calcium 10.9 H (8.4-10.2) mg/dL Total Bilirubin 3.4 H (0.2-1.3) mg/dL AST 590 H (14-36) U/L ALT 213 H (9-52) U/L Alkaline Phosphatase 700 H (38-126) U/L Albumin 3.4 L (3.5-5.0) g/dL Assessment and Plan Assessment: Pelvic mass, rectal versus cervical in origin, status post IR guided liver biops y on 03/08/2019 Frequent PVCs Prerenal azotemia Metabolic encephalopathy Debility Diastolic CHF, chronic Transaminitis Elevated BP Normocytic anemia As seen on CT abdomen and pelvis. Discussed with JIMENEZ Ulrich, MRI brain is not concerning for metastatic disease along with bone scan. Elevated CA 125. Plans: Last day of inpatient chemotherapy today (Carboplatin and Etoposide). Radiation oncology recommends against radiation treatments at this time, will follow in the outpatient setting. Continue telemetry. Add stool softener. Follow oncology recommendations. As seen on telemetry. Mg within normal limits. Plans: Discontinue amlodipine and continue Coreg 3.125 mg by mouth daily. PVCs have considerably improved since starting beta cassie. Follow cardiology consultation. BUN 37-35, creatinine within normal limits. Likely secondary to dehydration. Plans: Continue normal saline at 100 mL per hour. Check BMP tomorrow. Ammonia level 38-within normal limits. Also on steroids. Patient states she is confused due to all of the workup that is happening around her. CT brain showed possible mass, MRI brain shows no acute findings and possible meningioma. Plans: Will continue to monitor for changes in mentation. Physical therapy and OT recommends possible AYLIN. PMR recommends OT evaluation. Plans: Social service is aware, DC to inpatient rehab. Follow-up PMR recommendations. Echocardiogram shows severe concentric LVH. Plans: Need to control BP better. Follow cardiology in the outpatient setting. Likely due to tumor burden. Plans: CMP 3 days from discharge. BP 132/65. Plans: Continue Coreg 3.125 g by mouth twice a day. Decrease dose of HCTZ and DC Hydralazine for now. Monitor vitals, adjust medications as necessary. Hemoglobin 9.5, normocytic, stable. Iron studies show iron deficiency. Plans: CBC 3 days from discharge. [Patient has received 3 days of inpatient chemotherapy due to aggressive nature of this cancer. She has been evaluated by PMR and will go to inpatient rehab on discharge. Insurance authorization pending.]
--- NOTE | 2019-03-15 14:33 | P.PN ---
Progress Note - Text Progress Note Date: 03/15/19 ACP coding Discussed with the patient the prognosis of her diagnosis and went over advance directives, CODE STATUS and possible palliative care. This conversation took greater than 15 minutes. Patient states that at this time she would like to remain full code. We discussed advanced directives and that her mother would be next of kin. Patient reports that her mother's mentation is not the best and that it would be a family decision between her 2 sisters and mother. If she had to choose, patient chooses her sister Mulu over Sofi as decision maker if the case that she cant make decisions for herself. We also discussed palliative options for symptomatic management once out of inpatient rehab. Patient refuses at this time but considers it a good option and will keep that in mind.
--- NOTE | 2019-03-15 16:04 | P.PN ---
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 Nursing states patient has only requested one pain pill in the last 24 hours. Patient states discomfort and constant pressure in the rectal area, stool caliber is very small, there was no blood noted in the stool today.Patient is receiving her day 3 of carboplatin and etoposide today. Plan is for some rehabilitation to improve her strength for further treatment. Objective - Vital Signs Vital signs: Vital Signs Temp 97.7 F 03/15/19 13:00 Pulse 57 L 03/15/19 07:48 Resp 18 03/15/19 13:00 BP 139/78 03/15/19 13:00 Pulse Ox 95 03/15/19 13:00 Intake & Output 03/14/19 03/15/19 03/15/19 18:59 06:59 18:59 Intake Total 1919 1200 1850 Balance 191 1200 1850 Weight 109.5 kg 109.5 kg 109.5 kg Intake: Intake, IV Titration 1432 1200 1400 Amount Etoposide 200 mg In 500 500 Sodium Chloride 0.9% 500 ml 500 ml @ 510 mls/hr IV Q24H [facility] Rx#:[id number] Ondansetron 16 mg In 232 100 Sodium Chloride 0.9% 50 ml @ 232 mls/hr IVPB Q24H [facility] Rx#:[id number] Sodium Chloride 0.9% 1, 700 1200 800 000 ml @ 100 mls/hr IV . Q10H [facility] Rx#:[id number] Oral 487 450 Other: Voiding Method Toilet Toilet Toilet # Voids 3 1 3 # Bowel Movements 1 1 - Constitutional General appearance: Present: cooperative, mild distress, obese - EENT Eyes: Present: anicteric sclerae, EOMI ENT: Present: hearing grossly normal - Respiratory Respiratory: bilateral: CTA (Respirations even and unlabored) - Cardiovascular Rhythm: regular Heart sounds: normal: S1, S2 Abnormal Heart Sounds: Absent: systolic murmur, diastolic murmur, rub, S3 Gallop, S4 Gallop, click, other - Peripheral edema leg Peripheral Edema: bilateral: Trace - Gastrointestinal General gastrointestinal: Present: normal bowel sounds, soft - Neurologic Neurologic: Present: CNII-XII intact - Musculoskeletal Musculoskeletal: Present: generalized weakness - Psychiatric Psychiatric Comment(s): Flat affect Psychiatric: Present: A&O x's 3, intact judgment & insight - Labs CBC & Chem 7: 03/15/19 07:42 03/15/19 07:42 Labs: Abnormal Lab Results - Last 24 Hours (Table) 03/15/19 03/15/19 Range/Units 07:42 07:42 RBC 3.42 L (3.80-5.40) m/uL Hgb 9.5 L (11.4-16.0) gm/dL Hct 31.2 L (34.0-46.0) % MCHC 30.3 L (31.0-37.0) g/dL RDW 16.8 H (11.5-15.5) % Neutrophils # 8.3 H (1.3-7.7) k/uL Lymphocytes # 0.6 L (1.0-4.8) k/uL BUN 35 H (7-17) mg/dL Glucose 101 H (74-99) mg/dL Calcium 10.9 H (8.4-10.2) mg/dL Total Bilirubin 4.5 H (0.2-1.3) mg/dL AST 562 H (14-36) U/L ALT 208 H (9-52) U/L Alkaline Phosphatase 733 H (38-126) U/L Albumin 3.4 L (3.5-5.0) g/dL Assessment and Plan (1) Malignant poorly differentiated neuroendocrine carcinoma, any site Narrative/Plan: Patient has received first cycle of carboplatin and Q[employer] [employer]ER for her poorly differentiated neuroendocrine carcinoma in the pelvic area. Treatment will resume in the outpatient setting once patient is discharged from rehabilitation. Have requested CBC once a week while patient is in rehabilitation Current Visit: Yes Status: Acute Priority: High Code(s): C7A.1 - MALIGNANT POORLY DIFFERENTIATED NEUROENDOCRINE TUMORS SNOMED Code(s): 047499048183844 (2) Anemia Narrative/Plan: Iron deficiency noted. Would not recommend by mouth iron at this time due to side effects of GI upset as well as constipation. Patient will be considered for parenteral iron in the outpatient setting in the future. Parenteral iron 1 ordered. Current Visit: Yes Status: Acute Priority: Medium Code(s): D64.9 - ANEMIA, UNSPECIFIED SNOMED Code(s): 434021735 (3) Metastases to the liver Current Visit: Yes Status: Acute Priority: High Code(s): C78.7 - SECONDARY MALIG NEOPLASM OF LIVER AND INTRAHEPATIC BILE DUCT SNOMED Code(s): 71812249 (4) Transaminitis Narrative/Plan: Elevated due to disease in the liver. Could possibly be exacerbated over the next 7-10 days due to treatment. Monitor trends. Metabolic panel has been ordered in the outpatient setting. Current Visit: Yes Status: Acute Priority: High Code(s): R74.0 - NONSPEC ELEV OF LEVELS OF TRANSAMNS & LACTIC ACID DEHYDRGNSE SNOMED Code(s): 383346503
[2019-03-15] MEDS ORDERED: SODIUM FERRIC GLUCONAT-SUCROSE 125 MG in SODIUM CHLORIDE 0.9% 100 ML IVPB ONE (16:06)
[2019-03-16] MEDS: HYDROcodone/APAP 5-325MG 1 EACH TAB PO PRN ×4 (00:52→21:40)
[2019-03-16] MEDS: SODIUM CHLORIDE 0.9% 1,000 ML IV SCH ×2 (06:04→17:36)
[2019-03-16 07:51] LABS: Anisocytosis Slight; Basophils % (A) 0 %; Eosinophils # (A) 0.1 k/uL (0-0.7); Eosinophils % (A) 1 %; HCT 30.6 % (34.0-46.0); HGB 9.3 gm/dL (11.4-16.0); Hypochromasia Marked; Lymphocytes # (A) 0.4 k/uL (1.0-4.8); Lymphocytes % (A) 5 %; MCH 27.7 pg (25.0-35.0); MCHC 30.5 g/dL (31.0-37.0); MCV 90.8 fL (80.0-100.0); Mean Platelet Volume 6.9; Monocytes # (A) 0.1 k/uL (0-1.0); Monocytes % (A) 1 %; Neutrophils % (A) 93 %; Platelet Count 385 k/uL (150-450); RBC 3.37 m/uL (3.80-5.40); RDW 16.5 % (11.5-15.5); WBC 8.7 k/uL (3.8-10.6)
[2019-03-16 08:03] LABS: Albumin 3.3 g/dL (3.5-5.0); Calcium 10.7 mg/dL (8.4-10.2); Potassium 4.3 mmol/L (3.5-5.1); Total Bilirubin 5.7 mg/dL (0.2-1.3); Total Protein 6.4 g/dL (6.3-8.2); Uric Acid 12.4 mg/dL (3.7-7.4)
[2019-03-16] MEDS: PANTOPRAZOLE 40 MG TABLET PO SCH ×2 (08:25→17:37)
[2019-03-16] MEDS: HYDROCHLOROTHIAZIDE 12.5 MG CAP PO SCH (08:25)
[2019-03-16] MEDS: POLYETHYLENE GLYCOL 3350 17 GM POWD.PACK PO SCH (08:25)
[2019-03-16] MEDS: CARVEDILOL 3.125 MG TAB PO SCH ×2 (08:25→17:37)
[2019-03-16] MEDS: BISACODYL 5 MG TABLET.DR PO SCH ×2 (08:26→20:10)
[2019-03-16] MEDS: SENNOSIDES-DOCUSATE SODIUM 1 EACH TAB PO SCH (08:54)
[2019-03-16] MEDS ORDERED: RASBURICASE 6 MG in SODIUM CHLORIDE 0.9% 46 ML IV STA (10:38)
[2019-03-16] MEDS ORDERED: LACTULOSE 20 GM/30 ML CUP PO ONE (11:05)
[2019-03-16 12:58] VITALS: RESP 16
[2019-03-16] MEDS: LACTULOSE 20 GM/30 ML CUP PO SCH (12:59)
--- NOTE | 2019-03-16 17:29 | P.PN ---
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 Objective - Vital Signs Vital signs: Vital Signs Temp 97.5 F L 03/16/19 12:57 Pulse 78 03/16/19 12:57 Resp 16 03/16/19 16:00 BP 133/80 03/16/19 12:57 Pulse Ox 97 03/16/19 12:57 Intake & Output 03/15/19 03/16/19 03/16/19 18:59 06:59 18:59 Intake Total 1850 1300 1296 Balance 1850 1300 1296 Weight 109.5 kg 109 kg Intake: Intake, IV Titration 1400 900 646 Amount Etoposide 200 mg In 500 Sodium Chloride 0.9% 500 ml 500 ml @ 510 mls/hr IV Q24H [facility] Rx#:[id number] Ondansetron 16 mg In 100 Sodium Chloride 0.9% 50 ml @ 232 mls/hr IVPB Q24H [facility] Rx#:[id number] Rasburicase 6 mg In 46 Sodium Chloride 0.9% 46 ml @ 92 mls/hr IV [facility] Rx#:[id number] Sodium Chloride 0.9% 1, 800 900 600 000 ml @ 100 mls/hr IV . Q10H [facility] Rx#:[id number] Oral 450 400 650 Other: Voiding Method Toilet Toilet Toilet # Voids 3 3 4 # Bowel Movements 1 1 5 - Constitutional General appearance: Present: cooperative, no acute distress, obese - EENT EENT Comment(s): Dry mucous membranes, no thrush or ulcers Eyes: Present: anicteric sclerae, EOMI ENT: Present: hearing grossly normal - Respiratory Respiratory: bilateral: CTA - Cardiovascular Rhythm: regular Heart sounds: normal: S1, S2 Abnormal Heart Sounds: Absent: systolic murmur, diastolic murmur, rub, S3 Gallop, S4 Gallop, click, other - Peripheral edema foot Peripheral Edema: bilateral: 1+ - Gastrointestinal General gastrointestinal: Present: distended, normal bowel sounds, soft - Musculoskeletal Musculoskeletal: Present: generalized weakness, strength equal bilaterally - Psychiatric Psychiatric: Present: A&O x's 3, appropriate affect - Labs CBC & Chem 7: 08/13/19 07:34 03/16/19 07:34 Labs: Abnormal Lab Results - Last 24 Hours (Table) 03/16/19 03/16/19 03/16/19 Range/Units 07:34 07:34 07:34 RBC 3.37 L (3.80-5.40) m/uL Hgb 9.3 L (11.4-16.0) gm/dL Hct 30.6 L (34.0-46.0) % MCHC 30.5 L (31.0-37.0) g/dL RDW 16.5 H (11.5-15.5) % Neutrophils # 8.0 H (1.3-7.7) k/uL Lymphocytes # 0.4 L (1.0-4.8) k/uL BUN 39 H (7-17) mg/dL Glucose 121 H (74-99) mg/dL Uric Acid 12.4 H (3.7-7.4) mg/dL Calcium 10.7 H (8.4-10.2) mg/dL Total Bilirubin 5.7 H (0.2-1.3) mg/dL AST 529 H (14-36) U/L ALT 200 H (9-52) U/L Alkaline Phosphatase 653 H (38-126) U/L Ammonia 39 H (<30) umol/L Albumin 3.3 L (3.5-5.0) g/dL Assessment and Plan (1) Malignant poorly differentiated neuroendocrine carcinoma, any site Narrative/Plan: Status post completion of first cycle of chemotherapy with carboplatin and etoposide overall decent tolerance. While inpatient we'll continue to monitor side effects and labs. Current Visit: Yes Status: Acute Priority: High Code(s): C7A.1 - MALIGNANT POORLY DIFFERENTIATED NEUROENDOCRINE TUMORS SNOMED Code(s): 474093839245009 (2) Anemia Narrative/Plan: Iron deficiency noted. Would not recommend by mouth iron at this time due to side effects of GI upset as well as constipation. Patient will be considered for parenteral iron in the outpatient setting in the future. Parenteral iron 1 administered Current Visit: Yes Status: Acute Priority: Medium Code(s): D64.9 - ANEMIA, UNSPECIFIED SNOMED Code(s): 363417992 (3) Metastases to the liver Current Visit: Yes Status: Acute Priority: High Code(s): C78.7 - SECONDARY MALIG NEOPLASM OF LIVER AND INTRAHEPATIC BILE DUCT SNOMED Code(s): 01983958 (4) Transaminitis Narrative/Plan: Some liver enzymes slightly elevated, some of them are stable. This is anticipated #1 due to disease, #2 anticipated increased due to treatment. Continue to monitor liver enzymes Current Visit: Yes Status: Acute Priority: High Code(s): R74.0 - NONSPEC ELEV OF LEVELS OF TRANSAMNS & LACTIC ACID DEHYDRGNSE SNOMED Code(s): 274440191 (5) Tumor lysis syndrome Narrative/Plan: Elitek has been ordered 1 dose. Labs daily until resolution. Phosphorous was WNL Current Visit: Yes Status: Acute Priority: High Code(s): E88.3 - TUMOR LYSIS SYNDROME SNOMED Code(s): 425502412 (6) Increased ammonia level Narrative/Plan: Suspect related to disease in the liver. Lactulose 1 dose ordered. Ammonia level daily. 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 Ongoing monitoring of labs, continued supportive care including hydration and supportive medications. Daily follow-up.
[2019-03-16] MEDS: ONDANSETRON 4 MG/2 ML VIAL IVP PRN (17:37)
--- NOTE | 2019-03-16 19:54 | P.PN ---
Subjective Progress Note Date: 03/16/19 (Delayed charting seen at 9:30 AM) Principal diagnosis: Abdominal pain Patient with 58-year-old female with no known past medical history who presented to the ER with multiple complaints. In the ER she underwent an extensive evaluation. On arrival she was found to have hypertensive urgency with blood pressure 176/111. Initial blood work showed a hemoglobin of 11.3, slightly elevated calcium at 12, elevated liver enzymes with an AST of 4:30, ALP of 144, alkaline phosphatase of 679, and total bilirubin of 2.5. Fecal occult blood was positive. Urinalysis was negative. Chest x-ray showed no acute process. Lumbar spine x-ray showed multilevel degenerative disc disease with facet arthropathy. CT of the abdomen and pelvis showed a large bilobed mass measuring 8.7 cm in the lower pelvis originating from the cervix although abuts the rectum and could be an exophytic rectal mass, there are innumerable hepatic metastasis with the largest measuring up to 8.7 cm, abnormal adenopathy within the abdomen and pelvis presumed metastatic, hydrophilic sized gallbladder, small volume abdominal ascites. Surgery evaluated the patient and recommended a MILLING MACHINE OPERATOR consultation and colonoscopy when stable. She was seen by oncology who recommended liver biopsy for more information prior to MILLING MACHINE OPERATOR consultation. She underwent an MRI of the lumbar spine which showed mild disc disease at multiple levels but no signs of metastatic disease. CT of the chest showed no intraparen chymal lung metastasis. She underwent an abdominal ultrasound which again showed innumerable hepatic lesions. Cardiology was consulted for positives and irregular heartbeat. They initiated Norvasc and hydrochlorothiazide secondary to high blood pressure and ordered an echocardiogram. Echocardiogram revealed severe concentric LVH, ejection fraction 60-65%, left ventricular outflow tract obstruction with a max gradient of 51, and mild pulmonary hypertension. She underwent liver biopsy on 03/08/19 which revealed metastatic poorly differentiated neuro endocrine carcinoma primary colorectal origin suspected. Patient had a Mediport placed on 03/10/19. Her liver enzymes and bilirubin continued to worsen. CT of the brain was performed which showed a 2 x 2 centimeter enhancing mass on the right parasellar region with osseous involvement. Radiation oncology was consulted and MRI was performed and this is considered consistent with meningioma. Bone scan was performed which showed uptake involving the left lower rib corresponding to old fracture without any additional evidence of skeletal lesions. Due to the aggressiveness of her cancer with metastatic disease oncology recommended inpatient chemotherapy with carboplatin and etoposide She completed her 3 day course on 03/15. Her uric acid increased and Elitek was ordered 1, there was concern for tumor lysis syndrome developing. Patient seen and examined at bedside. She continues to have abdominal pain and frequent loose stools. She denies any chest pain shortness of breath. She is having some nausea which is being treated with Zofran. She overall is feeling very fatigued and worn out. Objective - Vital Signs Vital signs: Vital Signs Temp 97.5 F L 03/16/19 12:57 Pulse 78 03/16/19 12:57 Resp 16 03/16/19 16:00 BP 133/80 03/16/19 12:57 Pulse Ox 97 03/16/19 12:57 Intake & Output 03/16/19 03/16/19 03/17/19 06:59 18:59 06:59 Intake Total 1300 1296 Balance 1300 1296 Weight 109 kg Intake: Intake, IV Titration 900 646 Amount Rasburicase 6 mg In 46 Sodium Chloride 0.9% 46 ml @ 92 mls/hr IV ONCE STA Rx#:[id number] Sodium Chloride 0.9% 1, 900 600 000 ml @ 100 mls/hr IV . Q10H [facility] Rx#:[id number] Oral 400 650 Other: Voiding Method Toilet Toilet # Voids 3 4 # Bowel Movements 1 5 - Exam General: non toxic, no distress, appears at stated age Derm: warm, dry Head: atraumatic, normocephalic, symmetric Eyes: EOMI, no lid lag, anicteric sclera Mouth: no lip lesion, mucus membranes moist Cardiovascular: S1S2 reg with systolic murmur grade 2, positive posterior tibial pulse bilateral, Lungs: Coarse breath sounds bilateral, no rhonchi, no rales , no accessory muscle use Abdominal: soft, nontender to palpation, no guarding, no appreciable organomegaly Ext: no gross muscle atrophy, 2+ edema, no contractures Neuro: CN II-XI grossly intact, no focal neuro deficits Psych: Alert, oriented, appropriate affect - Labs CBC & Chem 7: 03/16/19 07:34 03/16/19 07:34 Labs: Abnormal Lab Results - Last 24 Hours (Table) 03/16/19 03/16/19 03/16/19 Range/Units 07:34 07:34 07:34 RBC 3.37 L (3.80-5.40) m/uL Hgb 9.3 L (11.4-16.0) gm/dL Hct 30.6 L (34.0-46.0) % MCHC 30.5 L (31.0-37.0) g/dL RDW 16.5 H (11.5-15.5) % Neutrophils # 8.0 H (1.3-7.7) k/uL Lymphocytes # 0.4 L (1.0-4.8) k/uL BUN 39 H (7-17) mg/dL Glucose 121 H (74-99) mg/dL Uric Acid 12.4 H (3.7-7.4) mg/dL Calcium 10.7 H (8.4-10.2) mg/dL Total Bilirubin 5.7 H (0.2-1.3) mg/dL AST 529 H (14-36) U/L ALT 200 H (9-52) U/L Alkaline Phosphatase 653 H (38-126) U/L Ammonia 39 H (<30) umol/L Albumin 3.3 L (3.5-5.0) g/dL Assessment and Plan Assessment: Poorly differentiated neuroendocrine carcinoma with metastatic disease to the liver -Status post initial course of cisplatin and etoposide -Oncology recommendations Elevated uric acid levels and calcium levels probable tumor lysis syndrome -Status post ELiteck 1 -Repeat CMP, phosphorus, and uric acid levels in the morning Transaminitis likely secondary to metastatic disease of the liver and likely worsen after chemotherapy -Continue to follow CMP -Ammonia level ordered stat and was elevated at 38, patient started on daily lactulose. Has already required this 1 this admission. Anemia -likely multifactorial -No iron deficiency -Follow CBC -Likely component of chemotherapy-induced anemia Left ventricular hypertrophy with left ventricular outflow tract obstruction -Cardiology recommendations -Continue with Coreg and hydrochlorothiazide Hypertensive urgency, resolved Debility -Plan is for inpatient rehab -PT/OT Dehydration, resolved DVT prophylaxis: SCDs Discussed with: Patient, nursing Anticipated discharge: -[address]: [facility] A total of 45 minutes was spent on the care of this complex patient more than 5 0% of the time was spent in counseling and care coordination.
[2019-03-17] MEDS: SODIUM CHLORIDE 0.9% 1,000 ML IV SCH ×3 (01:08→21:27)
[2019-03-17] MEDS: HYDROcodone/APAP 5-325MG 1 EACH TAB PO PRN ×4 (05:46→21:28)
[2019-03-17] MEDS: CARVEDILOL 3.125 MG TAB PO SCH ×2 (09:09→17:49)
[2019-03-17] MEDS: PANTOPRAZOLE 40 MG TABLET PO SCH ×2 (09:09→17:49)
[2019-03-17] MEDS: LACTULOSE 20 GM/30 ML CUP PO SCH (09:11)
[2019-03-17] MEDS: POLYETHYLENE GLYCOL 3350 17 GM POWD.PACK PO SCH (09:12)
[2019-03-17] MEDS: SENNOSIDES-DOCUSATE SODIUM 1 EACH TAB PO SCH (09:12)
[2019-03-17] MEDS: HYDROCHLOROTHIAZIDE 12.5 MG CAP PO SCH (09:13)
[2019-03-17] MEDS: BISACODYL 5 MG TABLET.DR PO SCH ×2 (09:13→21:25)
[2019-03-17 09:19] LABS: Anisocytosis Slight; Basophils % (A) 0 %; Eosinophils % (A) 0 %; HCT 28.3 % (34.0-46.0); HGB 8.5 gm/dL (11.4-16.0); Hypochromasia Marked; Lymphocytes # (A) 0.5 k/uL (1.0-4.8); Lymphocytes % (A) 8 %; MCH 27.3 pg (25.0-35.0); MCHC 29.9 g/dL (31.0-37.0); MCV 91.3 fL (80.0-100.0); Mean Platelet Volume 7.4; Monocytes # (A) 0.1 k/uL (0-1.0); Monocytes % (A) 2 %; Neutrophils # (A) 5.2 k/uL (1.3-7.7); Neutrophils % (A) 90 %; Platelet Count 283 k/uL (150-450); RDW 16.5 % (11.5-15.5); WBC 5.8 k/uL (3.8-10.6)
[2019-03-17] MEDS: ONDANSETRON 4 MG/2 ML VIAL IVP PRN ×2 (09:26→18:25)
[2019-03-17 09:32] LABS: Albumin 2.9 g/dL (3.5-5.0); Calcium 10.1 mg/dL (8.4-10.2); Potassium 3.7 mmol/L (3.5-5.1); Total Bilirubin 6.1 mg/dL (0.2-1.3); Total Protein 5.8 g/dL (6.3-8.2); Uric Acid 4.6 mg/dL (3.7-7.4)
--- NOTE | 2019-03-17 14:09 | P.PN ---
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 She is weak. Objective - Vital Signs Vital signs: Vital Signs Temp 97.7 F 03/17/19 12:21 Pulse 78 03/17/19 12:21 Resp 16 03/17/19 12:21 BP 117/67 03/17/19 12:21 Pulse Ox 96 03/17/19 12:21 Intake & Output 03/16/19 03/17/19 03/17/19 18:59 06:59 18:59 Intake Total 1396 975 Balance 1396 975 Weight 110 kg Intake: Intake, IV Titration 646 900 Amount Rasburicase 6 mg In 46 Sodium Chloride 0.9% 46 ml @ 92 mls/hr IV ONCE STA Rx#:[id number] Sodium Chloride 0.9% 1, 600 900 000 ml @ 100 mls/hr IV . Q10H [facility] Rx#:[id number] Oral 750 75 Other: Voiding Method Toilet Toilet # Voids 4 1 # Bowel Movements 5 1 - Constitutional General appearance: Present: cooperative, no acute distress, obese - EENT EENT Comment(s): hint of icterus to sclera Eyes: Present: EOMI ENT: Present: hearing grossly normal, normal oropharynx - Respiratory Respiratory: bilateral: CTA - Cardiovascular Rhythm: regular Heart sounds: normal: S1, S2 - Peripheral edema leg Peripheral Edema: bilateral: Trace - Gastrointestinal General gastrointestinal: Present: normal bowel sounds, soft Localized gastrointestinal: tender: RUQ - Neurologic Neurologic Comment(s): More alert today Neurologic: Present: CNII-XII intact - Musculoskeletal Musculoskeletal: Present: generalized weakness - Psychiatric Psychiatric: Present: A&O x's 3, appropriate affect, intact judgment & insight - Labs CBC & Chem 7: 03/17/19 08:56 03/17/19 08:56 Labs: Abnormal Lab Results - Last 24 Hours (Table) 03/17/19 03/17/19 Range/Units 08:56 08:56 RBC 3.10 L (3.80-5.40) m/uL Hgb 8.5 L (11.4-16.0) gm/dL Hct 28.3 L (34.0-46.0) % MCHC 29.9 L (31.0-37.0) g/dL RDW 16.5 H (11.5-15.5) % Lymphocytes # 0.5 L (1.0-4.8) k/uL BUN 33 H (7-17) mg/dL Total Bilirubin 6.1 H (0.2-1.3) mg/dL AST 475 H (14-36) U/L ALT 173 H (9-52) U/L Alkaline Phosphatase 568 H (38-126) U/L Total Protein 5.8 L (6.3-8.2) g/dL Albumin 2.9 L (3.5-5.0) g/dL Assessment and Plan (1) Malignant poorly differentiated neuroendocrine carcinoma, any site Narrative/Plan: Status post completion of first cycle of chemotherapy with carboplatin and etoposide, overall decent tolerance. While inpatient we'll continue to monitor side effects and labs. Current Visit: Yes Status: Acute Priority: High Code(s): C7A.1 - MALIGNANT POORLY DIFFERENTIATED NEUROENDOCRINE TUMORS SNOMED Code(s): 977470468435506 (2) Anemia Narrative/Plan: Stable, no intervention today Current Visit: Yes Status: Acute Priority: Medium Code(s): D64.9 - ANEMIA, UNSPECIFIED SNOMED Code(s): 614261286 (3) Metastases to the liver Current Visit: Yes Status: Acute Priority: High Code(s): C78.7 - SECONDARY MALIG NEOPLASM OF LIVER AND INTRAHEPATIC BILE DUCT SNOMED Code(s): 13744550 (4) Transaminitis Narrative/Plan: Labs reviewed. R/T metastatic disease and treatment. Bilirubin increased but, other LFTs are slightly better. Cont to monitor. Hopeful that liver will recover Current Visit: Yes Status: Acute Priority: High Code(s): R74.0 - NONSPEC ELEV OF LEVELS OF TRANSAMNS & LACTIC ACID DEHYDRGNSE SNOMED Code(s): 142475169 (5) Tumor lysis syndrome Narrative/Plan: Phos level was normal on yesterday's lab check. Uric acid normal today. 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 Ongoing monitoring of labs, continued supportive care including hydration and supportive medications. Hudson fluid intake encouraged. Did encourage ambulation as pt mental status is better today. Anticipate discharge in the next 2 days as long as pt continues to improve
--- NOTE | 2019-03-17 16:38 | P.PN ---
Subjective Progress Note Date: 03/17/19 (Delayed charting patient seen at 9 a.m.) Principal diagnosis: Abdominal pain Patient with 58-year-old female with no known past medical history who presented to the ER with multiple complaints. In the ER she underwent an extensive evaluation. On arrival she was found to have hypertensive urgency with blood pressure 176/111. Initial blood work showed a hemoglobin of 11.3, slightly elevated calcium at 12, elevated liver enzymes with an AST of 4:30, ALP of 144, alkaline phosphatase of 679, and total bilirubin of 2.5. Fecal occult blood was positive. Urinalysis was negative. Chest x-ray showed no acute process. Lumbar spine x-ray showed multilevel degenerative disc disease with facet arthropathy. CT of the abdomen and pelvis showed a large bilobed mass me asuring 8.7 cm in the lower pelvis originating from the cervix although abuts the rectum and could be an exophytic rectal mass, there are innumerable hepatic metastasis with the largest measuring up to 8.7 cm, abnormal adenopathy within the abdomen and pelvis presumed metastatic, hydrophilic sized gallbladder, small volume abdominal ascites. Surgery evaluated the patient and recommended a QUALITY COORDINATOR consultation and colonoscopy when stable. She was seen by oncology who recommended liver biopsy for more information prior to QUALITY COORDINATOR consultation. She underwent an MRI of the lumbar spine which showed mild disc disease at multiple levels but no signs of metastatic disease. CT of the chest showed no int raparenchymal lung metastasis. She underwent an abdominal ultrasound which again showed innumerable hepatic lesions. Cardiology was consulted for positives and irregular heartbeat. They initiated Norvasc and hydrochlorothiazide secondary to high blood pressure and ordered an echocardiogram. Echocardiogram revealed severe concentric LVH, ejection fraction 60-65%, left ventricular outflow tract obstruction with a max gradient of 51, and mild pulmonary hypertension. She underwent liver biopsy on 03/08/19 which revealed metastatic poorly differentiated neuro endocrine carcinoma primary colorectal origin suspected. Patient had a Mediport placed on 03/10/19. Her liver enzymes and bilirubin continued to worsen. CT of the brain was performed which showed a 2 x 2 centimeter enhancing mass on the right parasellar region with osseous involvement. Radiation oncology was consulted and MRI was performed and this is considered consistent with meningioma. Bone scan was performed which showed uptake involving the left lower rib corresponding to old fracture without any additional evidence of skeletal lesions. Due to the aggressiveness of her cancer with metastatic disease oncology recommended inpatient chemotherapy with carboplatin and etoposide She completed her 3 day course on 03/15. Her uric acid increased and Elitek was ordered 1, there was concern for tumor lysis syndrome developing. Her uric acid decreased. Patient seen and examined at bedside. Still having poor appetite. Able to drink but not able to eat well. Having normal prior to meals. He reports no shortness of breath or chest pain. Still having some abdominal pain that appears to be getting better. He continues to have diarrhea without blood. Objective - Vital Signs Vital signs: Vital Signs Temp 97.7 F 03/17/19 12:21 Pulse 78 03/17/19 12:21 Resp 16 03/17/19 12:21 BP 117/67 03/17/19 12:21 Pulse Ox 96 03/17/19 12:21 Intake & Output 03/16/19 03/17/19 03/17/19 18:59 06:59 18:59 Intake Total 1396 975 Balance 1396 975 Weight 110 kg Intake: Intake, IV Titration 646 900 Amount Rasburicase 6 mg In 46 Sodium Chloride 0.9% 46 ml @ 92 mls/hr IV ONCE STA Rx#:[id number] Sodium Chloride 0.9% 1, 600 900 000 ml @ 100 mls/hr IV . Q10H [facility] Rx#:[id number] Oral 750 75 Other: Voiding Method Toilet Toilet # Voids 4 1 # Bowel Movements 5 1 - Exam General: non toxic, no distress, appears at stated age, obese Derm: warm, dry Head: atraumatic, normocephalic, symmetric Eyes: EOMI, no lid lag, anicteric sclera Mouth: no lip lesion, mucus membranes moist Cardiovascular: S1S2 reg with systolic murmur grade 2, positive posterior tibial pulse bilateral, Lungs: Coarse breath sounds bilateral, no rhonchi, no rales , no accessory muscle use Abdominal: soft, nontender to palpation, no guarding, no appreciable organomegaly Ext: no gross muscle atrophy, 2+ edema, no contractures Neuro: CN II-XI grossly intact, no focal neuro deficits Psych: Alert, oriented, appropriate affect - Labs CBC & Chem 7: 03/17/19 08:56 03/17/19 08:56 Labs: Abnormal Lab Results - Last 24 Hours (Table) 03/17/19 03/17/19 Range/Units 08:56 08:56 RBC 3.10 L (3.80-5.40) m/uL Hgb 8.5 L (11.4-16.0) gm/dL Hct 28.3 L (34.0-46.0) % MCHC 29.9 L (31.0-37.0) g/dL RDW 16.5 H (11.5-15.5) % Lymphocytes # 0.5 L (1.0-4.8) k/uL BUN 33 H (7-17) mg/dL Total Bilirubin 6.1 H (0.2-1.3) mg/dL AST 475 H (14-36) U/L ALT 173 H (9-52) U/L Alkaline Phosphatase 568 H (38-126) U/L Total Protein 5.8 L (6.3-8.2) g/dL Albumin 2.9 L (3.5-5.0) g/dL Assessment and Plan Assessment: Poorly differentiated neuroendocrine carcinoma with metastatic disease to the liver -Status post initial course of cisplatin and etoposide -Oncology recommendations Tumor lysis syndrome -Status post ELiteck 1 on 03/16 -Repeat CMP, phosphorus, and uric acid levels in the morning Transaminitis likely secondary to metastatic disease of the liver and likely worsen after chemotherapy - Liver enzymes improving and bilirubin elevating and was anticipated with recovery of the liver, for continued improvement -Continue to follow CMP -Ammonia level ordered stat and was elevated at 38, patient started on daily lactulose 03/16 her lungs are worse GI bleeding and this was subsequently withheld on 03/17 as her ammonia level was less than 9. Anemia -likely multifactorial -No iron deficiency -Follow CBC -Likely component of chemotherapy-induced anemia Left ventricular hypertrophy with left ventricular outflow tract obstruction -Cardiology recommendations -Continue with Coreg and hydrochlorothiazide Debility -Plan is for inpatient rehab -PT/OT Dehydration, resolved Hypertensive urgency, resolved DVT prophylaxis: SCDs Discussed with: Patient, nursing Anticipated discharge: [address]: [facility] A total of 35 minutes was spent on the care of this complex patient more than 50% of the time was spent in counseling and care coordination.
[2019-03-18] MEDS: HYDROcodone/APAP 5-325MG 1 EACH TAB PO PRN ×3 (01:24→09:52)
[2019-03-18 08:26] LABS: Anisocytosis Slight; Basophils % (A) 0 %; Eosinophils % (A) 1 %; HCT 24.1 % (34.0-46.0); HGB 7.3 gm/dL (11.4-16.0); Hypochromasia Marked; Lymphocytes # (A) 0.5 k/uL (1.0-4.8); Lymphocytes % (A) 13 %; MCH 27.6 pg (25.0-35.0); MCHC 30.1 g/dL (31.0-37.0); MCV 91.8 fL (80.0-100.0); Mean Platelet Volume 7.3; Monocytes # (A) 0.1 k/uL (0-1.0); Monocytes % (A) 2 %; Neutrophils # (A) 3.6 k/uL (1.3-7.7); Neutrophils % (A) 85 %; Platelet Count 227 k/uL (150-450); RBC 2.62 m/uL (3.80-5.40); RDW 16.5 % (11.5-15.5); WBC 4.2 k/uL (3.8-10.6)
[2019-03-18 08:38] LABS: ALT 201 U/L (9-52); AST 603 U/L (14-36); African American GFR (CKD) >90 (>60 ml/min/1.73 sqM); Albumin 2.7 g/dL (3.5-5.0); Alkaline Phosphatase 511 U/L (38-126); Anion Gap 5 mmol/L; Blood Urea Nitrogen 30 mg/dL (7-17); Calcium 9.8 mg/dL (8.4-10.2); Carbon Dioxide 30 mmol/L (22-30); Chloride 104 mmol/L (98-107); Glucose 98 mg/dL (74-99); Phosphorus 2.3 mg/dL (2.5-4.5); Potassium 3.9 mmol/L (3.5-5.1); Sodium 139 mmol/L (137-145); Total Bilirubin 7.2 mg/dL (0.2-1.3); Total Protein 5.5 g/dL (6.3-8.2); Uric Acid 3.1 mg/dL (3.7-7.4)
[2019-03-18] MEDS: POLYETHYLENE GLYCOL 3350 17 GM POWD.PACK PO SCH (09:35)
[2019-03-18] MEDS: PANTOPRAZOLE 40 MG TABLET PO SCH (09:35)
[2019-03-18] MEDS: SENNOSIDES-DOCUSATE SODIUM 1 EACH TAB PO SCH (09:36)
[2019-03-18] MEDS: CARVEDILOL 3.125 MG TAB PO SCH (09:36)
[2019-03-18] MEDS: BISACODYL 5 MG TABLET.DR PO SCH (09:36)
[2019-03-18] MEDS: HYDROCHLOROTHIAZIDE 12.5 MG CAP PO SCH (09:36)
--- NOTE | 2019-03-18 10:55 | P.PN ---
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 She has no complaints other than generalized fatigue and weakness. She has been tolerating fluids, states she ate a good dinner last night. No nausea, cough, right upper quadrant continues to be tender but the discomfort is manageable at this time, she is able to walk only short distances with standby assist, she is weak when standing Objective - Vital Signs Vital signs: Vital Signs Temp 97.5 F L 03/18/19 05:00 Pulse 84 03/18/19 05:00 Resp 16 03/18/19 05:00 BP 125/66 03/18/19 05:00 Pulse Ox 93 L 03/18/19 05:00 Intake & Output 03/17/19 03/18/19 03/18/19 18:59 06:59 18:59 Intake Total 600 1310 Balance 600 1310 Weight 115 kg Intake: Intake, IV Titration 320 Amount Sodium Chloride 0.9% 1, 320 000 ml @ 100 mls/hr IV . Q10H [facility] Rx#:[id number] Oral 600 990 Other: Voiding Method Toilet # Voids 3 3 # Bowel Movements 2 1 - Constitutional General appearance: Present: cooperative, no acute distress, obese - EENT Eyes: Present: EOMI, scleral icterus ENT: Present: hearing grossly normal - Respiratory Details: Respirations even and unlabored at rest, no audible breath sounds Respiratory: bilateral: CTA - Cardiovascular Details: Skin is warm and dry, pedal pulses palpable 2+, trace edema in the lower extremities Heart sounds: normal: S1, S2 - Gastrointestinal General gastrointestinal: Present: soft Localized gastrointestinal: tender: RUQ - Integumentary Integumentary: Present: jaundiced - Neurologic Neurologic: Present: CNII-XII intact - Musculoskeletal Musculoskeletal: Present: generalized weakness - Psychiatric Psychiatric Comment(s): Flat affect Psychiatric: Present: A&O x's 3 - Labs CBC & Chem 7: 03/18/19 07:49 03/18/19 07:49 Labs: Abnormal Lab Results - Last 24 Hours (Table) 03/18/19 03/18/19 Range/Units 07:49 07:49 RBC 2.62 L (3.80-5.40) m/uL Hgb 7.3 L (11.4-16.0) gm/dL Hct 24.1 L (34.0-46.0) % MCHC 30.1 L (31.0-37.0) g/dL RDW 16.5 H (11.5-15.5) % Lymphocytes # 0.5 L (1.0-4.8) k/uL BUN 30 H (7-17) mg/dL Uric Acid 3.1 L (3.7-7.4) mg/dL Phosphorus 2.3 L (2.5-4.5) mg/dL Total Bilirubin 7.2 H (0.2-1.3) mg/dL AST 603 H (14-36) U/L ALT 201 H (9-52) U/L Alkaline Phosphatase 511 H (38-126) U/L Total Protein 5.5 L (6.3-8.2) g/dL Albumin 2.7 L (3.5-5.0) g/dL Assessment and Plan (1) Malignant poorly differentiated neuroendocrine carcinoma, any site Narrative/Plan: Status post completion of first cycle of chemotherapy with carboplatin and etoposide, no significant toxicities to date. Current Visit: Yes Status: Acute Priority: High Code(s): C7A.1 - MALIGNANT POORLY DIFFERENTIATED NEUROENDOCRINE TUMORS SNOMED Code(s): 607981926750715 (2) Anemia Narrative/Plan: Stable Current Visit: Yes Status: Acute Priority: Medium Code(s): D64.9 - ANEMIA, UNSPECIFIED SNOMED Code(s): 252400450 (3) Metastases to the liver Current Visit: Yes Status: Acute Priority: High Code(s): C78.7 - SECONDARY MALIG NEOPLASM OF LIVER AND INTRAHEPATIC BILE DUCT SNOMED Code(s): 89465561 (4) Transaminitis Narrative/Plan: Labs reviewed. R/T metastatic disease and treatment. Bilirubin increased, LFTs are slightly worse. Cont to monitor. Hopeful that liver will recover within a week of completion of treatment Current Visit: Yes Status: Acute Priority: High Code(s): R74.0 - NONSPEC ELEV OF LEVELS OF TRANSAMNS & LACTIC ACID DEHYDRGNSE SNOMED Code(s): 575799523 (5) Tumor lysis syndrome Current Visit: Yes Status: Resolved Priority: High Code(s): E88.3 - TUMOR LYSIS SYNDROME SNOMED Code(s): 523367211 (6) Increased ammonia level Narrative/Plan: Patient will need intermittent lactulose to keep ammonia levels down. Current Visit: Yes Status: Acute Priority: High Code(s): R79.89 - OTHER SPECIFIED ABNORMAL FINDINGS OF BLOOD CHEMISTRY SNOMED Code(s): 718184947 Plan: Case was discussed with high risk case manager as well as nursing. Plan is for patient to go to inpatient rehab. Agree with transfer to inpatient rehab as we can follow patient and monitor her closely as she recovers from treatment. Patient is doing fairly well with fluids. She was encouraged to participate in rehabilitation, which she is agreeable to do. From a Hematology/Oncology standpoint patient is okay to be transferred to inpatient rehabilitation once she is cleared by Attending and consulting Physicians.
[2019-03-18 10:56] VITALS: BMI 37.4
[2019-03-18 12:04] VITALS: BP 115/67; TEMP 98.1
[2019-03-18] MEDS ORDERED: LACTULOSE 20 GM/30 ML CUP PO SCH (13:00)
--- NOTE | 2019-03-18 14:27 | P.DS ---
Providers Date of admission: 03/05/19 16:52 Expected date of discharge: 03/18/19 Attending physician: Luda Nugent MD Consults: 03/05/19 16:51 Consult Physician Stat Consulting Provider: James Barber Consult Reason/Comments: Rectal mass, mets Do you want consulting provider notified?: Yes 03/05/19 18:13 Consult Physician Stat Consulting Provider: Kasi Blanco Consult Reason/Comments: Lower back pain, rad to buttocks Do you want consulting provider notified?: Yes 03/06/19 12:56 Consult Physician Routine Consulting Provider: Quoc Tarango Consult Reason/Comments: Irregular heartbeat, with pauses. Do you want consulting provider notified?: Yes 03/11/19 10:14 Consult Physician Routine Consulting Provider: Bubba Elliott Consult Reason/Comments: brain met Do you want consulting provider notified?: Yes 03/12/19 14:15 Consult Physician Stat Consulting Provider: Lm Arthur Consult Reason/Comments: eval for inpatient rehab Do you want consulting provider notified?: Yes Primary care physician: Stated None Hospital Course: Discharge Diagnosis: Poorly differentiated neuroendocrine carcinoma with metastatic disease to the liver Tumor lysis syndrome Transaminitis likely secondary to metastatic disease of the liver and likely worsen after chemotherapy Anemia Left ventricular hypertrophy with left ventricular outflow tract obstruction Debility Dehydration, resolved Hypertensive urgency, resolved Hospital Course: Patient with 58-year-old female with no known past medical history who presented to the ER with multiple complaints. In the ER she underwent an extensive evaluation. On arrival she was found to have hypertensive urgency with blood pressure 176/111. Initial blood work showed a hemoglobin of 11.3, slightly elevated calcium at 12, elevated liver enzymes with an AST of 430, ALP of 144, alkaline phosphatase of 679, and total bilirubin of 2.5. Fecal occult blood was positive. Urinalysis was negative. Chest x-ray showed no acute process. Lumbar spine x-ray showed multilevel degenerative disc disease with facet arthropathy. CT of the abdomen and pelvis showed a large bilobed mass measuring 8.7 cm in the lower pelvis originating from the cervix although abuts the rectum and could be an exophytic rectal mass, there are innumerable hepatic metastasis with the largest measuring up to 8.7 cm, abnormal adenopathy within the abdomen and pelvis presumed metastatic, hydrophilic sized gallbladder, small volume abdominal ascites. Surgery evaluated the patient and recommended a [employer] consultation and colonoscopy when stable. She was seen by oncology who recommended liver biopsy for more information prior to [employer] consultation. She underwent an MRI of the lumbar spine which showed mild disc disease at multiple levels but no signs of metastatic disease. CT of the chest showed no intraparenchymal lung metastasis. She underwent an abdominal ultrasound which again showed innumerable hepatic lesions. Cardiology was consulted for positives and irregular heartbeat. They initiated Norvasc and hydrochlorothiazide secondary to high blood pressure and ordered an echo cardiogram. Echocardiogram revealed severe concentric LVH, ejection fraction 60-65%, left ventricular outflow tract obstruction with a max gradient of 51, and mild pulmonary hypertension. She underwent liver biopsy on 03/08/19 which revealed metastatic poorly differentiated neuro endocrine carcinoma primary colorectal origin suspected. Patient had a Mediport placed on 03/10/19. Her liver enzymes and bilirubin continued to worsen. CT of the brain was performed which showed a 2 x 2 centimeter enhancing mass on the right parasellar region with osseous involvement. Radiation oncology was consulted and MRI was performed and this is considered consistent with meningioma. Bone scan was performed which showed uptake involving the left lower rib corresponding to old fracture without any additional evidence of skeletal lesions. Due to the aggressiveness of her cancer with metastatic disease oncology recommended inpatient chemotherapy with carboplatin and etoposide She completed her 3 day course on 03/15. Her uric acid increased and Elitek was ordered 1, there was concern for tumor lysis syndrome developing. Her uric acid decreased. She did have some diarrhea but was on multiple stool softners. She had elevated ammonia levels and required lactulose which optimized to every other day. She continued to do well and had stable labs. She was determined stable for discharged to SNF Patient seen and examined at bedside. No chest pain, no shortness of breath, Fatigued, still with frequent bowel movements, no nausea, still with low appetite. Vital signs reviewed and stable. General: non toxic, no distress, appears at stated age Derm: warm, dry Head: atraumatic, normocephalic, symmetric Eyes: EOMI, no lid lag, anicteric sclera Mouth: no lip lesion, mucus membranes moist Cardiovascular: S1S2 reg, no murmur, positive posterior tibial pulse bilateral, Lungs: Course breath sounds bilateral, no rhonchi, no rales , no accessory muscle use Abdominal: soft, nontender to palpation, no guarding, no appreciable organomegaly Ext: no gross muscle atrophy, 2+ edema, no contractures Neuro: CN II-XI grossly intact, no focal neuro deficits Psych: Alert, oriented, appropriate affect A total of 35 minutes of time were spent preparing this complex discharge summary . Pertinent Studies: as dictated above in hospital course Procedures: 03/10/19- Liver biopsy 03/08/19- Mediport Patient Condition at Discharge: Stable Plan - Discharge Summary Discharge Rx Participant: Yes New Discharge Prescriptions: New Lactulose [Cephulac] 20 gm PO Q48H ml Carvedilol [Coreg] 3.125 mg PO BID-W/MEALS tab Hydrochlorothiazide [Hydrodiuril] 25 mg PO DAILY cap HYDROcodone/APAP 5-325MG [[place] 5-325] 1 each PO Q4HR PRN #0 tab PRN Reason: Moderate Pain Pantoprazole [Protonix] 40 mg PO AC-BID tablet.dr Discontinued Naproxen Sodium [Aleve] 1 tab-cap PO HS Discharge Medication List Carvedilol [Coreg] 3.125 mg PO BID-W/MEALS tab 03/18/19 [Rx] HYDROcodone/APAP 5-325MG [[place] 5-325] 1 each PO Q4HR PRN #0 tab 03/18/19 [Rx] Hydrochlorothiazide [Hydrodiuril] 25 mg PO DAILY cap 03/18/19 [Rx] Lactulose [Cephulac] 20 gm PO Q48H ml 03/18/19 [Rx] Pantoprazole [Protonix] 40 mg PO AC-BID tablet. 03/18/19 [Rx] Follow up Appointment(s)/Referral(s): James Barber MD [STAFF PHYSICIAN] - 2 Weeks Ambulatory/Diagnostic Orders: Comprehensive Metabolic Panel [LAB.AMB] Time Frame: 3 Days, Location: None Selected Miscellaneous Lab Order [LAB.AMB] Location: None Selected Patient Instructions/Handouts: Hydrochlorothiazide (By mouth), Hydrocodone/Acetaminophen (By mouth), Hydralazine (By mouth), Amlodipine (By mouth), Anemia (DC) Activity/Diet/Wound Care/Special Instructions: Diet: regular Please take all medications as advised. Repeat CBC, CMP, phos in AM Will need consult for Dr. Barber on admission to [facility]. Discharge Disposition: OTHER INSTITUTION NOT DEFINED
[2019-03-18] MEDS: SODIUM CHLORIDE 0.9% 1,000 ML IV SCH (15:08)
[2019-03-18 17:34] VITALS: PULSE 84
== END 2019-03-18 17:00 | DRG 843 ==
LOC: EC 12:00 → 3NMEDONC 16:52
PROVIDERS: ADMIT Internal Medicine; ATTEND Internal Medicine
PROC: 0FB13ZX Excision of Right Lobe Liver, Percutaneous Approach, Diagnostic (ICD-10-PCS; 2019-03-08)
PROC: 02HV33Z Insertion of Infusion Device into Superior Vena Cava, Percutaneous Approach (ICD-10-PCS; 2019-03-10)
PROC: 0JHH3WZ Insertion of Totally Implantable Vascular Access Device into Left Lower Arm Subcutaneous Tissue and Fascia, Percutaneous Approach (ICD-10-PCS; principal; 2019-03-10 13:45)
DX: C7A.8 Other malignant neuroendocrine tumors (principal); E88.3 Tumor lysis syndrome; G93.41 Metabolic encephalopathy; I50.32 Chronic diastolic (congestive) heart failure; C78.7 Secondary malignant neoplasm of liver and intrahepatic bile duct; D32.9 Benign neoplasm of meninges, unspecified; D50.0 Iron deficiency anemia secondary to blood loss (chronic); D63.0 Anemia in neoplastic disease; E86.0 Dehydration; F32.9 Major depressive disorder, single episode, unspecified; G89.29 Other chronic pain; I11.0 Hypertensive heart disease with heart failure; I16.0 Hypertensive urgency; I27.20 Pulmonary hypertension, unspecified; I49.3 Ventricular premature depolarization; K59.00 Constipation, unspecified; M51.36 Other intervertebral disc degeneration, lumbar region; M54.30 Sciatica, unspecified side; Z79.899 Other long term (current) drug therapy; Z82.3 Family history of stroke; Z82.49 Family history of ischemic heart disease and other diseases of the circulatory system; R59.0 Localized enlarged lymph nodes; Z79.1 Long term (current) use of non-steroidal anti-inflammatories (NSAID); Z60.2 Problems related to living alone; R74.0 Nonspecific elevation of levels of transaminase and lactic acid dehydrogenase [LDH]
CPT/HCPCS: 36415; 47000; 70460; 70553; 71045; 71046; 71260; 72100; 72158; 74177; 76705; 77001; 77012; 78306; 80053; 81001; 82140; 82150; 82272; 82378; 82728; 83540; 83550; 83615; 83690; 83735; 84100; 84443; 84484; 84550; 85025; 85027; 85045; 85610; 85730; 86304; 88307; 88341; 88342; 93005; 93306; 96361; 96374; 96375; 99285